=== PATIENT | male | born 1945 | race Caucasian/White ===

== ENCOUNTER 2022-03-22 05:00 | Outpatient (REF) | payer MEDICARE, SELFPAY ==
[2022-03-22 09:47] LABS: ALB/GLOB Ratio 1.1 RATIO (0.9-2.4); AST(SGOT) 7 U/L (15-37); Alanine Aminotransfer ALT/SGPT 13 U/L (16-61); Alkaline Phosphatase 49 U/L (45-117); Anion Gap 8 (5-15); BUN 14 mg/dL (7-18); BUN/Creat Ratio 15.3 RATIO (10-20); Calcium,Total 8.8 mg/dL (8.5-10.1); Chloride 109 mmol/L (98-107); Cholesterol 108 mg/dL (200); Creatinine, Serum 0.92 mg/dL (0.70-1.30); EST Glomerular Filtration Rate 86 mL/min (>60); Est Glom Filt Rate - Afr Amer 103 mL/min (>60); Globulin 2.8 g/dL (2.2-4.2); Glucose 85 mg/dL (74-106); High Density Lipoprotein 51 mg/dL; Magnesium 2.3 mg/dL (1.6-2.6); Potassium 3.5 mmol/L (3.5-5.1); Protein, Total 5.8 g/dL (6.4-8.2); Sodium Level 143 mmol/L (136-145); Thyroid Stim Hormone (TSH) 0.75 uIU/mL (0.358-3.74); Triglycerides 63 mg/dL; Very Low Density Lipoprotein 13 mg/dL (5-40)
[2022-03-22 09:55] LABS: Erythrocyte Sedimentation Rate < 1 mm/hr (0-20)
[2022-03-22 09:59] LABS: Hematocrit 41.3 % (40-54); Hemoglobin 13.4 g/dL (13.0-16.5); Mean Corp Hgb Conc 32.4 g/dL (32-36); Mean Corpuscular Hgb 30.1 pg (27.0-32.0); Mean Corpuscular Volume 92.8 fL (80-94); Mean Platelet Vol. 10.6 fl (6.2-12.0); Platelet Count 160 K/mm3 (150-450); RBC Distribution Width CV 14.9 % (11.6-14.6); RBC Distribution Width SD 51.2 fl (35.1-43.9); Red Blood Count 4.45 M/mm3 (4.6-6.2); White Blood Count 8.5 K/mm3 (4.4-11.0)
[2022-03-22 10:12] LABS: Vitamin D,25 Hydroxy 14.8 ng/mL
[2022-03-22 10:40] LABS: Hemoglobin A1c 5.2 % (3.8-5.6)
== END 2022-03-22 23:59 | disposition home or self-care (01) ==
LOC: OLS.ACW100 05:00
PROVIDERS: Referring Provider Family Medicine; Visit Provider Family Medicine
DX: M54.50 Low back pain, unspecified (principal); E78.5 Hyperlipidemia, unspecified; G56.03 Carpal tunnel syndrome, bilateral upper limbs; K21.9 Gastro-esophageal reflux disease without esophagitis; M13.80 Other specified arthritis, unspecified site
CPT/HCPCS: 36415; 80053; 80061; 82306; 82533; 83036; 83735; 84443; 85027; 85652

== ENCOUNTER → 2023-07-29 | Outpatient (REF) | payer MEDICARE, MEDICAID, SELFPAY ==
[2023-07-29 09:13] LABS: Hematocrit 40.2 % (40-54); Mean Corp Hgb Conc 32.3 g/dL (32-36); Mean Corpuscular Hgb 30.2 pg (27.0-32.0); Mean Corpuscular Volume 93.3 fL (80-94); Mean Platelet Vol. 10.8 fl (6.2-12.0); Platelet Count 190 K/mm3 (150-450); RBC Distribution Width CV 15.4 % (11.6-14.6); RBC Distribution Width SD 53.4 fl (35.1-43.9); Red Blood Count 4.31 M/mm3 (4.6-6.2); White Blood Count 8.9 K/mm3 (4.4-11.0)
[2023-07-29 09:32] LABS: AST(SGOT) 8 U/L (15-37); Alanine Aminotransfer ALT/SGPT 16 U/L (16-61); Albumin, Serum 2.9 g/dL (3.2-5.0); Alkaline Phosphatase 77 U/L (45-117); Anion Gap 3 (5-15); BUN 15 mg/dL (7-18); BUN/Creat Ratio 13.4 RATIO (10-20); Calcium,Total 8.4 mg/dL (8.5-10.1); Chloride 110 mmol/L (98-107); Cholesterol 101 mg/dL (200); Creatinine, Serum 1.12 mg/dL (0.70-1.30); EST Glomerular Filtration Rate 68 mL/min (>60); Est Glom Filt Rate - Afr Amer 82 mL/min (>60); Globulin 2.9 g/dL (2.2-4.2); Glucose 98 mg/dL (74-106); High Density Lipoprotein 55 mg/dL; Potassium 3.9 mmol/L (3.5-5.1); Protein, Total 5.8 g/dL (6.4-8.2); Sodium Level 141 mmol/L (136-145); Triglycerides 51 mg/dL; Very Low Density Lipoprotein 10 mg/dL (5-40)
[2023-07-29 09:45] LABS: Vitamin D,25 Hydroxy 95.1 ng/mL
== END ==
LOC: OLS.ACW300 05:00
PROVIDERS: Visit Provider Family Medicine
DX: M54.50 Low back pain, unspecified (principal); E55.9 Vitamin D deficiency, unspecified; F41.9 Anxiety disorder, unspecified; R53.1 Weakness; F03.90 Unspecified dementia, unspecified severity, without behavioral disturbance, psychotic disturbance, mood disturbance, and anxiety; Z79.899 Other long term (current) drug therapy
CPT/HCPCS: 36415; 80053; 80061; 82306; 85027

== ENCOUNTER → 2023-11-28 | Outpatient (REF) | payer MEDICARE, MEDICAID, SELFPAY ==
[2023-11-28 09:48] LABS: Cholesterol 115 mg/dL (200); High Density Lipoprotein 55 mg/dL; Triglycerides 51 mg/dL; Very Low Density Lipoprotein 10 mg/dL (5-40)
== END ==
LOC: OLS.ACW300 05:00
PROVIDERS: Visit Provider Family Medicine
DX: F03.90 Unspecified dementia, unspecified severity, without behavioral disturbance, psychotic disturbance, mood disturbance, and anxiety (principal); R53.1 Weakness; F41.9 Anxiety disorder, unspecified; Z79.899 Other long term (current) drug therapy
CPT/HCPCS: 36415; 80061

== ENCOUNTER → 2024-03-29 | Outpatient (REF) | payer MEDICARE, MEDICAID, SELFPAY ==
[2024-03-29 09:25] LABS: Cholesterol 109 mg/dL (200); High Density Lipoprotein 56 mg/dL; Triglycerides 61 mg/dL; Very Low Density Lipoprotein 12 mg/dL (5-40)
== END ==
LOC: OLS.ACW300 05:00
PROVIDERS: Visit Provider Family Medicine
DX: M54.50 Low back pain, unspecified (principal); F41.9 Anxiety disorder, unspecified; R53.1 Weakness; F03.90 Unspecified dementia, unspecified severity, without behavioral disturbance, psychotic disturbance, mood disturbance, and anxiety
CPT/HCPCS: 36415; 80061

== ENCOUNTER → 2024-07-30 | Outpatient (REF) | payer MEDICARE, MEDICAID, SELFPAY ==
[2024-07-30 08:17] LABS: Hematocrit 43.1 % (40-54); Hemoglobin 13.6 g/dL (13.0-16.5); Mean Corp Hgb Conc 31.6 g/dL (32-36); Mean Corpuscular Volume 91.9 fL (80-94); Mean Platelet Vol. 10.6 fl (6.2-12.0); Platelet Count 168 K/mm3 (150-450); RBC Distribution Width SD 50.5 fl (35.1-43.9); Red Blood Count 4.69 M/mm3 (4.6-6.2); White Blood Count 7.7 K/mm3 (4.4-11.0)
[2024-07-30 08:44] LABS: AST(SGOT) 10 U/L (15-37); Alanine Aminotransfer ALT/SGPT 17 U/L (16-61); Albumin, Serum 3.2 g/dL (3.2-5.0); Alkaline Phosphatase 78 U/L (45-117); Anion Gap 5 (5-15); BUN 14 mg/dL (7-18); BUN/Creat Ratio 13.5 RATIO (10-20); Chloride 110 mmol/L (98-107); Cholesterol 100 mg/dL (200); Creatinine, Serum 1.04 mg/dL (0.70-1.30); EST Glomerular Filtration Rate 73 mL/min (>60); Est Glom Filt Rate - Afr Amer 89 mL/min (>60); Globulin 3.1 g/dL (2.2-4.2); Glucose 91 mg/dL (74-106); High Density Lipoprotein 54 mg/dL; Potassium 3.8 mmol/L (3.5-5.1); Protein, Total 6.3 g/dL (6.4-8.2); Sodium Level 141 mmol/L (136-145); Triglycerides 64 mg/dL; Very Low Density Lipoprotein 13 mg/dL (5-40)
== END ==
LOC: OLS.ACW200 05:00
PROVIDERS: Visit Provider Family Medicine
DX: M54.50 Low back pain, unspecified (principal); R26.81 Unsteadiness on feet; R41.841 Cognitive communication deficit; R53.81 Other malaise; E55.9 Vitamin D deficiency, unspecified; Z79.899 Other long term (current) drug therapy
CPT/HCPCS: 36415; 80053; 80061; 82306; 85027

== ENCOUNTER → 2024-11-28 | Outpatient (REF) | payer MEDICARE, MEDICAID, SELFPAY ==
[2024-11-28 10:10] LABS: Cholesterol 105 mg/dL (<=200); High Density Lipoprotein 50 mg/dL; Low Density Lipoprotein Calc. 43 mg/dL; Triglycerides 60 mg/dL; Very Low Density Lipoprotein 12 mg/dL (5-40); cholesterol:hdl ratio screen 2.11
== END ==
LOC: OLS.ACW300 05:00
PROVIDERS: Visit Provider Family Medicine
DX: M54.50 Low back pain, unspecified (principal); R53.81 Other malaise; F41.9 Anxiety disorder, unspecified
CPT/HCPCS: 36415; 80061

== ENCOUNTER → 2024-12-03 | Outpatient (REF) | payer MEDICARE, MEDICAID, SELFPAY ==
[2024-12-03 10:14] LABS: AST(SGOT) 17 U/L (<=37); Alanine Aminotransfer ALT/SGPT 14 U/L (<=46); Albumin, Serum 3.7 g/dL (3.4-4.8); Alkaline Phosphatase 86 U/L (40-129); Bilirubin, Direct 0.33 mg/dL (0.00-0.30); Cholesterol 106 mg/dL (<=200); Globulin 2.6 g/dL (2.2-4.2); High Density Lipoprotein 50 mg/dL; Low Density Lipoprotein Calc. 42 mg/dL; Protein, Total 6.3 g/dL (5.9-8.4); Total Bilirubin 0.63 mg/dL (0.00-1.30); Triglycerides 71 mg/dL; Very Low Density Lipoprotein 14 mg/dL (5-40); cholesterol:hdl ratio screen 2.13
== END ==
LOC: OLS.ACW300 05:00
PROVIDERS: Visit Provider Family Medicine
DX: M54.50 Low back pain, unspecified (principal); M24.50 Contracture, unspecified joint; R26.81 Unsteadiness on feet; R53.81 Other malaise; F41.9 Anxiety disorder, unspecified; Z79.899 Other long term (current) drug therapy
CPT/HCPCS: 36415; 80061; 80076

== ENCOUNTER → 2025-01-28 05:00 | Outpatient (REF) | payer MEDICARE, MEDICAID, SELFPAY ==
[2025-01-28 08:41] LABS: Hematocrit 40.7 % (40-54); Hemoglobin 13.1 g/dL (13.0-16.5); Mean Corp Hgb Conc 32.2 g/dL (32-36); Mean Corpuscular Hgb 30.3 pg (27.0-32.0); Mean Corpuscular Volume 94.2 fL (80-94); Mean Platelet Vol. 10.4 fl (6.2-12.0); Platelet Count 207 K/mm3 (150-450); RBC Distribution Width CV 15.1 % (11.6-14.6); RBC Distribution Width SD 52.6 fl (35.1-43.9); Red Blood Count 4.32 M/mm3 (4.6-6.2)
[2025-01-28 09:37] LABS: ALB/GLOB Ratio 1.6 RATIO (0.9-2.4); AST(SGOT) 13 U/L (<=37); Alanine Aminotransfer ALT/SGPT 16 U/L (<=46); Albumin, Serum 3.7 g/dL (3.4-4.8); Alkaline Phosphatase 92 U/L (40-129); Anion Gap 10 (5-15); BUN 15 mg/dL (4-19); BUN/Creat Ratio 14.5 RATIO (10-20); Calcium,Total 9.2 mg/dL (7.6-11.0); Carbon Dioxide 24.8 mmol/L (21.0-32.0); Chloride 106 mmol/L (98-108); Creatinine, Serum 1.05 mg/dL (0.70-1.20); EST Glomerular Filtration Rate 73 (>60); Globulin 2.4 g/dL (2.2-4.2); Glucose 94 mg/dL (70-99); Potassium 4.5 mmol/L (3.3-5.1); Protein, Total 6.1 g/dL (5.9-8.4); Sodium Level 141 mmol/L (133-145); Vitamin D,25 Hydroxy 30.1 ng/mL (30-100)
== END ==
LOC: OLS.ACW300 05:00
PROVIDERS: Visit Provider Family Medicine
DX: M54.50 Low back pain, unspecified (principal); M24.50 Contracture, unspecified joint; R26.81 Unsteadiness on feet; R41.841 Cognitive communication deficit; R53.81 Other malaise; R27.9 Unspecified lack of coordination
CPT/HCPCS: 36415; 80053; 82306; 85027

== ENCOUNTER → 2025-07-03 | Outpatient (REF) | payer MEDICARE, MEDICAID, SELFPAY ==
--- OUTSIDE RECORDS SUMMARY | 2025-07-03 04:28 | XMS RPT_ITS | CCD ---
Author Organization [facility] Care Team Providers Care Repair Specialist Name Role Phone Eric Mcdermott Primary Care Provider Barrett Martinez Attending Provider Unavailtyler e Barrett Martinez Attending Unavailable Barrett Martinez Attending Unavailable Barrett Martinez Attending Unavailable Barrett Martinez Attending Unavailable Barrett Martinez Attending Unavailable Allergies Allergy Classification Reported Allergen(s) Allergy Type Date of Onset Reaction(s) Facility Acetaminophen / oxyCODONE (2 sources) Acetaminophen / oxyCODONE Drug Allergy 1 [facility] Opioid Agonists (3 sources) Propoxyphene Drug Allergy 1 Nausea And Vomiting [facility] (1 source) Acetaminophen / oxyCODONE Drug Allergy 1 [facility] Work Phone: (1 source) HYDROcodone Drug Allergy 1 Nausea And Vomiting [facility] (1 source) Propoxyphene Drug Allergy 1 [facility] Medications Current Medications Medication Drug Class(es) Dates Sig (Normalized) Sig (Original) acetaminophen 500 mg oral tablet (2 sources) End: 02-10-2021 take 1 tablet by mouth once daily before breakfast acetaminophen (TYLENOL) 500 MG tablet Take 500 mg by mouth every morning (before breakfast) 0 02/10/2021 Discontinued (Stop Taking at Discharge) acetaminophen 300 mg / codeine phosphate 30 mg oral tablet (1 source) Opioid Agonist Start: 02-10-2021 End: 02-17-2021 acetaminophen-codei ne (TYLENOL/CODEINE #3) 300-30 MG per tablet Indications: Carpal tunnel syndrome of right wrist Take 1 tablet by mouth every 4 hours as needed for Pain for up to 7 days. Intended supply: 7 days. Take lowest dose possible to manage pain 42 tablet 0 02/10/2021 02/17/2021 Active ALPRAZolam 0.25 mg disintegrating oral tablet (1 source) Benzodiazepine Start: 02-10-2021 ALPRAZolam (NIRAVAM) dissolvable tablet 0.25 mg atorvastatin 20 mg oral tablet (3 sources) HMG-CoA Reductase Inhibitor Start: 12-07-2020 take 1 tablet by mouth once daily at bedtime atorvastatin (LIPITOR) 20 MG tablet TAKE 1 TABLET BY MOUTH EVERYDAY AT BEDTIME 0 12/07/2020 Active calcium chloride 0.0014 meq/ml / potassium chloride 0.004 meq/ml / sodium chloride 0.103 meq/ml / sodium lactate 0.028 meq/ml injectable solution (1 source) Start: 02-10-2021 lactated ringers infusion 1 ml diphenhydrAMINE hydrochloride 50 mg/ml cartridge (1 source) Histamine-1 Receptor Antagonist Start: 02-10-2021 End: 02-10-2021 diphenhydrAMINE (BENADRYL) injection 12.5 mg fluticasone propionate 0.05 mg/actuat metered dose nasal spray (3 sources) Corticosteroid Start: 12-07-2020 take 1-2 spray(s) nasal route once daily fluticasone (FLONASE) 50 MCG/ACT nasal spray INSTILL 1 TO 2 SPRAYS IN EACH NOSTRIL ONCE A DAY 0 12/07/2020 Active 1 ml hydrALAZINE hydrochloride 20 mg/ml injection (1 source) Arteriolar Vasodilator Start: 02-10-2021 hydrALAZINE (APRESOLINE) injection 5 mg labetalol hydrochloride 5 mg/ml injectable solution (1 source) beta-Adrenergic Gallo Start: 02-10-2021 labetalol (NORMODYNE;TRANDATE ) injection 5 mg 2 ml midazolam 1 mg/ml injection (1 source) Benzodiazepine Start: 02-10-2021 midazolam (VERSED) injection 2 mg omeprazole 20 mg delayed release oral capsule (3 sources) Proton Pump Inhibitor Start: 11-13-2020 take 1 capsule by mouth every other day as needed omeprazole (PRILOSEC) 20 MG delayed release capsule TAKE 1 CAPSULE BY MOUTH EVERY OTHER DAY NEEDED FOR 90 DAYS 0 11/13/2020 Active ondansetron 4 mg oral tablet (2 sources) Serotonin-3 Receptor Antagonist Start: 02-10-2021 take 1 tablet by mouth three times daily as needed for nausea ondansetron (ZOFRAN) 4 MG tablet Take 1 tablet by mouth 3 times daily as needed for Nausea or Vomiting 15 tablet 0 02/10/2021 Active Start: 02-10-2021 End: 02-10-2021 ondansetron (ZOFRAN) injecti on 4 mg 1 ml promethazine hydrochloride 25 mg/ml injection (1 source) Phenothiazine Start: 02-10-2021 End: 02-10-2021 promethazine (PHENERGAN) injection 6.25 mg 3 ml sodium chloride 9 mg/ml injection (4 sources) Start: 02-10-2021 End: 02-10-2021 0.9 % sodium chloride bolus Start: 02-10-2021 0.9 % sodium c hloride infusion Start: 02-10-2021 sodium chlorid e flush 0.9 % injection 5-40 mL sodium chloride flush 0.9 % injection 3 mL (1 source) Start: 03-17-2022 sodium chlorid e flush 0.9 % injection 3 mL Completed/Discontinued Medications Medication Drug Class(es) Dates Sig (Normalized) Sig (Original) aprepitant 40 mg oral capsule (1 source) Substance P/Neurokinin-1 Receptor Antagonist Start: 02-10-2021 End: 02-10-2021 aprepitant (EMEND) capsule 40 mg Start: 02-10-2021 End: 02-10-2021 aprepitant (EMEND) capsule 4 0 mg dexameth sod cudr-ozszo-yyke (TAP) syringe SOSY 30 mL (1 source) Start: 02-10-2021 End: 02-10-2021 dexameth sod jbfx-cvwjc-thht (TAP) syringe SOSY 30 mL famotidine 20 mg oral tablet (1 source) Histamine-2 Receptor Antagonist Start: 02-10-2021 End: 02-10-2021 famotidine (PEPCID) tablet 20 mg 10 ml lidocaine hydrochloride 10 mg/ml injection (3 sources) Antiarrhythmic, Amide Local Anesthetic Start: 02-10-2021 End: 02-10-2021 lidocaine PF 1 % injection 2 mL Start: 02-10-2021 End: 02-10-2021 lidocaine PF 1 % injection Start: 02-10-2021 End: 02-10-2021 lidocaine PF 1 % injection 1 mL Problems Problem Classification Problem Date Documented Date Episodic/Chronic Anxiety disorders (2 sources) Anxiety disorder, unspecified; Translations: [Anxiety disorder, unspecified] Onset: 12-25-2024 Chronic Delirium, dementia, and amnestic and other cognitive disorders (1 source) Unspecified dementia without behavioral disturbance; Translations: [Unspecified dementia, unspecified severity, without behavioral disturbance, psychotic disturbance, mood disturbance, and anxiety] Onset: 06-01-2024 Chronic Malaise and fatigue (3 sources) Other malaise; Translations: [Weakness] Onset: 06-01-2024 Episodic Other acquired deformities (2 sources) Contracture, unspecified joint; Translations: [Contracture, unspecified joint] Onset: 12-25-2024 Chronic Other connective tissue disease (1 source) Weakness of right leg; Translations: [Other symptoms and signs involving the musculoskeletal system] Episodic Other connective tissue disease (1 source) Recurrent falls ; Translations: [Repeated falls] Episodic Other nervous system disorders (1 source) Carpal tunnel syndrome of right wrist; Translations: [Carpal tunnel syndrome, right upper limb] Chronic Other nervous system disorders (2 sources) Cognitive communication deficit; Translations: [Cognitive communication deficit] Onset: 12-25-2024 Chronic Other nervous system disorders (2 sources) Unsteadiness on feet; Translations: [Unsteadiness on feet] Onset: 12-19-2024 Episodic Other nervous system disorders (2 sources) Unspecified lack of coordination; Translations: [Unspecified lack of coordination] Onset: 12-25-2024 Episodic Spondylosis; intervertebral disc disorders; other back problems (1 source) Degeneration of lumbar intervertebral disc; Translations: [Other intervertebral disc degeneration, lumbar region] Chronic Unclassified (2 sources) Low back pain, unspecified; Translations: [Low back pain, unspecified] Onset: 12-25-2024 Results Test Name Value Interpretation Reference Range Facility Bilirubin directOrdered By: Barrett Razo on 12-03-2024 Bilirubin.direct [Mass/Vol] 0.33 mg/dL High 0.00-0.30 [facility] Bilirubin, totalOrdered By: Barrett Razo on 12-03-2024 Bilirubin [Mass/Vol] 0.63 mg/dL 0.00-1.30 [facility] Calculated very low density lipoprotein (VLDL) cholesterol measurementOrdered By: Barrett Razo on 12-03-2024 VLDL Cholesterol 14 mg/dL 5-40 [facility] LDL calc ser/plasOrdered By: Barrett Razo on 12-03-2024 LDL Cholesterol, Calculated 42 mg/dL [facility] Comment on above: Zcdgqzfqij=686-329 m g/dL & Higher Ayoh=435 mg/dL or greater Laboratory - Chemistry and C hemistry - challengeOrdered By: Barrett Razo on 12-03-2024 AST [Catalytic activity/Vol] 17 U/L <38 [facility] Screening total cholesterol/ high density lipoprotein (HDL) cholesterol ratioOrdered By: Barrett Razo on 12-03-2024 Cholesterol.total/Monique sterol in HDL [Mass ratio] 2.13 {ratio} [facility] Serum globulin measurementOr dered By: Barrett Razo on 12-03-2024 Globulin (S) [Mass/Vol] 2.6 g/dL 2.2-4.2 [facility] Serum or plasma alanine aguirre otransferase (ALT) measurementOrdered By: Barrett Razo on 12-03-2024 ALT [Catalytic activity/Vol] 14 U/L <47 [facility] Serum or plasma albumin juma urement (mass/volume)Ordered By: Barrett Razo on 12-03-2024 Albumin [Mass/Vol] 3.7 g/dL 3.4-4.8 [facility] Serum or plasma alkaline paula sphatase measurementOrdered By: Barrett Razo on 12-03-2024 ALP [Catalytic activity/Vol] 86 U/L 40-129 [facility] Serum or plasma cholesterol in HDL measurement (mass/volume)Ordered By: Barrett Razo on 12-03-2024 Cholesterol in HDL [Mass/Vol] 50 mg/dL >40 [facility] Comment on above: National Cholesterol Education Program (NCEP) guidelines:<40 mg/dL: Low HDL-cholesterol (major risk factor for CHD)>= 60 mg/dL: High HDL-cholesterol (negative risk factor for CHD)HDL-cholesterol is affected by a number of factors, e.g. smoking, exercise, hormones, sex and age. Serum or plasma cholesterol measurement (mass/volume)Ordered By: Barrett Razo on 12-03-2024 Cholesterol [Mass/Vol] 106 mg/dL <201 [facility] Comment on above: Cholesterol level, D esirable <200 mg/dLBorderline high cholesterol 200-239 mg/dLHigh cholesterol >=240 mg/dLRecommendations of the NCEP Adult Treatment Panel for the following risk-cutoff thresholds for the [place] population. Total proteinOrdered By: Gregorio Razo on 12-03-2024 Protein [Mass/Vol] 6.3 g/dL 5.9-8.4 [facility] Triglycerides measurementOrd ered By: Barrett Razo on 12-03-2024 Triglyceride [Mass/Vol] 71 mg/dL <199 [facility] Comment on above: The drugs N-Acetylcy steine and Metamizole may falsely depress this assay. Normal range: <150 mg/dLBorderline High: 150-199 mg/dLHigh: 200-499 mg/dLVery High: >500 mg/dL Calculated very low density lipoprotein (VLDL) cholesterol measurementOrdered By: Barrett Razo on 11-28-2024 VLDL Cholesterol 12 mg/dL 5-40 [facility] LDL calc ser/plasOrdered By: Barrett Razo on 11-28-2024 LDL Cholesterol, Calculated 43 mg/dL [facility] Comment on above: Flyowciwda=199-142 m g/dL & Higher Uavq=190 mg/dL or greater Screening total cholesterol/ high density lipoprotein (HDL) cholesterol ratioOrdered By: Barrett Razo on 11-28-2024 Cholesterol.total/Monique sterol in HDL [Mass ratio] 2.11 {ratio} [facility] Serum or plasma cholesterol in HDL measurement (mass/volume)Ordered By: Barrett Razo on 11-28-2024 Cholesterol in HDL [Mass/Vol] 50 mg/dL >40 [facility] Comment on above: National Cholesterol Education Program (NCEP) guidelines:<40 mg/dL: Low HDL-cholesterol (major risk factor for CHD)>= 60 mg/dL: High HDL-cholesterol (negative risk factor for CHD)HDL-cholesterol is affected by a number of factors, e.g. smoking, exercise, hormones, sex and age. Serum or plasma cholesterol measurement (mass/volume)Ordered By: Barrett Razo on 11-28-2024 Cholesterol [Mass/Vol] 105 mg/dL <201 [facility] Comment on above: Cholesterol level, D esirable <200 mg/dLBorderline high cholesterol 200-239 mg/dLHigh cholesterol >=240 mg/dLRecommendations of the NCEP Adult Treatment Panel for the following risk-cutoff thresholds for the [place] population. Triglycerides measurementOrd ered By: Barrett Razo on 11-28-2024 Triglyceride [Mass/Vol] 60 mg/dL <199 [facility] Comment on above: The drugs N-Acetylcy steine and Metamizole may falsely depress this assay. Normal range: <150 mg/dLBorderline High: 150-199 mg/dLHigh: 200-499 mg/dLVery High: >500 mg/dL Basophil percentageOrdered B y: Barrett Razo on 11-28-2023 Cholesterol [Mass/Vol] 115 mg/dL <200 [facility] Comment on above: <200 mg/dL Desirable 200-240 mg/dL Borderline >240 mg/dL High Risk Triglyceride [Mass/Vol] 51 mg/dL <199 [facility] Comment on above: The drugs N-Acetylcy steine and Metamizole may falsely depress this assay.Serum Triglycerides Reference Interval Normal <150 mg/dL Borderline high 150 - 199 mg/dL High 200 - 499 mg/dL Very High > or = 500 mg/dL Laboratory - Chemistry and C hemistry - challengeOrdered By: Barrett Razo on 11-28-2023 Cholesterol in HDL [Mass/Vol] 55 mg/dL >40 [facility] Comment on above: The drugs N-Acetylcy steine and Metamizole may falsely depress this assay. Reference Range HDL <40 mg/dL Low HDL Cholesterol HDL >or= 60 mg/dL High HDL Cholesterol Cholesterol in LDL [Mass/Vol] 50 mg/dL 0-130 [facility] No Panel InformationOrdered By: Barrett Razo on 11-28-2023 VLDL Cholesterol 10 mg/dL 5-40 [facility] Basophil percentageOrdered B y: Barrett Razo on 07-29-2023 Bilirubin [Mass/Vol] 0.50 mg/dL 0.20-1.[address] [facility] Comment on above: For patients on eltr ombopag therapy, use of Dimension [place] TBIL is not recommended. Chloride [Moles/Vol] 110 mmol/L 98-107 [facility] Cholesterol [Mass/Vol] 101 mg/dL <200 [facility] Comment on above: <200 mg/dL Desirable 200-240 mg/dL Borderline >240 mg/dL High Risk Glucose [Mass/Vol] 98 mg/dL 74-106 [facility] Potassium [Moles/Vol] 3.9 mmol/L 3.5-5.1 [facility] Protein [Mass/Vol] 5.8 g/dL 6.4-8.2 [facility] Sodium [Moles/Vol] 141 mmol/L 136-145 [facility] Triglyceride [Mass/Vol] 51 mg/dL <199 [facility] Comment on above: The drugs N-Acetylcy steine and Metamizole may falsely depress this assay.Serum Triglycerides Reference Interval Normal <150 mg/dL Borderline high 150 - 199 mg/dL High 200 - 499 mg/dL Very High > or = 500 mg/dL WBC (Bld) [#/Vol] 8.9 10*3/uL 4.4-11.0 [facility] Blood erythrocytes count (nu mber/volume)Ordered By: Barrett Razo on 07-29-2023 RBC (Bld) [#/Vol] 4.31 10*6/uL 4.6-6.2 [facility] Blood hemoglobin measurement (mass/volume)Ordered By: Barrett Razo on 07-29-2023 Hemoglobin (Bld) [Mass/Vol] 13.0 g/dL 13.0-16.5 [facility] Blood platelet mean volumeOr dered By: Barrett Razo on 07-29-2023 Platelet mean volume (Bld) [Entitic vol] 10.8 fL 6.2-12.0 [facility] Determination of erythrocyte mean corpuscular volume (MCV)Ordered By: Barrett Razo on 07-29-2023 MCV (RBC) [Entitic vol] 93.3 fL 80-94 [facility] Hematocrit Auto (Bld) [Volum e fraction]Ordered By: Barrett Razo on 07-29-2023 Hematocrit (Bld) [Volume fraction] 40.2 % 40-54 [facility] Laboratory - Chemistry and C hemistry - challengeOrdered By: Barrett Razo on 07-29-2023 ALP [Catalytic activity/Vol] 77 U/L 45-117 [facility] ALT [Catalytic activity/Vol] 16 U/L 16-61 [facility] CO2 [Moles/Vol] 28.0 mmol/L 21.0-32.0 [facility] Globulin (S) [Mass/Vol] 2.9 g/dL 2.2-4.2 [facility] Urea nitrogen/Creatinine [Mass ratio] 13.4 mg/mg 10-20 [facility] Laboratory - Hematology and Cell countsOrdered By: Barrett Razo on 07-29-2023 Erythrocyte distribution width (RBC) [Entitic vol] 53.4 fL 35.1-43.9 [facility] Erythrocyte distribution width (RBC) [Ratio] 15.4 % 11.6-14.6 [facility] MCH (RBC) [Entitic mass] 30.2 pg 27.0-32.0 [facility] MCHC Auto (RBC) [Mass/Vol]Or dered By: Barrett Razo on 07-29-2023 MCHC (RBC) [Mass/Vol] 32.3 g/dL 32-36 [facility] No Panel InformationOrdered By: Barrett Razo on 07-29-2023 Estimated GFR (MDRD) Amer 82 mL/min >60 [facility] Comment on above: GFR Calc Estimated GFR (MDRD) Non-Af Amer 68 mL/min >60 [facility] Comment on above: Non- GFR Calc Vitamin D 25-Hydroxy 95.1 ng/mL [facility] Comment on above: Vitamin D 25(OH) Sta tus Range Deficiency <20 ng/mL (50nmol/L) Insufficiency 20 - 30 ng/mL (50 - 75 nmol/L) Sufficiency 30 - 100 ng/mL (75 - 250 nmol/L) Toxicity >100 ng/mL (>250 nmol/L) Platelets bldOrdered By: Gregorio Razo on 07-29-2023 Platelets (Bld) [#/Vol] 190 10*3/uL 150-450 [facility] Serum or plasma albumin juma urement (mass/volume)Ordered By: Barrett Razo on 07-29-2023 Albumin [Mass/Vol] 2.9 g/dL 3.2-5.0 [facility] Serum or plasma albumin/glob ulin mass ratioOrdered By: Barrett Razo on 07-29-2023 Albumin/Globulin [Mass ratio] 1.0 {ratio} 0.9-2.4 [facility] Serum or plasma calcium juma urement (mass/volume)Ordered By: Barrett Razo on 07-29-2023 Calcium [Mass/Vol] 8.4 mg/dL 8.5-10.1 [facility] Serum or plasma cholesterol in HDL measurement (mass/volume)Ordered By: Barrett Razo on 07-29-2023 Cholesterol in HDL [Mass/Vol] 55 mg/dL >40 [facility] Comment on above: The drugs N-Acetylcy steine and Metamizole may falsely depress this assay. Reference Range HDL <40 mg/dL Low HDL Cholesterol HDL >or= 60 mg/dL High HDL Cholesterol Serum or plasma cholesterol in VLDL measurement (mass/volume)Ordered By: Barrett Razo on 07-29-2023 Cholesterol in VLDL [Mass/Vol] 10 mg/dL 5-40 [facility] Serum or plasma creatinine m easurement (mass/volume)Ordered By: Barrett Razo on 07-29-2023 Creatinine [Mass/Vol] 1.12 mg/dL 0.70-1.30 [facility] Comment on above: The validity of the calculated GFR & GFRAA in patients over 70 years has not been determined. Clinical correlation is essential. Serum or plasma low density lipoprotein (LDL) cholesterol measurement (mass/volume)Ordered By: Barrett Razo on 07-29-2023 Cholesterol in LDL [Mass/Vol] 36 mg/dL 0-130 [facility] Serum or plasma urea nitroge n measurement (mass/volume)Ordered By: Barrett Razo on 07-29-2023 Urea nitrogen [Mass/Vol] 15 mg/dL 7-18 [facility] Thin prep Papanicolaou smear with manual screeningOrdered By: Barrett Razo on 07-29-2023 Thin prep Papanicolaou smear with manual screening 8 U/L 15-37 [facility] Thin prep Papanicolaou smear with manual screening 3 5-15 [facility] Basophil percentageon 2021 Bilirubin [Mass/Vol] 0.60 mg/dL 0.20-1.00 [facility] Work Phone: Comment on above: For patients on eltr ombopag therapy, use of Dimension [place] TBIL is not recommended. Chloride [Moles/Vol] 109 mmol/L 98-107 [facility] Work Phone: Cholesterol [Mass/Vol] 108 mg/dL <200 [facility] Work Phone: Comment on above: <200 mg/dL Desirable 200-240 mg/dL Borderline >240 mg/dL High Risk Glucose [Mass/Vol] 85 mg/dL 74-106 [facility] Work Phone: Potassium [Moles/Vol] 3.5 mmol/L 3.5-5.1 [facility] Work Phone: Protein [Mass/Vol] 5.8 g/dL 6.4-8.2 [facility] Work Phone: Sodium [Moles/Vol] 143 mmol/L 136-145 [facility] Work Phone: Triglyceride [Mass/Vol] 63 mg/dL <199 [facility] Work Phone: Comment on above: The drugs N-Acetylcy steine and Metamizole may falsely depress this assay.Serum Triglycerides Reference Interval Normal <150 mg/dL Borderline high 150 - 199 mg/dL High 200 - 499 mg/dL Very High > or = 500 mg/dL WBC (Bld) [#/Vol] 8.5 10*3/uL 4.4-11.0 [facility] Work Phone: Blood erythrocytes count (nu mber/volume)on 03-22-2022 RBC (Bld) [#/Vol] 4.45 10*6/uL 4.6-6.2 [facility] Work Phone: Blood hemoglobin measurement (mass/volume)on 03-22-2022 Hemoglobin (Bld) [Mass/Vol] 13.4 g/dL 13.0-16.5 [facility] Work Phone: Blood platelet mean volumeon 03-22-2022 Platelet mean volume (Bld) [Entitic vol] 10.6 fL 6.2-12.0 [facility] Work Phone: Determination of erythrocyte mean corpuscular volume (MCV)on 03-22-2022 MCV (RBC) [Entitic vol] 92.8 fL 80-94 [facility] Work Phone: Erythrocyte sedimentation ra antony 03-22-2022 ESR (Bld) [Velocity] mm/h 0-20 [facility] Work Phone: Hematocrit Auto (Bld) [Volum e fraction]on 03-22-2022 Hematocrit (Bld) [Volume fraction] 41.3 % 40-54 [facility] Work Phone: Laboratory - Chemistry and C hemistry - challengeon 03-22-2022 ALP [Catalytic activity/Vol] 49 U/L 45-117 [facility] Work Phone: ALT [Catalytic activity/Vol] 13 U/L 16-61 [facility] Work Phone: CO2 [Moles/Vol] 26.0 mmol/L 21.0-32.0 [facility] Work Phone: Globulin (S) [Mass/Vol] 2.8 g/dL 2.2-4.2 [facility] Work Phone: Magnesium [Mass/Vol] 2.3 mg/dL 1.6-2.6 [facility] Work Phone: Urea nitrogen/Creatinine [Mass ratio] 15.3 mg/mg 10-20 [facility] Work Phone: Laboratory - Hematology and Cell countson 03-22-2022 Erythrocyte distribution width (RBC) [Entitic vol] 51.2 fL 35.1-43.9 [facility] Work Phone: Erythrocyte distribution width (RBC) [Ratio] 14.9 % 11.6-14.6 [facility] Work Phone: MCH (RBC) [Entitic mass] 30.1 pg 27.0-32.0 [facility] Work Phone: MCHC Auto (RBC) [Mass/Vol]on 03-22-2022 MCHC (RBC) [Mass/Vol] 32.4 g/dL 32-36 [facility] Work Phone: No Panel Informationon 03-22 Estimated GFR (MDRD) Amer 103 mL/min >60 [facility] Work Phone: Comment on above: GFR Calc Estimated GFR (MDRD) Non-Af Amer 86 mL/min >60 [facility] Work Phone: Comment on above: Non- GFR Calc Thyroid Stimulating Hormone (TSH) 0.75 uIU/mL 0.358-3.74 [facility] Work Phone: Vitamin D 25-Hydroxy 14.8 ng/mL [facility] Work Phone: Comment on above: Vitamin D 25(OH) Sta tus Range Deficiency <20 ng/mL (50nmol/L) Insufficiency 20 - 30 ng/mL (50 - 75 nmol/L) Sufficiency 30 - 100 ng/mL (75 - 250 nmol/L) Toxicity >100 ng/mL (>250 nmol/L) Platelets bldon 03-22-2022 Platelets (Bld) [#/Vol] 160 10*3/uL 150-450 [facility] Work Phone: Serum or plasma albumin juma urement (mass/volume)on 03-22-2022 Albumin [Mass/Vol] 3.0 g/dL 3.2-5.0 [facility] Work Phone: Serum or plasma albumin/glob ulin mass ratioon 03-22-2022 Albumin/Globulin [Mass ratio] 1.1 {ratio} 0.9-2.4 [facility] Work Phone: Serum or plasma calcium juma urement (mass/volume)on 03-22-2022 Calcium [Mass/Vol] 8.8 mg/dL 8.5-10.1 [facility] Work Phone: Serum or plasma cholesterol in HDL measurement (mass/volume)on 03-22-2022 Cholesterol in HDL [Mass/Vol] 51 mg/dL >40 [facility] Work Phone: Comment on above: The drugs N-Acetylcy steine and Metamizole may falsely depress this assay. Reference Range HDL <40 mg/dL Low HDL Cholesterol HDL >or= 60 mg/dL High HDL Cholesterol Serum or plasma cholesterol in VLDL measurement (mass/volume)on 03-22-2022 Cholesterol in VLDL [Mass/Vol] 13 mg/dL 5-40 [facility] Work Phone: Serum or plasma cortisol deysi surement (mass/volume)on 03-22-2022 Cortisol [Mass/Vol] 10.20 ug/dL 3.44-22.45 [facility] Work Phone: Comment on above: Adult (AM) 5.27 - 22 .45 ug/dL Adult (PM) 3.44 - 16.76 ug/dLPlease note revised CORTISOL reference range effective 2019. Serum or plasma creatinine m easurement (mass/volume)on 03-22-2022 Creatinine [Mass/Vol] 0.92 mg/dL 0.70-1.30 [facility] Work Phone: Comment on above: The validity of the calculated GFR & GFRAA in patients over 70 years has not been determined. Clinical correlation is essential. Serum or plasma low density lipoprotein (LDL) cholesterol measurement (mass/volume)on 03-22-2022 Cholesterol in LDL [Mass/Vol] 44 mg/dL 0-130 [facility] Work Phone: Serum or plasma urea nitroge n measurement (mass/volume)on 03-22-2022 Urea nitrogen [Mass/Vol] 14 mg/dL 7-18 [facility] Work Phone: Thin prep Papanicolaou smear with manual screeningon 03-22-2022 Thin prep Papanicolaou smear with manual screening 7 U/L 15-37 [facility] Work Phone: Thin prep Papanicolaou smear with manual screening 8 5-15 [facility] Work Phone: Whole blood hemoglobin A1c/t otal hemoglobin ratio (mass fraction)on 03-22-2022 HbA1c (Bld) [Mass fraction] 5.2 % 3.8-5.6 [facility] Work Phone: Comment on above: Normal < 5.7 % Predi abetic 5.7 - 6.4 % Diabetic >or= 6.5 % Please note range changes. CBC with Auto Differentialon 03-17-2022 Absolute Baso # 0.1 10*3/uL 0 - 0.2 10*3/uL [facility] Absolute Neut # 6.0 10*3/uL 1.8 - 7 10*3/uL [facility] M[facility]C (RBC) [Mass/Vol] 34.0 % 32 - 36 % [facility] Platelet distribution width (Bld) [Ratio] 15.8 % High 11.5 - 14.5 % [facility] COVID-19, Flu A/B, and RSV C omboon 03-17-2022 Influenza A by PCR Not detected [facility] A Influenza B by PCR Not detected [facility] A RSV PCR Not Detected. Expected Result: Not Detected _ Method: Real-time, RT-PCR This assay was developed by [employer] and distributed under an Emergency Use Authorization (EUA) granted by the FDA for the qualitative detection of nucleic acids from SARS-CoV-2, Influenza A, Influenza B, and Respiratory Syncytial Virus. Provider and patient fact sheets can be found at https://www.fda.gov/ media/897217/downloa d and https://www.fda.gov/ media/343187/downloa d. [facility] SARS-CoV-2 (COVID-19) RNA VERENICE+probe Ql (Unsp spec) Not detected [facility] Test Performed by [facility] its learning [facility], [address] [place], [place] [id number] [place] [address] LAB [facility] CT Head WO Contraston 2021 Patient Name: JAC JIMENEZ Computed Tomography ACCESSION EXAM DATE/TIME PROCEDURE ORDERING PROVIDER [id number] 03/17/2022 13:[address] Head or Brain w/o JUSTYN MOORE DANIEL M Contrast CPT code 61072 Reason For Exam (CT Head or Brain w/o Contrast) weakness, falls Report Examination: CT head Technique: Axial CT images of the head were obtained without IV contrast at 5 mm intervals Indication: weakness, falls Findings: Vndh-jb-oaicsggy diffuse parenchymal volume loss is noted, evidence by prominence of the ventricles and sulci. There is at least moderate decreased attenuation is noted within the periventricular white matter, likely secondary to chronic small vessel ischemia. There is small amount of encephalomalacia along the left parietal lobe. The aleman-white differentiation is otherwise intact. There are no extra-axial fluid collections or acute intracranial hemorrhage appreciated. There is no midline shift identified. The bones and paranasal sinuses are grossly clear. The mastoid air cells are grossly unremarkable. Atherosclerotic calcification of the carotid siphons is noted. Impression: Likely chronic small vessel ischemic changes in the periventricular white matter. No acute intracranial abnormality. Report Dictated on --- Final --- Dictating Physician: MD ZAMUDIO KRIKOR Signed Date and Time: 03/17/2022 1:35 pm Signed by: MD ZAMUDIO KRIKOR Transcribed Date and Time: 03/17/2022 1:36 [facility] RAD Dann Zamudio MD - 03/17/2022 Patient Name: [facility] [id number] Computed Tomography ACCESSION EXAM DATE/TIME PROCEDURE ORDERING PROVIDER [id number] 03/17/2022 13:[address] Head or Brain w/o JUSTYN MOORE DANIEL M Contrast CPT code 85022 Reason For Exam (CT Head or Brain w/o Contrast) weakness, falls Report Examination: CT head Technique: Axial CT images of the head were obtained without IV contrast at 5 mm intervals Indication: weakness, falls Findings: Ohbr-hd-tpowiehk diffuse parenchymal volume loss is noted, evidence by prominence of the ventricles and sulci. There is at least moderate decreased attenuation is noted within the periventricular white matter, likely secondary to chronic small vessel ischemia. There is small amount of encephalomalacia along the left parietal lobe. The aleman-white differentiation is otherwise intact. There are no extra-axial fluid collections or acute intracranial hemorrhage appreciated. There is no midline shift identified. The bones and paranasal sinuses are grossly clear. The mastoid air cells are grossly unremarkable. Atherosclerotic calcification of the carotid siphons is noted. Impression: Likely chronic small vessel ischemic changes in the periventricular white matter. No acute intracranial abnormality. Report Dictated on --- Final --- Dictating Physician: MD ZAMUDIO KRIKOR Signed Date and Time: 03/17/2022 1:35 pm Signed by: MD ZAMUDIO KRIKOR Transcribed Date and Time: 03/17/2022 1:36 [facility] Work Phone: CT Head WO ContrastOrdered B y: Dann Zamudio on 03-17-2022 [facility] Work Phone: CT Head or Brain w/o Contras ton 03-17-2022 CT Head or Brain w/o Contrast Patient Name: JAC JIMENEZ Computed Tomography ACCESSION EXAM DATE/TIME PROCEDURE ORDERING PROVIDER [id number] 03/17/2022 13:[address] Head or Brain w/o JUSTYN MOORE DANIEL M Contrast CPT code 45346 Reason For Exam (CT Head or Brain w/o Contrast) weakness, falls Report Examination: CT head Technique: Axial CT images of the head were obtained without IV contrast at 5 mm intervals Indication: weakness, falls Findings: Pxzs-dv-pvkldhlc diffuse parenchymal volume loss is noted, evidence by prominence of the ventricles and sulci. There is at least moderate decreased attenuation is noted within the periventricular white matter, likely secondary to chronic small vessel ischemia. There is small amount of encephalomalacia along the left parietal lobe. The aleman-white differentiation is otherwise intact. There are no extra-axial fluid collections or acute intracranial hemorrhage appreciated. There is no midline shift identified. The bones and paranasal sinuses are grossly clear. The mastoid air cells are grossly unremarkable. Atherosclerotic calcification of the carotid siphons is noted. Impression: Likely chronic small vessel ischemic changes in the periventricular white matter. No acute intracranial abnormality. Report Dictated on Final Dictating Physician: MD ZAMUDIO KRIKOR Signed Date and Time: 03/17/2022 1:35 pm Signed by: MD ZAMUDIO KRIKOR Transcribed Date and Time: 03/17/2022 1:36 Normal [facility] CT LUMBAR SPINE WO CONTRASTo n 03-17-2022 Patient Name: JAC JIMENEZ Computed Tomography ACCESSION EXAM DATE/TIME PROCEDURE ORDERING PROVIDER [id number] 03/17/2022 13:[address] Spine Lumbar w/o JUSTYN MOORE DANIEL M Contrast CPT code 57923 Reason For Exam (CT Spine Lumbar w/o Contrast) Low back pain, right leg weakness Report Examination: CT lumbar spine Indication: Low back pain, right leg weakness Technique: Axial CT images of the lumbar spine were obtained at 1 mm intervals Sagittal and coronal reconstructions were reviewed as well. Findings: Grade 1 anterior listhesis is present at L5/S1 with bilateral pars interarticularis defects. There is marked disc space loss at this level with endplate sclerosis, osteophytes and vacuum phenomena. Vacuum phenomena is present throughout the lumbar spine. There is grade 1 retrolisthesis at L1/L2 and L2/L3. There is also grade 1 retrolisthesis at T12/L1. No acute fracture is noted. There is significant foraminal stenosis at L5/S1. Suspect at least moderate foraminal narrowing at L4/L5 and L3/L4. Diffuse posterior disc bulging present at L1/L2 and L2/L3 with at least bfft-cb-nikienyf foraminal narrowing at L2/L3. Extensive aortoiliac calcification is present. Impression: Advanced degenerative changes with multilevel spondylolisthesis. Bilateral pars interarticularis defects are present at L5/S1. Report Dictated on --- Final --- Dictating Physician: MD ZAMUDIO KRIKOR Signed Date and Time: 03/17/2022 1:33 pm Signed by: MD ZAMUDIO KRIKOR Transcribed Date and Time: 03/17/2022 1:34 [facility] Dann Zamudio MD - 03/17/2022 Patient Name: JAC JIMENEZ Computed Tomography ACCESSION EXAM DATE/TIME PROCEDURE ORDERING PROVIDER [id number] 03/17/2022 13:[address] Spine Lumbar w/o JUSTYN MOORE DANIEL M Contrast CPT code 82517 Reason For Exam (CT Spine Lumbar w/o Contrast) Low back pain, right leg weakness Report Examination: CT lumbar spine Indication: Low back pain, right leg weakness Technique: Axial CT images of the lumbar spine were obtained at 1 mm intervals Sagittal and coronal reconstructions were reviewed as well. Findings: Grade 1 anterior listhesis is present at L5/S1 with bilateral pars interarticularis defects. There is marked disc space loss at this level with endplate sclerosis, osteophytes and vacuum phenomena. Vacuum phenomena is present throughout the lumbar spine. There is grade 1 retrolisthesis at L1/L2 and L2/L3. There is also grade 1 retrolisthesis at T12/L1. No acute fracture is noted. There is significant foraminal stenosis at L5/S1. Suspect at least moderate foraminal narrowing at L4/L5 and L3/L4. Diffuse posterior disc bulging present at L1/L2 and L2/L3 with at least ucxa-kr-kygmyssv foraminal narrowing at L2/L3. Extensive aortoiliac calcification is present. Impression: Advanced degenerative changes with multilevel spondylolisthesis. Bilateral pars interarticularis defects are present at L5/S1. Report Dictated on --- Final --- Dictating Physician: MD ZAMUDIO KRIKOR Signed Date and Time: 03/17/2022 1:33 pm Signed by: MD ZAMUDIO KRIKOR Transcribed Date and Time: 03/17/2022 1:34 [facility] Work Phone: [facility] Work Phone: CT Spine Lumbar w/o Contrast on 03-17-2022 CT Spine Lumbar w/o Contrast Patient Name: JAC JIMENEZ Computed Tomography ACCESSION EXAM DATE/TIME PROCEDURE ORDERING PROVIDER [id number] 03/17/2022 13:[address] Spine Lumbar w/o OSCARJUSTYN LEONARDNILS Contrast CPT code 92591 Reason For Exam (CT Spine Lumbar w/o Contrast) Low back pain, right leg weakness Report Examination: CT lumbar spine Indication: Low back pain, right leg weakness Technique: Axial CT images of the lumbar spine were obtained at 1 mm intervals Sagittal and coronal reconstructions were reviewed as well. Findings: Grade 1 anterior listhesis is present at L5/S1 with bilateral pars interarticularis defects. There is marked disc space loss at this level with endplate sclerosis, osteophytes and vacuum phenomena. Vacuum phenomena is present throughout the lumbar spine. There is grade 1 retrolisthesis at L1/L2 and L2/L3. There is also grade 1 retrolisthesis at T12/L1. No acute fracture is noted. There is significant foraminal stenosis at L5/S1. Suspect at least moderate foraminal narrowing at L4/L5 and L3/L4. Diffuse posterior disc bulging present at L1/L2 and L2/L3 with at least lbuh-xs-lukpobxu foraminal narrowing at L2/L3. Extensive aortoiliac calcification is present. Impression: Advanced degenerative changes with multilevel spondylolisthesis. Bilateral pars interarticularis defects are present at L5/S1. Report Dictated on Final Dictating Physician: MD ZAMUDIO KRIKOR Signed Date and Time: 03/17/2022 1:33 pm Signed by: MD ZAMUDIO KRIKOR Transcribed Date and Time: 03/17/2022 1:34 Normal [facility] Comp Metabolic Panelon 03-17 ALP [Catalytic activity/Vol] 55 U/L Normal 38-126 [facility] Comment on above: Performed By: #### H BETHANY NATHAN CMP3 #### [facility] [address] [place] [address] ALT [Catalytic activity/Vol] 10 U/L Normal 0-49 [facility] Comment on above: Result Comment: The ALT test is performed by an updated assay method. Please note that the reference intervals have been changed and are now sex specific. Performed By: #### H EMDF, TROPN, CMP3 #### [facility] [address] [place] [address] Anion gap [Moles/Vol] 5 mmol/L Normal 3-13 [facility] Comment on above: Performed By: #### H EMDF, TROPN, CMP3 #### [facility] [address] [place] [address] AST [Catalytic activity/Vol] 16 U/L Normal 15-46 [facility] Comment on above: Performed By: #### H EMDF, TROPN, CMP3 #### [facility] [address] [place] [address] Bilirubin [Mass/Vol] 1.4 mg/dL High 0.2-1.3 [facility] Comment on above: Performed By: #### H EMDF, TROPN, CMP3 #### [facility] [address] [place] [address] Calcium [Mass/Vol] 8.7 mg/dL Normal 8.4-10.4 [facility] Comment on above: Performed By: #### H EMDF, TROPN, CMP3 #### [facility] [address] [place] [address] CO2 [Moles/Vol] 25 mmol/L Normal 22-30 [facility] Comment on above: Performed By: #### H EMDF, TROPN, CMP3 #### [facility] [address] [place] [address] Glucose [Mass/Vol] 95 mg/dL Normal 70-100 [facility] Comment on above: Performed By: #### H EMDF, TROPN, CMP3 #### [facility] [address] [place] [address] Protein [Mass/Vol] 6.3 g/dL Normal 6.3-8.2 [facility] Comment on above: Performed By: #### H EMDF, TROPN, CMP3 #### [facility] [address] [place] [address] Urea nitrogen [Mass/Vol] 12 mg/dL Normal 7-17 [facility] Comment on above: Performed By: #### H EMDF, TROPN, CMP3 #### [facility] [address] [place] [address] Creatinine [Mass/Vol] 1.10 mg/dL Normal 0.52-1.25 [facility] Comment on above: Performed By: #### H BETHANY NATHAN CMP3 #### [facility] [address] [place] [address] GFR/1.73 sq M.predicted among blacks MDRD (S/P/Bld) [Vol rate/Area] 75.3 mL/min/{1.73_m2} Normal >60 [facility] Comment on above: Performed By: #### H BETHANY NATHAN CMP3 #### [facility] [address] [place] [address] GFR/1.73 sq M.predicted among non-blacks MDRD (S/P/Bld) [Vol rate/Area] 65.0 mL/min/{1.73_m2} Normal >60 [facility] Comment on above: Result Comment: KDIG O guidelines provide the following GFR categories: Stage GFR(ml/min/1.73 m2) Terms G1 >=90 Normal or high G2 60-89 Mildly decreased* G3a 45-59 Mildly to moderately decreased G3b 30-44 Moderately to severely decreased G4 15-29 Severely decreased G5 <15 Kidney failure *Relative to young adult level. In the absence of evidence of kidney damage, neither GFR category G1 nor G2 fulfill the criteria for CKD. The CKD-EPI equation is validated in individuals 18 years of age and older. Currently the best equation for estimating glomerular filtration rate (GFR) from serum creatinine in children is the Bedside Bolanos equation. It is less accurate in patients with extremes of muscle mass, restriction of dietary protein, ingestion of creatine, extra-renal metabolism of creatinine, or treatment with medications that affect renal tubular creatinine secretion. Performed By: #### H BETHANY NATHAN CMP3 #### [facility] [address] [place] [address] Potassium [Moles/Vol] 4.2 mmol/L Normal 3.5-5.1 [facility] Comment on above: Performed By: #### H BETHANY NATHAN CMP3 #### [facility] [address] [place] [address] Sodium [Moles/Vol] 140 mmol/L Normal 135-145 [facility] Comment on above: Performed By: #### H BETHANY NATHAN CMP3 #### [facility] [address] [place] [address] Albumin [Mass/Vol] 3.8 g/dL Normal 3.5-5.0 [facility] Comment on above: Performed By: #### H BETHANY NATHAN CMP3 #### [facility] [address] [place] [address] Chloride [Moles/Vol] 111 mmol/L High 98-107 [facility] Comment on above: Performed By: #### H BETHANY NATHAN CMP3 #### [facility] [address] [place] [address] Comprehensive Metabolic Pane samy 03-17-2022 Albumin [Mass/Vol] 3.8 g/dL 3.5 - 5 g/dL [facility] ALP (Bld) [Catalytic activity/Vol] 55 U/L 38 - 126 U/L [facility] ALT [Catalytic activity/Vol] 10 U/L 0 - 49 U/L [facility] Comment on above: The ALT test is perf ormed by an updated assay method. Please note that the reference intervals have been changed and are now sex specific. Anion gap [Moles/Vol] 5 mmol/L 3 - 13 mmol/L [facility] AST [Catalytic activity/Vol] 16 U/L 15 - 46 U/L [facility] Bilirubin [Mass/Vol] 1.4 mg/dL High 0.2 - 1 .3 mg/dL [facility] Calcium [Mass/Vol] 8.7 mg/dL 8.4 - 10. 4 mg/dL [facility] Chloride [Moles/Vol] 111 mmol/L High 98 - 10 7 mmol/L [facility] CO2 [Moles/Vol] 25 mmol/L 22 - 30 mmol/L [facility] Creatinine [Mass/Vol] 1.1 mg/dL 0.52 - 1.25 mg/dL [facility] EGFR IF NonAfrican Polish 65.0 mL/min 60 - PINF mL/min [facility] Comment on above: KDIGO guidelines pro vide the following GFR categories: Stage GFR(ml/min/1.73 m2) Terms G1 >=90 Normal or high G2 60-89 Mildly decreased* G3a 45-59 Mildly to moderately decreased G3b 30-44 Moderately to severely decreased G4 15-29 Severely decreased G5 <15 Kidney failure *Relative to young adult level. In the absence of evidence of kidney damage, neither GFR category G1 nor G2 fulfill the criteria for CKD. The CKD-EPI equation is validated in individuals 18 years of age and older. Currently the best equation for estimating glomerular filtration rate (GFR) from serum creatinine in children is the Bedside Bolanos equation. It is less accurate in patients with extremes of muscle mass, restriction of dietary protein, ingestion of creatine, extra-renal metabolism of creatinine, or treatment with medications that affect renal tubular creatinine secretion. Free PSA/Total PSA [Mass fraction] 6.3 g/dL 6.3 - 8.2 g/dL [facility] GFR/1.73 sq M.predicted among blacks MDRD (S/P/Bld) [Vol rate/Area] 75.3 mL/min/{1.73_m2} 60 - PINF mL/min [facility] Glucose [Mass/Vol] 95 mg/dL 70 - 100 mg/dL [facility] Potassium [Moles/Vol] 4.2 mmol/L 3.5 - 5.1 mmol/L [facility] Sodium [Moles/Vol] 140 mmol/L 135 - 145 mmol/L [facility] Urea nitrogen (BldV) [Mass/Vol] 12 mg/dL 7 - 17 mg/dL [facility] ED Provider Noteon 2 ED Provider Note I, Ant Islas MD, am the primary physician of record. I independently evaluated and examined the patient. Patient seen in conjunction with nurse practitioner or physician assistant auto center manager or resident physician. Appropriate PPE including n 95, gown, gloves, goggles where worn when appropriate with this patient. I personally saw the patient and performed a substantive portion of the visit including all aspects of medical decision making. Patient presents with weakness of right leg. Over a month. Given prednisone and Cymbalta. Not helping. He supposed to go to [facility] where his is residing he is having problems caring for himself. There is no physical findings of weakness. Neurologically is intact no focal deficit. Heart S1-S2 appreciated. Lungs clear. We will check blood work. We will get PT OT involvement. We will attempt placement given that he is not doing well at home as above. Further details please see midlevel note. Comment: Please note this report has been produced using speech recognition software and may contain errors related to that system including errors in grammar, punctuation, and spelling, as well as words and phrases that may be inappropriate. If there is any questions or concerns please feel free to contact the dictating provider for clarification. Ant Islas MD 03/17/22 1507 [facility] ED Provider Note [facility] ED eMERGENCY dEPARTMENT eNCOUnter Pt Name: Jac Jimenez Birthdate 1945 Date of evaluation: 03/17/2022 Provider: Nils Moore APRN - JUSTYN This patient was seen in conjunction with Dr. Islas CHIEF COMPLAINT No chief complaint on file. HISTORY OF PRESENT ILLNESS (Location/Symptom, Timing/Onset,Context /Setting, Quality, Duration, Modifying Factors, Severity) Note limiting factors. HPI Jac Jimenez is a 76 y.o. male who presents to the emergency department with right leg weakness. The patient states he is having right leg weakness this been going on for over a month. States he saw his PCP was given prednisone and Cymbalta. In 3 days he supposed to go to [facility] where his is currently residing because he is having trouble caring for himself and falling frequently. Complains of some low back pain. Denies bowel or bladder incontinence or saddle anesthesia. Denies fevers or chills. Nursing Notes were reviewed. REVIEW OF SYSTEMS (2+ for4; 10+ for level 5) Review of Systems Constitutional: Positive for fatigue. Negative for activity change, appetite change, chills and fever. HENT: Negative for congestion, ear discharge, ear pain, hearing loss, postnasal drip, rhinorrhea and sore throat. Eyes: Negative for discharge and redness. Respiratory: Negative for chest tightness, shortness of breath and wheezing. Cardiovascular: Negative for chest pain and palpitations. Gastrointestinal: Negative for abdominal pain, diarrhea, nausea and vomiting. Genitourinary: Negative for dysuria, frequency and genital sores. Musculoskeletal: Positive for arthralgias, back pain and myalgias. Skin: Negative for color change. Neurological: Positive for weakness. Negative for dizziness, tremors, seizures, syncope, speech difficulty, light-headedness and headaches. Psychiatric/Behavior al: Negative for confusion. All other systems reviewed and are negative. PAST MEDICAL HISTORY Past Medical History: Diagnosis Date Arthritis Carpal tunnel syndrome SCHEDULED FOR THE SURGERY ON 02/10/21 AT [facility] Cubital tunnel syndrome, bilateral SCHEDULED FOR THE RIGHT SIDE SURGERY [facility] Current every day smoker GERD (gastroesophageal reflux disease) High cholesterol SURGICALHISTORY Past Surgical History: Procedure Laterality Date BACK SURGERY 10 years ago MICRODISECTOMY AT [facility] CARPAL TUNNEL RELEASE Right 02/10/2021 Right Carpal tunnel decompression with flexor tenosynovectomy, Guyon's tunnel decompression, and Cubital tunnel decompression with subcutaneous transposition COLONOSCOPY ENDOSCOPY, COLON, DIAGNOSTIC WISDOM TOOTH EXTRACTION CURRENT MEDICATIONS Previous Medications ATORVASTATIN (LIPITOR) 20 MG TABLET TAKE 1 TABLET BY MOUTH EVERYDAY AT BEDTIME FLUTICASONE (FLONASE) 50 MCG/ACT NASAL SPRAY INSTILL 1 TO 2 SPRAYS IN EACH NOSTRIL ONCE A DAY OMEPRAZOLE (PRILOSEC) 20 MG DELAYED RELEASE CAPSULE TAKE 1 CAPSULE BY MOUTH EVERY OTHER DAY NEEDED FOR 90 DAYS Hydrocodone, Darvon [propoxyphene], and Percocet [oxycodone-acetamino phen] FAMILY HISTORY History reviewed. No pertinent family history. SOCIAL HISTORY Social History Socioeconomic History Marital status: Spouse name: None Number of children: None Years of education: None Highest education level: None Tobacco Use Smoking status: Every Day Packs/day: 0.50 Types: Cigarettes Smokeless tobacco: Never Tobacco comments: last smoked [id number] Vaping Use Vaping Use: Never used Substance and Sexual Activity Alcohol use: Never Drug use: Never Sexual activity: Not Currently SCREENINGS PHYSICAL EXAM (5+ for level 4, 8+ for level 5) ED Triage Vitals [03/17/22 1207] BP Temp Temp Source Heart Rate Resp SpO2 Height Weight 123/81 97.7 ?F (36.5 ?C) Oral 83 20 98 % -- 190 lb (86.2 kg) Physical Exam Vitals and nursing note reviewed. Constitutional: General: He is not in acute distress. Appearance: Normal appearance. He is normal weight. He is not ill-appearing or toxic-appearing. HENT: Head: Normocephalic and atraumatic. Right Ear: External ear normal. Left Ear: External ear normal. Mouth/Throat: Mouth: Mucous membranes are moist. Pharynx: Oropharynx is clear. Eyes: Extraocular Movements: Extraocular movements intact. Conjunctiva/sclera: Conjunctivae normal. Pupils: Pupils are equal, round, and reactive to light. Cardiovascular: Rate and Rhythm: Normal rate and regular rhythm. Pulses: Normal pulses. Heart sounds: Normal heart sounds. No murmur heard. Pulmonary: Effort: Pulmonary effort is normal. No respiratory distress. Breath sounds: Normal breath sounds. No stridor. No wheezing or rhonchi. Musculoskeletal: Cervical back: Normal range of motion and neck supple. No rigidity or tenderness. Comments: There is mild pain on palpation to the lumbar spine. Straight leg (more content not included)... 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 : 1945 Requested By: NILS MOORE Order Number: [id number] Reading : Ant Islas Measurements Intervals [place] Rate: 66 P: 18 PA: 152 QRS: -27 QRSD: 104 T: -22 QT: 420 QTc: 441 Interpretive Statements SINUS RHYTHM LEFT VENTRICULAR HYPERTROPHY ABNORMAL T, CONSIDER ISCHEMIA, INFERIOR LEADS BASELINE WANDER IN LEAD(S) V5 Compared to ECG 02/03/2021 09:32:14 Left ventricular hypertrophy now present T-wave abnormality still present Electronically Signed On 03-17-2022 12:50:03 EDT by Ant Islas [facility] Ant Islas MD - 03/17/2022 [facility] Test Date: 2022-03-17 Pat Name: JAC POWERLAR Department: 2AED Room: 31 Gender: M Telephony Engineer: RE : 1945 Requested By: NILS MOORE Order Number: [id number] Reading EMPERATRIZ Islas Measurements Intervals [place] Rate: 66 P: 18 PA: 152 QRS: -27 QRSD: 104 T: -22 QT: 420 QTc: 441 Interpretive Statements SINUS RHYTHM LEFT VENTRICULAR HYPERTROPHY ABNORMAL T, CONSIDER ISCHEMIA, INFERIOR LEADS BASELINE WANDER IN LEAD(S) V5 Compared to ECG 02/03/2021 09:32:14 Left ventricular hypertrophy now present T-wave abnormality still present Electronically Signed On 03-17-2022 12:50:03 EDT by Ant Islas [employer] Work Phone: EKG 12 Lead - Chest PainOrde red By: Ant Islas on 03-17-2022 [employer] Work Phone: Hemogram w/ [employer] 03-17 Abs Baso Cnt 0.1 10*3/uL Normal 0.0-0.2 [facility] Comment on above: Performed By: #### H EMDF TROPN, CMP3 #### [employer] 1,2,[address] [facility] [address] [place] [address] Abs Neutrophile Cnt 6.0 10*3/uL Normal 1.8-7.0 [facility] 1,2,3 [employer] Comment on above: Performed By: #### H EMDF TROPN, CMP3 #### [facility] [address] [place] [address] Basophils/100 WBC (Bld) 1.0 % Normal 0.0-2.0 [facility] Comment on above: Performed By: #### H EMDF TROPN, CMP3 #### [facility] [address] [place] [address] Eosinophils (Bld) [#/Vol] 0.1 10*3/uL Normal 0.0-0.5 [facility] Comment on above: Performed By: #### H EMDF, TROPN, CMP3 #### [facility] [address] [place] [address] Eosinophils/100 WBC (Bld) 1.0 % Normal 1.0-6.0 [facility] Comment on above: Performed By: #### H EMDF, TROPN, CMP3 #### [facility] [address] [place] [address] Erythrocyte distribution width (RBC) [Ratio] 15.8 % High 11.5-14.5 [facility] Comment on above: Performed By: #### H EMDF, TROPN, CMP3 #### [facility] [address] [place] [address] Granulocytes/100 WBC (Bld) 77.0 % Normal 40.0-80.0 [facility] Comment on above: Performed By: #### H EMDBETHANY Chung, CMP3 #### [facility] [address] [place] [address] Hematocrit (Bld) [Volume fraction] 41.6 % Normal 40.0-52.0 [facility] Comment on above: Performed By: #### H EMDGE ChungN, CMP3 #### [facility] [address] [place] [address] Hemoglobin (Bld) [Mass/Vol] 14.1 g/dL Normal 13.0-18.0 [facility] Comment on above: Performed By: #### H EMDGE ChungN, CMP3 #### [place] [address] [place] [address] Lymphocytes (Bld) [#/Vol] 1.1 10*3/uL Normal 1.0-4.3 [facility] Comment on above: Performed By: #### H EMDGE ChungN, CMP3 #### [facility] [address] [place] [address] Lymphocytes/100 WBC (Bld) 14.6 % Low 20.0-40.0 [facility] Comment on above: Performed By: #### H EMDFGEN, CMP3 #### [facility] [address] [place] [address] MCH (RBC) [Entitic mass] 30.7 pg Normal 26.0-34.0 [facility] Comment on above: Performed By: #### H EMDF, TROPN, CMP3 #### [facility] [address] [place] [address] MCHC 34.0 % Normal 32.0-36.0 [facility] Comment on above: Performed By: #### H EMDF, TROPN, CMP3 #### [facility] [address] [place] [address] MCV (RBC) [Entitic vol] 90.2 fL Normal 80.0-98.0 [facility] Comment on above: Performed By: #### H EMDFGEN, CMP3 #### [facility] [address] [place] [address] Monocytes (Bld) [#/Vol] 0.5 10*3/uL Normal 0.0-0.8 [facility] Comment on above: Performed By: #### BETHANY HYMAN CMP3 #### [facility] [address] [place] [address] Monocytes/100 WBC (Bld) 6.4 % Normal 2.0-10.0 [facility] Comment on above: Performed By: #### BETHANY HYMAN CMP3 #### [facility] [address] [place] [address] Platelet mean volume (Bld) [Entitic vol] 8.0 fL Normal 7.4-12.4 [facility] Comment on above: MPV is a calculated measurement using platelet volume ratio. Result Comment: MPV is a calculated measurement using platelet volume ratio. Performed By: #### BETHANY HYMAN CMP3 #### [place] [address] [place] [address] Platelets (Bld) [#/Vol] 162 10*3/uL Normal 140-440 [facility] Comment on above: Performed By: #### BETHANY HYMAN CMP3 #### [facility] [address] [place] [address] RBC (Bld) [#/Vol] 4.61 10*6/uL Normal 4.40-5.90 [facility] Comment on above: Performed By: #### BETHANY HYMAN CMP3 #### [facility] [address] [place] [address] WBC (Bld) [#/Vol] 7.8 10*3/uL Normal 3.6-10.7 [facility] Comment on above: Performed By: #### BETHANY HYMAN CMP3 #### [facility] [address] [place] [address] No Panel Informationon 03-17 Interpretation and review of laboratory results Abnormal [facility] Test Performed by [facility], [facility] [address] [place] [address] [facility] LAB [facility] Radiology Study observation (narrative) [facility] Work Phone: SARS-CoV-2, Flu A/B and RSVo n 03-17-2022 SARS-CoV-2 (COVID-19) RNA VERENICE+probe Ql (Unsp spec) SARS-CoV-2 --> Status: F Not Detected. Flu A PCR --> Status: F Not Detected. Flu B PCR --> Status: F Not Detected. RSV PCR --> Status: F Not Detected. Expected Result: Not Detected _ Method: Real-time, RT-PCR This assay was developed by [employer] and distributed under an Emergency Use Authorization (EUA) granted by the FDA for the qualitative detection of nucleic acids from SARS-CoV-2, Influenza A, Influenza B, and Respiratory Syncytial Virus. Provider and patient fact sheets can be found at https://www.fda.gov/ media/424154/downloa d and https://www.fda.gov/ media/655239/downloa d. Expected Result: Not Detected _ Method: Real-time, RT-PCR This assay was developed by [employer] and distributed under an Emergency Use Authorization (EUA) granted by the FDA for the qualitative detection of nucleic acids from SARS-CoV-2, Influenza A, Influenza B, and Respiratory Syncytial Virus. Provider and patient fact sheets can be found at https://www.fda.gov/ media/080985/downloa d and https://www.fda.gov/ media/324554/downloa d. Normal [facility] Comment on above: Performed By: #### C VFLR #### [facility] [address] [place] [address] , [address] Troponin Ion 03-17-2022 Troponin I.cardiac [Mass/Vol] ng/mL Normal 0.000-0.034 [facility] Comment on above: Result Comment: . Performed By: #### H EMDF, TROPN, CMP3 #### [facility] [address] [place] [address] Troponin x1on 03-17-2022 Troponin I.cardiac [Mass/Vol] ng/mL 0 - 0.034 ng/mL [facility] Comment on above: . Test Performed by [facility], [address], [place], [place] [id number] [place] [address] LAB [facility] CBCOrdered By: Alonzo cervantes 02-03-2021 Hematocrit (Bld) [Volume fraction] 41.8 % 40.0 - 52.0 % [facility] Work Phone: Hemoglobin.gastrointest inal spec 1 Ql (Stl) 13.9 g/dL 13.0 - 18.0 g/dL [facility] Work Phone: Interpretation and review of laboratory results Abnormal [facility] Work Phone: MCH (RBC) [Entitic mass] 30.4 pg 26.0 - 34.0 pg [facility] Work Phone: MCHC (RBC) [Mass/Vol] 33.3 % 32.0 - 36.0 % [facility] Work Phone: MCV (RBC) [Entitic vol] 91.4 fL 80.0 - 98.0 fL [facility] Work Phone: Platelet distribution width (Bld) [Ratio] 15.8 % High 11.5 - 14.5 % [facility] Work Phone: Platelet mean volume (Bld) [Entitic vol] 7.5 fL 7.4 - 10.4 fL [facility] Work Phone: Platelets (Bld) [#/Vol] 188 10*3/uL 140 - 440 10*3/uL [facility] Work Phone: RBC (Bld) [#/Vol] 4.57 10*6/uL 4.40 - 5.9 0 10*6/uL [facility] Work Phone: WBC (Bld) [#/Vol] 6.3 10*3/uL 3.6 - 10.7 10*3/uL [facility] Work Phone: [facility], [address] [place], [place] [address] [facility] Work Phone: [facility] Work Phone: Comprehensive Metabolic Pane lOrdered By: Alonzo Zheng on 02-03-2021 Albumin [Mass/Vol] 4.0 g/dL 3.5 - 5.0 g/dL [facility] Work Phone: ALP (Bld) [Catalytic activity/Vol] 66 U/L 38 - 126 U/L [facility] Work Phone: ALT [Catalytic activity/Vol] 12 U/L 0 - 49 U/L [facility] Work Phone: Comment on above: The ALT test is perf ormed by an updated assay method. Please note that the reference intervals have been changed and are now sex specific. Anion gap [Moles/Vol] 4 mmol/L 3 - 13 mmol/L [facility] Work Phone: AST [Catalytic activity/Vol] 18 U/L 15 - 46 U/L [facility] Work Phone: Bilirubin [Mass/Vol] 0.7 mg/dL 0.2 - 1 .3 mg/dL [facility] Work Phone: Calcium [Mass/Vol] 9.3 mg/dL 8.4 - 10. 4 mg/dL [facility] Work Phone: Chloride [Moles/Vol] 109 mmol/L High 98 - 10 7 mmol/L [facility] Work Phone: CO2 [Moles/Vol] 25 mmol/L 22 - 30 mmol/L [facility] Work Phone: Creatinine [Mass/Vol] 0.97 mg/dL 0.52 - 1.25 mg/dL [facility] Work Phone: EGFR IF NonAfrican Polish 76.2 mL/min >60 [facility] Work Phone: Comment on above: KDIGO guidelines pro vide the following GFR categories: Stage GFR(ml/min/1.73 m2) Terms G1 >=90 Normal or high G2 60-89 Mildly decreased* G3a 45-59 Mildly to moderately decreased G3b 30-44 Moderately to severely decreased G4 15-29 Severely decreased G5 <15 Kidney failure *Relative to young adult level. In the absence of evidence of kidney damage, neither GFR category G1 nor G2 fulfill the criteria for CKD. The CKD-EPI equation is validated in individuals 18 years of age and older. Currently the best equation for estimating glomerular filtration rate (GFR) from serum creatinine in children is the Bedside Bolanos equation. It is less accurate in patients with extremes of muscle mass, restriction of dietary protein, ingestion of creatine, extra-renal metabolism of creatinine, or treatment with medications that affect renal tubular creatinine secretion. Free PSA/Total PSA [Mass fraction] 6.6 g/dL 6.3 - 8.2 g/dL [facility] Work Phone: GFR/1.73 sq M.predicted among blacks MDRD (S/P/Bld) [Vol rate/Area] 88.3 mL/min/{1.73_m2} >60 [facility] Work Phone: Glucose [Mass/Vol] 98 mg/dL 70 - 100 mg/dL [facility] Work Phone: Interpretation and review of laboratory results Abnormal [facility] Work Phone: Potassium [Moles/Vol] 4.5 mmol/L 3.5 - 5.1 mmol/L [facility] Work Phone: Sodium [Moles/Vol] 138 mmol/L 135 - 145 mmol/L [facility] Work Phone: Urea nitrogen (BldV) [Mass/Vol] 11 mg/dL 7 - 20 mg/dL [facility] Work Phone: Test Performed by [employer] [facility], [address] [place] [id number] [place], [place] [address]A Work Phone: [facility] Work Phone: EMG REPORTon 11-28-2020 Josh Sanz MD - 11/28/2020 3:19 PM EDT PATIENT: JAC JIMENEZ DATE OF SERVICE: 11/28/2020 ORDER NUMBER: DATE OF : 1945 AGE: 75 ADMITTING PHYSICIAN: Eric Mcdermott DO ATTENDING PHYSICIAN: Eric Mcdermott DO DICTATING PHYSICIAN: Josh Sanz MD EMG REFERRING PHYSICIAN: Eric Mcdermott D.O. TEST #: [id number] and [id number] NERVE CONDUCTION STUDIES AND ELECTROMYOGRAPHY OF BOTH UPPER EXTREMITIES LOCATION: Testing was conducted at [facility] as an outpatient. FINDINGS: Sensory nerve conduction studies disclosed a prolonged latency in the left median nerve; the response amplitude was normal. Response latencies and amplitudes were normal in the ulnar and radial nerves bilaterally, as well as the right median nerve. However, the response latencies in the ulnar nerves were somewhat greater than in the right median nerve, particularly on the left. With palmar stimulation, the left median and bilateral ulnar latencies were prolonged; the right median palmar latency was within normal limits. Motor nerve conduction studies disclosed a prolonged distal latency and slightly slow conduction velocity in the left ulnar nerve; the response amplitude was normal. Distal latencies, response amplitudes and conduction velocities were normal in the median nerves bilaterally and in the right ulnar nerve. F-waves were normal in the median and ulnar nerves bilaterally, although the left ulnar F-wave was slightly prolonged in latency compared to the other 3 nerves. Needle EMG examination disclosed normal spontaneous activity in the biceps, deltoid, triceps, pronator teres, flexor carpi radialis and ulnaris, extensor indicis proprius, first dorsal interosseous and abductor pollicis brevis bilaterally, as well as the right abductor digiti minimi. There was reduced activation of voluntary motor unit potentials in the right first dorsal interosseous and abductor digiti minimi; in the latter muscle, there was also slightly reduced recruitment, while in the FDI there was no acceleration of firing rate of motor unit potentials. Recruitment was slightly decreased in the left biceps. Recruitment was normal in all other muscles examined. There were enlarged motor unit potentials in the right abductor digiti minimi and the left biceps, and otherwise morphology of motor unit potentials was normal. INTERPRETATION: Nerve conduction studies and electromyography of the upper limbs disclosed evidence of multiple abnormalities. 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 The nerve conduction studies indicated greater deficits in the left ulnar nerve, but needle EMG examination showed mild chronic denervation only on the right; this corresponded to the clinical observation of atrophy of right, but not left intrinsic hand muscles. Electrically, the ulnar neuropathies at or distal to the wrist would be classified as moderately severe on the right and mild on the left. There was also evidence of a left median neuropathy at or distal to the wrist (carpal tunnel syndrome), mild in degree electrically. There was also evidence of mild chronic denervation in the left biceps, corresponding to the patient's history of a "torn muscle" in that region. Clinical correlation is advised. Gabi Job ID: [id number] DOD:11/28/2020 01:42 P MERARI/dg DOT:11/28/2020 03:19 P Job Number: [id number] Document Number: [id number] ###### cc: Eric Mcdermott, DO [address] Work Phone: VL ARTERIAL PVR LOWER WO EXE RCISEon 05-03-2020 [facility] Multilevel Lower Extremity Arterial Evaluation Report Ordering Physician: Desi Cortez Supportive Employment Case Manager: Lazaro Hatfield Interpreting Physician: Miguel Simmons MD Location: [facility] Indications: PVD. Conclusions 1. Right resting JOANNA is 0.98. This is within the normal range. 2. Left resting JOANNA is 0.91. This is within the normal range. 3. There appears to be a abnormal toe index involving the right great toe. 4. There appears to be a normal toe index involving the left great toe. 5. PVR waveforms of the right leg appear normal at rest. 6. PVR waveforms of the left leg appear normal at rest. History: Risk factors: Current tobacco use. Hyperlipidemia. Age over 65 years. Study data: Lower extremity multilevel physiologic evaluation. Pressure measurement and pulse volume recording. Location: Vascular laboratory. Objective: Diagnostic evaluation. Procedure: A vascular evaluation was performed with the patient in the supine position. Images were obtained using a [employer] vascular ultrasound machine. Arterial pressure indices: + +------- ---------+ --+ +Location +Pressure (REST)*+Index (REST)+ + +------- ---------+ --+ +R brachial +140 + + + +------- ---------+ --+ +R DP +137 +0.98 + + +------- ---------+ --+ +R PT +127 +0.91 + + +------- ---------+ --+ +R great toe+102 +0.73 + + +------- ---------+ --+ +L brachial +134 + + + +------- ---------+ --+ +L DP +102 +0.73 + + +------- ---------+ --+ +L PT +128 +0.91 + + +------- ---------+ --+ +L great toe+119 +0.85 + + +------- ---------+ --+ Prepared and electronically signed by Miguel Simmons MD 05/03/2020 10:02 [facility] [place], [place] Carlos Manuel [facility] Incoming Cardiology Results From Shanice/Alfredo - 05/03/2020 10:02 AM EDT [facility] Multilevel Lower Extremity Arterial Evaluation Report Ordering Physician: Desi Cortez Supportive Employment Case Manager: Lazaro Hatfield Interpreting Physician: Miguel Simmons MD Location: [facility] Indications: PVD. Conclusions 1. Right resting JOANNA is 0.98. This is within the normal range. 2. Left resting JOANNA is 0.91. This is within the normal range. 3. There appears to be a abnormal toe index involving the right great toe. 4. There appears to be a normal toe index involving the left great toe. 5. PVR waveforms of the right leg appear normal at rest. 6. PVR waveforms of the left leg appear normal at rest. History: Risk factors: Current tobacco use. Hyperlipidemia. Age over 65 years. Study data: Lower extremity multilevel physiologic evaluation. Pressure measurement and pulse volume recording. Location: Vascular laboratory. Objective: Diagnostic evaluation. Procedure: A vascular evaluation was performed with the patient in the supine position. Images were obtained using a [employer] vascular ultrasound machine. Arterial pressure indices: + +------- ---------+ --+ +Location +Pressure (REST)*+Index (REST)+ + +------- ---------+ --+ +R brachial +140 + + + +------- ---------+ --+ +R DP +137 +0.98 + + +------- ---------+ --+ +R PT +127 +0.91 + + +------- ---------+ --+ +R great toe+102 +0.73 + + +------- ---------+ --+ +L brachial +134 + + + +------- ---------+ --+ +L DP +102 +0.73 + + +------- ---------+ --+ +L PT +128 +0.91 + + +------- ---------+ --+ +L great toe+119 +0.85 + + +------- ---------+ --+ Prepared and electronically signed by Miguel Simmons MD 05/03/2020 10:02 [place], [place] [facility] Letter Jagruti Cruz MD[address] [place], [place] [address]Sgmve: [phone]: [phone]: 01/09/2018Provider: HELEN Aguirreatient Name: Jac PeñaJonnieOB: 1945Mitul Muhammad, OUTSIDE SALES REPRESENTATIVE INSURANCE,Thank you for referring Jac for a Screening Colonoscopy. We have checkedthe patient's records and they are not due for a Screening Colonoscopy atthis time. They will be due around 06/08/2021, unless they have a familyhistory of colon cancer.If this patient has symptoms before that time, one of our physicians can seethem in our office. Please send a referral stating they have symptoms at thattime.Thank you for your time concerning this matter.Sincerely,Hector Cruz MD Normal [facility] Vital Signs Date Time Vital Sign Value Performing Clinician Faci lity 03-17-2022 20:32-0400 Diastolic blood pressure 73 mm[Hg] Ant Islas MD Work Phone: [facility] 03-17-2022 20:32-0400 Heart rate 80 /min Ant Islas MD Work Phone: [facility] 03-17-2022 20:32-0400 SaO2% (BldA) [Mass fraction] 100 % Ant Islas MD Work Phone: [facility] 03-17-2022 20:32-0400 Systolic blood pressure 122 mm[Hg] Ant Islas MD Work Phone: [facility] 03-17-2022 12:07-0400 Body mass index (BMI) [Ratio] 26.5 kg/m2 Ant Islas MD Work Phone: [facility] 03-17-2022 12:07-0400 Body temperature 97.7 [degF] Ant Islas MD Work Phone: [facility] 03-17-2022 12:07-0400 Body weight 86.18 kg Ant Islas MD Work Phone: [facility] 03-17-2022 12:07-0400 Respiratory rate 20 /min Ant Islas MD Work Phone: [facility] 02-10-2021 11:45-0400 Diastolic blood pressure 70 mm[Hg] Alonzo Zheng MD Work Phone: [facility] Work Phone: 02-10-2021 11:45-0400 Heart rate 72 /min Alonzo Zheng MD Work Phone: [facility] Work Phone: 02-10-2021 11:45-0400 Respiratory rate 21 /min Alonzo Zheng MD Work Phone: [facility] Work Phone: 02-10-2021 11:45-0400 SaO2% (BldA) [Mass fraction] 97 % Alonzo Zheng MD Work Phone: [facility] Work Phone: 02-10-2021 11:45-0400 Systolic blood pressure 111 mm[Hg] Alonzo Zheng MD Work Phone: [facility] Work Phone: 02-10-2021 11:21-0400 Body temperature 97.39 [degF] Alonzo Zheng MD Work Phone: [facility] Work Phone: 02-10-2021 08:16-0400 Body height 175.3 cm Alonzo Zheng MD Work Phone: [facility] Work Phone: 02-10-2021 08:16-0400 Body mass index (BMI) [Ratio] 29.14 kg/m2 Alonzo Zheng MD Work Phone: [employer] Work Phone: 02-10-2021 08:16-0400 Body weight 89.5 kg Alonzo Zheng MD Work Phone: [facility] Work Phone: 02-03-2021 09:27-0400 Body height 175.3 cm Alonzo Zheng MD Work Phone: [facility] Work Phone: 02-03-2021 09:27-0400 Body mass index (BMI) [Ratio] 30.29 kg/m2 Alonzo Zheng MD Work Phone: [facility] Work Phone: 02-03-2021 09:27-0400 Body weight 93.04 kg Alonzo Zheng MD Work Phone: [facility] Work Phone: 02-03-2021 09:25-0400 Body temperature 98.1 [degF] Alonzo Zheng MD Work Phone: [facility] Work Phone: 02-03-2021 09:25-0400 Diastolic blood pressure 83 mm[Hg] Alonzo Zheng MD Work Phone: [facility] Work Phone: 02-03-2021 09:25-0400 Heart rate 66 /min Alonzo Zheng MD Work Phone: [facility] Work Phone: 02-03-2021 09:25-0400 Respiratory rate 16 /min Alonzo Zheng MD Work Phone: [facility] Work Phone: 02-03-2021 09:25-0400 SaO2% (BldA) [Mass fraction] 99 % Alonzo Zheng MD Work Phone: [facility] Work Phone: 02-03-2021 09:25-0400 Systolic blood pressure 154 mm[Hg] Alonzo Zheng MD Work Phone: [employer] Work Phone: Encounters Encounter Date Encounter Type Care Provider Facility Start: 01-28-2025 ambulatory Barrett MADRIGAL Facil ity:[facility] Start: 12-03-2024 End: 12-03-2024 ambulatory Barrett MADRIGAL [facility] Work Phone: Start: 12-03-2024 End: 12-03-2024 Departed Referred Barrett Razo -[facility] [address] Start: 12-03-2024 End: 12-03-2024 ambulatory Barrett MADRIGAL Facility:[facility] Start: 11-28-2024 End: 11-28-2024 Departed Referred Barrett Razo -[facility] [place] [address] Start: 11-28-2024 End: 11-28-2024 ambulatory Barrett MADRIGAL Facility:[facility] Start: 07-30-2024 End: 07-30-2024 ambulatory Barrett MADRIGAL Facility:[facility] Start: 03-29-2024 End: 03-29-2024 ambulatory Barrett MADRIGAL Facility:[facility] Start: 11-28-2023 End: 11-28-2023 ambulatory [facility] Work Phone: Start: 11-28-2023 End: 11-28-2023 Departed Referred [facility] [address] Start: 07-29-2023 End: 07-29-2023 ambulatory [facility] Work Phone: Start: 07-29-2023 End: 07-29-2023 Departed Referred [facility] [address] Start: 03-22-2022 End: 03-22-2022 Departed Referred [facility] - [address] Start: 03-17-2022 End: 03-17-2022 Emergency department patient visit Ant Islas MD Work Phone: [facility] Comment on above: Right leg weakness ( Primary Dx); Frequent falls; Degenerative disc disease, lumbar Start: 02-10-2021 End: 02-10-2021 Subsequent hospital visit by physician Alonzo Zheng MD Work Phone: [facility] Comment on above: Carpal tunnel syndro me of right wrist (Primary Dx) Start: 02-03-2021 End: 02-03-2021 Subsequent hospital visit by physician Alonzo Zheng MD Work Phone: [facility] [facility] Pre-Admit Testing Comment on above: Arrived Start: 11-28-2020 End: 11-28-2020 Subsequent hospital visit by physician Eric Mcdermott Work Phone: [facility] Neuro Comment on above: Arrived Start: 05-03-2020 End: 05-03-2020 Subsequent hospital visit by physician Desi Cortez Work Phone: [facility] Vascular Lab Comment on above: Arrived Start: 04-24-2019 End: 04-24-2019 Subsequent hospital visit by physician Eric Mcdermott Work Phone: [facility] Radiology Procedures Date Procedure Procedure Detail Performing Clinician Start: 03-17-2022 COVID-19, FLU A/B, A ND RSV COMBO Nils Moore EDUCATION INSTRUCTOR - GEOLOGICAL TECHNICIAN Work Phone: Start: 03-17-2022 Ct head/brain w/o co ntrast material Nils Moore EDUCATION INSTRUCTOR - GEOLOGICAL TECHNICIAN Work Phone: Start: 03-17-2022 Ct lumbar spine w/o contrast material Nils Moore EDUCATION INSTRUCTOR - GEOLOGICAL TECHNICIAN Work Phone: Start: 03-17-2022 Comprehensive metabo lic panel Nils Moore NISHI - GEOLOGICAL TECHNICIAN Work Phone: Start: 03-17-2022 Ecg routine ecg w/le ast 12 lds w/i&r Nils Moore EDUCATION INSTRUCTOR - GEOLOGICAL TECHNICIAN Work Phone: Start: 02-03-2021 Comprehensive metabo lic panel Jersonbilly Storm MD Work Phone: Start: 02-03-2021 Ecg routine ecg w/le ast 12 lds w/i&r Jersonbilly Storm MD Work Phone: Start: 11-28-2020 EMG REPORT Josh doyley Work Phone: Start: 05-03-2020 Non-invasive physiol ogic study extremity 3 kavita Cortez Work Phone: Plan of Treatment Date Care Activity Detail Author Start: 04-29-2022 Influenza vaccination Flu vaccine (# 1) [facility] Start: 03-11-2021 COVID-19 Vaccine (2 - Booster for Daniel series) COVID-19 Vaccine (2 - Booster for Daniel series) [facility] Start: 02-26-2021 End: 02-26-2021 Patient encounter procedure 02/26/2021 Office Visit Orthopedic Surgery Alonzo Zheng MD [address] [facility] [address] [place], [place] [id number] [facility] [place] Start: 02-10-2021 End: 02-10-2021 Patient encounter procedure 02/10/2021 Appointment General Surgery Alonzo Zheng MD [address] [facility] [address] [place], [place] [id number] [facility] Start: 04-29-2020 Influenza vaccination Flu vaccine (# 1) [place], [place] Start: 05-31-2019 Annual Wellness Visi t (AWV) Annual Wellness Visit (AWV) [place] Start: 04-29-2019 Influenza vaccination Flu vaccine (# 1) [place] Start: 12-07-2017 Pneumococcal 65+ yea rs Vaccine (2 - PCV) Pneumococcal 65+ years Vaccine (2 - PCV) [facility] Start: 2011 Abdominal aortic aneurysm screening AAA screen [facility] Start: 2011 Pneumococcal 65+ yea rs Vaccine (1 of 1 - PPSV23) Pneumococcal 65+ years Vaccine (1 of 1 - PPSV23) [place] Start: 2011 Pneumococcal 65+ yea rs Vaccine (1 of 2 - PCV13) Pneumococcal 65+ years Vaccine (1 of 2 - PCV13) [place] Start: 1996 Screening for malign ant neoplasm of colon Colon cancer screen colonoscopy [place], [place] Start: 1996 Shingles Vaccine (1 of 2) Shingles Vaccine (1 of 2) [facility] Start: 1991 Screening for malign ant neoplasm of colon [facility] Start: 1986 Lipid panel Lipid screen [place], [place] Start: 1965 DTaP/Tdap/Td vaccine (1 - Tdap) DTaP/Tdap/Td vaccine (1 - Tdap) [facility] Start: 1964 Hepatitis C screening Hepatitis C sc luis alberto [facility] Start: 1962 COVID-19 Vaccine (1) COVID-19 Vaccin e (1) [facility] Work Phone: Start: 1958 Depression Screen Depression Screen [facility] Start: 1956 Lipid panel [facility] Start: 1946 Abdominal aortic aneurysm screening AAA screen [facility] Work Phone: Start: 1946 Annual Wellness Visi t (AWV) Annual Wellness Visit (AWV) [facility] Start: 1946 Hepatitis C screening Hepatitis C sc andreian [place], [place] Blood glucose - POCT [facility] Work Phone: Comment on above: As Needed until disc ontinued starting 02/10/2021 EKG 12 Lead EKG 12 Lead ECG Routine 02/03/2021 9:32 AM EDT [facility] Work Phone: End: 02-10-2021 Intermittent pulse oximetry Pulse Oximetry Spot Check Respiratory Care Routine One Time for 1 Occurrences starting 02/10/2021 until 02/10/2021 [employer] Work Phone: Comment on above: One Time for 1 Occur rences starting 02/10/2021 until 02/10/2021 Oxygen therapy [[facility] Data Set] Initiate Oxygen Therapy Protocol Respiratory Care Routine Daily until discontinued starting 02/10/2021 [employer] Work Phone: Comment on above: Daily until disconti nued starting 02/10/2021 Spirometry panel Incentive enrrique metry Respiratory Care Routine Q1H PRN until discontinued starting 02/10/2021 [employer] Work Phone: Comment on above: Q1H PRN until discon tinued starting 02/10/2021 End: 04-24-2019 XR Cervical Spine W Obliques Flexion and Extension XR Cervical Spine W Obliques Flexion and Extension Imaging Routine Once for 1 Occurrences starting 04/24/2019 until 04/24/2019 [place] Comment on above: Once for 1 Occurrenc es starting 04/24/2019 until 04/24/2019 XR Cervical Spine W Obliques Flexion and Extension XR Cervical Spine W Obliques Flexion and Extension Imaging Routine 04/24/2019 9:25 AM EDT [place] Payers Date Payer Category Payer Self-pay 2024 Unknown [id number] 2024 Unknown [id number] 2019 Medicare [id number] Medicare MEDICARE PART A B [id number] Unknown [id number] Unknown [id number] Unknown [id number] Unknown [id number] Unknown [id number] Social History Date Type Detail Facility [facility] [place] [place] Start: 1945 [facility] [place] [place] Start: 02-03-2021 End: 02-10-2021 Tobacco smoking status NHIS Current every day smoker [employer] Work Phone: History of tobacco use Cigarette Smoker S TAMIKO Start: 02-03-2021 End: 02-10-2021 Cigarettes smoked current (pack per day) - Reported [employer] Work Phone: Start: 02-03-2021 End: 02-10-2021 Tobacco use and exposure Never used [employer] Start: 02-03-2021 End: 03-17-2022 Alcohol intake Lifetime non-drinker (finding) [facility] Work Phone: Start: 02-03-2021 History SDOH Alcohol Frequency 1 [employer] Work Phone: Start: 03-07-2022 End: 03-17-2022 Exposure to SARS-CoV-2 (event) Not sure [employer] Start: 02-10-2021 Tobacco Comment last smoked 2200 [employer] Work Phone: Start: 1945 Sex Assigned At Male [facility] if ever smoked [facility] Work Phone: Start: 12-25-2024 Sex Male (finding) [facility] Hospital Discharge instructions 03-17-2022 Discharge Instr - SONDRA Note Date & Type Note Facility 03-17-2022 Hospital Discharg e instructions RUSLAN Costa - 03/17/2022 3:34 PM EDT Continuity of Care Form Patient Name: Jac Jimenez : 1945 Admit date: 03/17/2022 Discharge date: Code Status Order: Prior Advance Directives: Admitting Physician: No admitting provider for patient encounter. PCP: ERIC MCDERMOTT DO Discharging Nurse: Discharging Hospital Unit/Room#: Discharging Unit Phone Number: Emergency Contact: Extended Emergency Contact Information Primary Emergency Contact: Andria Jimenez Relation: Spouse Past Surgical History: Past Surgical History: Procedure Laterality Date BACK SURGERY 10 years ago MICRODISECTOMY AT [facility] CARPAL TUNNEL RELEASE Right 02/10/2021 Right Carpal tunnel decompression with flexor tenosynovectomy, Guyon's tunnel decompression, and Cubital tunnel decompression with subcutaneous transposition COLONOSCOPY ENDOSCOPY, COLON, DIAGNOSTIC WISDOM TOOTH EXTRACTION Immunization History: There is no immunization history on file for this patient. Active Problems: There is no problem list on file for this patient. Isolation/Infection: Isolation No Isolation Patient Infection Status None to display Nurse Assessment: Last Vital Signs: BP 121/71 Pulse 61 Temp 97.7 F (36.5 C) (Oral) Resp 20 Wt 86.2 kg (190 lb) SpO2 96% BMI 26.50 kg/m Last documented pain score (0-10 scale): Pain Level: 0 Last Weight: Wt Readings from Last 1 Encounters: 03/17/22 86.2 kg (190 lb) Mental Status: {IP PT MENTAL STATUS:} IV Access: { SONDRA IV ACCESS:[id number]} Nursing Mobility/ADLs: Walking Assisted Transfer Assisted Bathing Assisted Dressing Assisted Toileting Assisted Feeding Assisted [employer] Senior Officer Assisted Med Delivery whole Wound Care Documentation and Therapy: Incision 02/10/21 Elbow Anterior;Right (Active) Number of days: 400 Incision 02/10/21 Wrist Anterior;Right (Active) Number of days: 400 Elimination: Continence: Bowel: Yes Bladder: Yes Urinary Catheter: None Colostomy/Ileostomy/Ileal Conduit: No Date of Last BM: No intake or output data in the 24 hours ending 03/17/22 1534 No intake/output data recorded. Safety Concerns: History of Falls (last 30 days) Impairments/Disabilities: None Nutrition Therapy: Current Nutrition Therapy: - Oral Diet: General Routes of Feeding: Oral Liquids: No Restrictions Daily Fluid Restriction: {CHP DME Yes amt example:[id number]} Last Modified Barium Swallow with Video (Video Swallowing Test): {Done Not Done Date:} Treatments at the Time of Hospital Discharge: Respiratory Treatments: Oxygen Therapy: {Therapy; copd oxygen:16420} Ventilator: { CC Vent List:[id number]} Rehab Therapies: Physical Therapy and Occupational Therapy Weight Bearing Status/Restrictions: No weight bearing restrictions Other Medical Equipment (for information only, NOT a DME order): walker Other Treatments: Patient's personal belongings (please select all that are sent with patient): {CHP DME Belongings:700401391} RN SIGNATURE: {Esignature:[id number]} CASE MANAGEMENT/SOCIAL WORK SECTION Inpatient Status Date: Readmission Risk Assessment Score: Readmission Risk Risk of Unplanned Readmission: 0 Discharging to Facility/ Agency Name: [facility] Address: [address] [place] [address] Dialysis Facility (if applicable) Name: Address: Dialysis Schedule: Phone: Fax: Sheet Metal Helper/Hem Inspector signature: PHYSICIAN SECTION Prognosis: Good Condition at Discharge: Stable Rehab Potential (if transferring to Rehab): Good Recommended Labs or Other Treatments After Discharge: PT/OT for gait instability, degenerative lumbar disc disease, frequent falls Physician Certification: I certify the above information and transfer of Jac Jimenez is necessary for the continuing treatment of the diagnosis listed and that he requires Intermediate Nursing Care for less 30 days. Update Admission H&P: No change in H&P PHYSICIAN SIGNATURE: documented in this encounter [facility] Work Phone: History of Present illness Narrative 03-17-2022 Kamlesh Lord, PT - 03/17/2022 3:32 PM EDTSang Luke, OT - 03/17/2022 3:31 PM EDT Note Date & Type Note Facility 03-17-2022 History of Present illness Narrative Physical Therapy Facility/Department: [facility] Physical Therapy Initial Assessment Name: Jac Jimenez : 1945 Date of Service: 03/17/2022 Discharge Recommendations: Subacute/Half-Way Facility PT Equipment Recommendations Other: tbd at d/c location Patient Diagnosis(es): The primary encounter diagnosis was Right leg weakness. Diagnoses of Frequent falls and Degenerative disc disease, lumbar were also pertinent to this visit. Past Medical History: has a past medical history of Arthritis, Carpal tunnel syndrome, Cubital tunnel syndrome, bilateral, Current every day smoker, GERD (gastroesophageal reflux disease), and High cholesterol. Past Surgical History: has a past surgical history that includes back surgery (10 years ago); Colonoscopy; Endoscopy, colon, diagnostic; [place] tooth extraction; and Carpal tunnel release (Right, 02/10/2021). Assessment Body Structures, Functions, Activity Limitations Requiring Skilled Therapeutic Intervention: Decreased functional mobility ;Decreased strength;Decreased safe awareness;Decreased endurance;Decreased balance Assessment: Pt presents with above deficits after present to ER 03/17 with leg weakness. At baseline pt IND with SPC PRN, recently to facility and has had trouble getting around at home. He demo bed mobility SBA, functional transfer mod A to FWW, ambulation min A with FWW. PT at increased falls risk and unsafe to return home this date, will rec SNF Therapy Prognosis: Good Decision Making: Medium Complexity Exam: [facility] Clinical Presentation: Pt admitted 03/17 with leg weakness. He has medical history as indicated which contribute to his clinical presentation. He demo bed mobility SBA, functional transfer mod A and ambulation min A with FWW, will benefit from SNF Barriers to Learning: cognition Requires PT Follow-Up: Yes Activity Tolerance Activity Tolerance: Patient limited by fatigue;Patient limited by endurance Plan Plan Plan: (6 visits) Current Treatment Recommendations: Strengthening, Functional mobility training, Balance training, Transfer training, Gait training, Endurance training, Pain management, Equipment evaluation, education, & procurement, Therapeutic activities, Home exercise program, Positioning, Safety education & training, Patient/Caregiver education & training Plan Comment: goals and treatment plan established in collaboration with pt Safety Devices Type of Devices: Gait belt, All fall risk precautions in place, Nurse notified, Patient at risk for falls, Call light within reach, Left in bed Restrictions Restrictions/Precautions Restrictions/Precautions: General Precautions, Fall Risk (up with assist) Required Braces or Orthoses?: No Position Activity Restriction Other position/activity restrictions: tele Subjective Pain: denies General Chart Reviewed: Yes Patient assessed for rehabilitation services?: Yes Family / Caregiver Present: No Follows Commands: Within Functional Limits General Comment Comments: Per RN pt okay for therapy Subjective Subjective: Pt pleasant and agreeable to PT Social/Functional History Social/Functional History Lives With: Alone Type of Home: House Home Layout: One level Home Access: Level entry Bathroom Shower/Tub: Walk-in shower Bathroom Toilet: Standard Bathroom Equipment: Grab bars in shower Bathroom Accessibility: Walker accessible Home Equipment: Cane Has the patient had two or more falls in the past year or any fall with injury in the past year?: Yes ADL Assistance: Independent Homemaking Assistance: Independent Homemaking Responsibilities: Yes Ambulation Assistance: Independent Transfer Assistance: Independent Active Purchasing Manager/Sales: Yes Mode of Transportation: Car (tilll a week ago when he sold his car) Additional Comments: reports increased difficulty with ADLs, IADLS since to facility Vision/Hearing Vision Vision: Impaired Vision Exceptions: Wears glasses at all times Hearing Hearing: Within functional limits Cognition Orientation Overall Orientation Status: Within Functional Limits Cognition Overall Cognitive Status: Exceptions Arousal/Alertness: Appropriate responses to stimuli Following Commands: Follows one step commands with increased time;Follows one step commands with repetition Attention Span: Attends with cues to redirect Memory: Decreased short term memory Safety Judgement: Decreased awareness of need for assistance Problem Solving: Assistance required to identify errors made Insights: Decreased awareness of deficits Initiation: Requires cues for some Sequencing: Requires cues for some Objective Observation/Palpation Posture: Fair Observation: ED tele Gross Assessment AROM: Generally decreased, functional Strength: Generally decreased, functional Tone: Normal Sensation: Intact Bed mobility Supine to Sit: Stand by assistance Sit to Supine: Stand by assistance Bed Mobility Comments: HOB slightly elevated, denies dizziness upon sitting up. Transfers Sit to Stand: Contact guard assistance;Moderate Assistance Stand to sit: Moderate Assistance Comment: Pt initially transfer from elevated bed to FWW with CGA, later transfer x2 trials with FWW from [facility]. Therapist cues pt for hand and foot placement, upright trunk posture. He demo decreased eccentric control to sit Ambulation Surface: level tile Device: Rolling Walker Assistance: Minimal assistance Quality of Gait: Pt ambulates with Grzegorz and FWW. He demo short shuffling gait with decreased laurence, step length. He demo no overt LOB but very unsteady throughout, demo increased lateral sway, poor walker management Gait Deviations: Slow Laurence;Decreased step length;Decreased step height;Shuffles Distance: ~5 ft; ~20 ft Comments: Therapist cues pt for walker management and reciprocal step pattern, cues for upright trunk posture and safety throughout Stairs/Curb Stairs?: No Balance Posture: Fair Sitting - Static: Good;- Sitting - Dynamic: Fair;+ Standing - Static: Fair Standing - Dynamic: Fair;- AM-PAC Score AM-PAC Inpatient Mobility Raw Score : 15 (03/17/22 152) AM-PAC Inpatient T-Scale Score : 39.45 (03/17/22 152) Mobility Inpatient CMS 0-100% Score: 57.7 (03/17/22 152) Mobility Inpatient CMS G-Code Modifier : CK (03/17/221526) Tinneti Score Goals Short Term Goals Time Frame for Short term goals: 6 visits Short term goal 1: Pt will complete bed mobility Mod I to promote mobility Short term goal 2: Pt will complete functional transfer to FWW with SBA to promote safety Short term goal 3: Pt will ambulate 75 ft with FWW and SBA to promote mobility Short term goal 4: Pt will complete 1-2 sets 5-10 reps LE exercise to promote strength Patient Goals Patient goals : Pt did not state goals Education Patient Education Education Given To: Patient Education Provided: Role of Therapy;Transfer Training;Equipment;Plan of Care;Energy Conservation;Fall Prevention Strategies Education Method: Demonstration;Verbal Barriers to Learning: Cognition Education Outcome: Verbalized understanding;Continued education needed Therapy Time Individual Concurrent Group Co-treatment Time In 1508 (co-eval with OT-priority eval) Time Out 1518 Minutes 10 Kamlesh Lord PT Occupational Therapy Facility/Department: [facility] Occupational Therapy Initial Assessment Name: Jac Jimenez : 1945 Date of Service: 03/17/2022 Discharge Recommendations: Subacute/Half-Way Facility Patient Diagnosis(es): The primary encounter diagnosis was Right leg weakness. Diagnoses of Frequent falls and Degenerative disc disease, lumbar were also pertinent to this visit. Past Medical History: has a past medical history of Arthritis, Carpal tunnel syndrome, Cubital tunnel syndrome, bilateral, Current every day smoker, GERD (gastroesophageal reflux disease), and High cholesterol. Past Surgical History: has a past surgical history that includes back surgery (10 years ago); Colonoscopy; Endoscopy, colon, diagnostic; [place] tooth extraction; and Carpal tunnel release (Right, 02/10/2021). Assessment Performance deficits / Impairments: Decreased functional mobility ;Decreased ADL status;Decreased strength;Decreased endurance;Decreased cognition;Decreased high-level IADLs;Decreased balance;Decreased coordination;Decreased posture Assessment: Pt presented with R LE pain and weakness. Pt previously required some assist with ADLs, IADLs, and ambulated with a cane PRN. Pt currenlty requires mod assist to stand, min assist for fx mobility, total assist for ADLs, and SBA for bed mobility. OT rec SNF. Prognosis: Fair Decision Making: Medium Complexity REQUIRES OT FOLLOW-UP: Yes Activity Tolerance Activity Tolerance: Patient limited by fatigue Activity Tolerance Comments: weakness Plan Plan Times per Week: 4 visits Current Treatment Recommendations: Strengthening, Balance training, Functional mobility training, Endurance training, Safety education & training, Patient/Caregiver education & training, Equipment evaluation, education, & procurement, Self-Care / ADL, Home management training, Cognitive/Perceptual training Restrictions Restrictions/Precautions Restrictions/Precautions: General Precautions, Fall Risk (up with assist) Required Braces or Orthoses?: No Position Activity Restriction Other position/activity restrictions: tele Subjective General Chart Reviewed: Yes Patient assessed for rehabilitation services?: Yes Family / Caregiver Present: No Subjective Subjective: Pt supine in bed reporting he has to use the bathroom General Comment Comments: Per RN pt ok to see denies Social/Functional History Social/Functional History Lives With: Alone Type of Home: House Home Layout: One level Home Access: Level entry Bathroom Shower/Tub: Walk-in shower Bathroom Toilet: Standard Bathroom Equipment: Grab bars in shower Bathroom Accessibility: Walker accessible Home Equipment: Cane Has the patient had two or more falls in the past year or any fall with injury in the past year?: Yes ADL Assistance: Independent Homemaking Assistance: Independent Homemaking Responsibilities: Yes Ambulation Assistance: Independent Transfer Assistance: Independent Active Purchasing Manager/Sales: Yes Mode of Transportation: Car (tilll a week ago when he sold his car) Additional Comments: reports increased difficulty with ADLs, IADLS since to facility Objective Heart Rate: 61 BP: 121/71 MAP (Calculated): 87.67 Resp: 20 SpO2: 96 % Observation/Palpation Posture: Fair Observation: ED tele Safety Devices Type of Devices: Gait belt;All fall risk precautions in place;Nurse notified;Patient at risk for falls;Call light within reach;Left in bed Gait Overall Level of Assistance: (Pt completed fx mobility out to the hallway with min assist and FWW) Toilet Transfers Toilet - Technique: Stand step Equipment Used: Standard bedside commode Toilet Transfer: Moderate assistance Toilet Transfers Comments: cues required for sequencing and hand placement AROM: Within functional limits Strength: Generally decreased, functional Coordination: Generally decreased, functional Tone: Normal Sensation: Intact ((+) 3/3 light touch) ADL Feeding: Modified independent Grooming: Modified independent UE Bathing: Modified independent LE Bathing: Moderate assistance UE Dressing: Modified independent LE Dressing: Dependent/Total LE Dressing Skilled Clinical Factors: total assist for B socks this date Toileting: Moderate assistance Toileting Skilled Clinical Factors: Pt required assist with pants managment and required no hygiene this date Bed mobility Supine to Sit: Stand by assistance Sit to Supine: Stand by assistance Bed Mobility Comments: HOB slightly elevated, denies dizziness upon sitting up. Transfers Sit to stand: Contact guard assistance;Moderate assistance Stand to sit: Contact guard assistance;Moderate assistance Transfer Comments: Pt stood from bed with CGA but required mod assist to stand from BS (bed very high versus C stadard height) Vision - Basic Assessment Prior Vision: Wears glasses all the time Visual History: No significant visual history Patient Visual Report: No visual complaint reported. Vision Vision: Impaired Vision Exceptions: Wears glasses at all times Hearing Hearing: Within functional limits Cognition Overall Cognitive Status: Exceptions Arousal/Alertness: Appropriate responses to stimuli Following Commands: Follows one step commands with increased time;Follows one step commands with repetition Attention Span: Attends with cues to redirect Memory: Decreased short term memory Safety Judgement: Decreased awareness of need for assistance Problem Solving: Assistance required to identify errors made Insights: Decreased awareness of deficits Initiation: Requires cues for some Sequencing: Requires cues for some Orientation Overall Orientation Status: Within Functional Limits Education Given To: Patient Education Provided: Role of Therapy;Plan of Care Education Method: Verbal Barriers to Learning: Cognition Education Outcome: Verbalized understanding AM-PAC Score AM-PAC Daily Activity Inpatient How much help for putting on and taking off regular lower body clothing?: Total How much help for Bathing?: A Lot How much help for Toileting?: A Little How much help for putting on and taking off regular upper body clothing?: None How much help for taking care of personal grooming?: None How much help for eating meals?: None AM-PAC Inpatient Daily Activity Raw Score: 18 AM-PAC Inpatient ADL T-Scale Score : 38.66 ADL Inpatient CMS 0-100% Score: 46.65 ADL Inpatient CMS G-Code Modifier : CK Goals Short Term Goals Time Frame for Short term goals: 4 visits Short Term Goal 1: Pt will complete LBD with mod I Short Term Goal 2: Pt will complete toileting with mod I Short Term Goal 3: Pt will complete funtional transfers with mod I Patient Goals Patient goals : to get stronger Therapy Time Individual Concurrent Group Co-treatment Time In 1508 Time Out 1518 Minutes 10 Occupational Therapy This provider wore a surgical mask and gloves for duration of session with patient. documented in this encounter [facility] Work Phone: History of Present illness Narrative 02-10-2021 Margot Mena RN - 02/10/2021 11:45 AM Margot Zapien RN - 02/10/2021 11:40 AM Margot Zapien RN - 02/10/2021 11:21 AM Esthela Valle RN - 02/10/2021 9:04 AM EDT Note Date & Type Note Facility 02-10-2021 History of Present illness Narrative Phase II indicated, pt awake and talking, VS stable, pt dressed and ambulated to wheelchair without difficulty, home going instructions reviewed with patient, verbal understanding demonstrated and opportunity given for questions Pt awake and talking, tolerating RA well PATIENT RECEIVED FROM OR VIA CART. SPONT RESP. WITH IPHONE DEVELOPER IN ATTENDANCE. PLACED ON MONITOR. MONITOR ALARMS ON IN PACU. Ice pack to RT elbow/FA Timeout performed prior to regional block procedure. Dr Meehan in attendance. Patient lives alone due to his being in a penitentiary. I spoke with his ride today, his brother in law, who stated that he would be helping the patient into his home and checking on him, as well as the patients brother would be checking on him also. documented in this encounter [facility] Work Phone: Hospital Discharge instructions 02-03-2021 InstructionsAttachments Note Date & Type Note Facility 02-03-2021 Hospital Discharg e instructions Afia Rebollar RN - 02/03/2021 IF YOU USE A CPAP MACHINE OR RESCUE INHALER AT HOME PLEASE BRING THESE ITEMS WITH YOU THE DAY OF SURGERY. MEDICATION INSTRUCTIONS PRIOR TO SURGERY PLEASE BRING PROVIDED LIST BACK WITH YOU THE DAY OF SURGERY WITH DATE/TIME LAST DOSE OF MEDICATIONS TAKEN. HOLD ALL ALEVE PRODUCTS 3 DAYS PRIOR TO SURGERY HOLD IBUPROFEN/ ADVIL FOR 24 HOURS PRIOR TO SURGERY MAY TAKE TYLENOL UP UNTIL AM OF SURGERY IF NEEDED FOR PAIN During pre-admission testing appointment, patient instructed on the following To arrive 2 hours prior to scheduled surgery Upon arrival, stop in registration just past the main entrance and provide them with a photo id and a medical card if they have one After registration, come to the same day surgery department, stopping at the main desk They need to have made arrangements for a ride home following surgery and a phone number will need to be provided before going back to the operating room. If public transportation will be used after surgery, they are made aware that a responsible adult needs to accompany them. They need to make arrangements to have someone with them when they get home from surgery. Leave all jewelry, contacts and valuables at home Wear loose comfortable clothing to go home in Bring in the medication list provided for them and write in the date/time last dose was taken No food (including candy, gum and mints) the day of surgery They may have clear liquids ( water, black coffee/no liquid or powder creamer, clear tea, clear fruit juices/no pulp and carbonated beverages) up until 2 hours prior to surgery Do not drink alcohol, use recreational drugs or smoke/use nicotine products 24 hours prior to surgery. Encouraged to write down any questions they may have for the surgeon, anesthesiologist or any member of the surgical team, and to bring list of questions in with them To not shave the surgical site and to follow instructions provided on showering with the CHG solution During the pre-admission testing appointment, this nurse reviewed and provided patient with The taking care of yourself after surgery paper Billing information for anesthesia patients Preparing for your surgical procedure pamphlet After visit Summary with medication list and medication instructions The CHG solution and shower card with instruction. Pt encouraged to follow instructions on card Prior to end of PAT appointment, pt acknowledged understanding of information and instructions provided in preparation of upcoming surgery. The following attachments cannot be sent through Care Everywhere.Carpal Tunnel Release: Post-op ([place])Carpal Tunnel Release: Pre-op ([place])documented in this encounter [facility] Work Phone: Evaluation note Note Date & Type Note Facility Evaluation note Diagnosis Carpal tunnel syndrome of right wrist- Primary Carpal tunnel syndrome documented in this encounter [facility] Phone: Evaluation note Note Date & Type Note Facility Evaluation note Diagnosis Right leg weakness- Primary Other musculoskeletal symptoms referable to limbs Frequent falls Personal history of fall Degenerative disc disease, lumbar Degeneration of lumbar or lumbosacral intervertebral disc documented in this encounter [facility] Work Phone: Evaluation note Note Date & Type Note Facility Evaluation note No assessment information availa ble [facility] Work Phone: Hospital Discharge instructions Instructions Note Date & Type Note Facility Hospital Discharge instructions Alonzo Zheng MD - 02/10/2021 Keep bandages on, clean, and dry until first post operative appointment OK to remove sling and move elbow, thumb, and fingers. No movement of her wrist Aggressive ice and elevation to wrist and elbow to reduce pain and swelling Call office with any questions or concerns documented in this encounter [facility] Work Phone: Reason for referral (narrative) Note Date & Type Note Facility Reason for referral (narrative) No reason for referral information available [facility] Work Phone: Summary Purpose Family History No Family History Records FoundNo Family History Records FoundNo Family History Records Found Advance Directives No Advanced Directives Records FoundDocuments on File Type Date Recorded Patient Piler Expl anation ACP-Advance Directive ACP-Power of Executive Staff Assistant Latest Code Status on File Code Status Date Activated Date Inactivated Comments Full Code 02/10/2021 7:57 AM Latest Code Status on File Code Status Date Activated Date Inactivated Comments Full Code 02/10/2021 7:57 AM 02/10/2021 2:48 PM Chief Complaint and Reason for Visit Chief Complaint LABWORK Chief Complaint Admit Date [facility] November 28, 2024 5: 00am [facility] December 03, 2024 5: 00am Additional Source Comments (unrecognized sect ion and content) No Status Records FoundNo Status Records FoundNo Status Records Found INFORMATION SOURCE (unrecogn ized section and content) DATE CREATED AUTHOR 02/15/2018 [facility] DATE CREATED AUTHOR AUTHOR'S ORGANIZ ATION 03/20/2022 [facility] DATE CREATED AUTHOR AUTHOR'S ORGANIZ ATION 02/11/2025 [facility] Ordered Prescriptions (unrec ognized section and content) Prescription Sig Dispensed Refills Start Date End Da te ondansetron (ZOFRAN) 4 MG tablet Take 1 tablet by mouth 3 times daily as needed for Nausea or Vomiting 15 tablet 0 02/10/2021 acetaminophen-codeine (TYLENOL/CODEINE #3) 300-30 MG per tabletIndications:Carpal tunnel syndrome of right wrist Take 1 tablet by mouth every 4 hours as needed for Pain for up to 7 days. Intended supply: 7 days. Take lowest dose possible to manage pain 42 tablet 0 02/10/2021 02/17/2021 Scheduled Active and Recently Administ ered Medications (unrecognized section and content) Medication Order 02/08/2021 02/09/2021 02/10/2021 acetaminophen (TYLENOL) tablet 1,000 mg 1,000 mg, Oral, ONCE, On Tue02/10/21 at 0815, For 1 dose, Maximum dose of acetaminophen is 4000 mg from all sources in 24 hours. Do not administer if patient has taken tylenol <4 hours earlier. Do not give if contraindicated ie. patient has active liver disease or cirrhosis., Pre-op (day of surgery) 814 (Due) aprepitant (EMEND) capsule 40 mg (COMPLETED) 40 mg, Oral, ONCE, On Tue02/10/21 at 0900, For 1 dose, Pre-op (day of surgery) 08 (Given - Provid er: Flavia Aleman RN) ceFAZolin (ANCEF) 2000 mg in dextrose 5 % 100 mL IVPB 2,000 mg, Intravenous, CANAL STRUCTURE OPERATOR TO O.R., 1 dose, On Tue02/10/21 at 0815, Administer within 1 hour prior to incision. Recommend to repeat in 3-4 hours after initial dose if still intra-op., Pre-op (day of surgery) 814 (Due) dexameth sod whkr-rdiok-jpau (TAP) syringe SOSY 30 mL (COMPLETED) 30 mL, Transabdominal Plane, ONCE, On Tue02/10/21 at 0915, For 1 dose, Not a TAP block, brachial plexus block, PACU only 905 (Given by Other - Provider: Esthela Mclaughlin RN) famotidine (PEPCID) tablet 20 mg (COMPLETED) 20 mg, Oral, ONCE, On Tue02/10/21 at 0815, For 1 dose, Pre-op (day of surgery) 0852 (Given - Provid er: Flavia Aleman RN) lidocaine PF 1 % injection 2 mL (COMPLETED) 2 mL, Intradermal, ONCE, On Tue02/10/21 at 0915, For 1 dose, Draw up for preparation of administration during block procedure., PACU only 0905 (Given by Other - Provider: Esthela Mclaughlin, DARIN) sodium chloride flush 0.9 % injection 5-40 mL 5-40 mL, Intravenous, EVERY 12 HOURS SCHEDULED (2 times per day), First dose on Tue02/10/21 at 0900, For Line Patency: Peripheral IV = 5 mL; Midline or Central Line = 10 mL/lumen. If following IV push medication, administer flush at same rate as the IV push. Flush volume is determined by type of infusion therapy being given. For non-viscous solutions use: Peripheral IV = 5 mL Midline or Central Line = 10 mL/lumen For viscous solutions (i.e. blood components, parenteral nutrition, contrast media, or after obtaining blood sample) use: Peripheral IV = 10 mL Midline or Central Line = 20 mL/lumen, Pre-op (day of surgery) 0900 (Due)2100 (Due) Continuous Medication Order 02/08/2021 02/09/2021 02/10/2021 lactated ringers infusion Intravenous, at 50 mL/hr, CONTINUOUS, Starting on Tue02/10/21 at 0815, Upon admission to sameday - please start iv if patient does not have iv access. Use 500ml NS for patients on dialysis., Pre-op (day of surgery) 0852 (New Bag - Prov ider: Flavia Aleman RN) PRN Medication Order 02/08/2021 02/09/2021 02/10/2021 0.9 % sodium chloride bolus 500 mL (5.59 mL/kg), Intravenous, at 250 mL/hr, Administer over 2 Hours, ONCE PRN, Nausea, Starting on Tue02/10/21 at 0849, For 1 dose, PACU only 0.9 % sodium chloride infusion 25 mL, Intravenous, at 100 mL/hr, PRN, If patient receiving piggyback infusions without ordered maintenance IV fluids or with frequent/long duration piggyback infusions, Starting on Tue02/10/21 at 0757, Administer at the same rate as the piggyback being infused., Pre-op (day of surgery) ALPRAZolam (NIRAVAM) dissolvable tablet 0.25 mg 0.25 mg, Oral, PRN, Anxiety, Starting on Tue02/10/21 at 0757, Pre-op (day of surgery) diphenhydrAMINE (BENADRYL) injection 12.5 mg 12.5 mg, Intravenous, ONCE PRN, Itching, Starting on Tue02/10/21 at 0849, For 1 dose, PACU only hydrALAZINE (APRESOLINE) injection 5 mg 5 mg, Intravenous, EVERY 10 MIN PRN, High Blood Pressure, Starting on Tue02/10/21 at 0849, PRN for SBP > 160 for 2 consecutive measurements, and if one of the following conditions is met: 1) If IV labetolol is ineffective. 2) If HR is under 60. 3) If patient has heart block, COPD or asthma. If both labetalol and hydralazine ineffective, notify anesthesiologist., PACU only labetalol (NORMODYNE;TRANDATE) injection 5 mg 5 mg, Intravenous, EVERY 10 MIN PRN, High Blood Pressure, Starting on Tue02/10/21 at 0849, PRN for SBP >160 for 2 consecutive measurements, if HR is 60 or greater. If beta gallo is contraindicated (HR less than 60, heart block, COPD or asthma) use hydralazine IV order., PACU only lidocaine PF 1 % injection 1 mL 1 mL, Intradermal, ONCE PRN, IV start, Starting on Tue02/10/21 at 0757, For 1 dose, Pre-op (day of surgery) midazolam (VERSED) injection 2 mg 2 mg, Intravenous, PRN, Anxiety, administration per anesthesiologist direction. Up to two mg., Starting on Tue02/10/21 at 0849, Pull 2 mg vial of midazolam draw up in PACU for anesthesia block placement with administration per anesthesiologist direction. Up to two mg., PACU only 904 (Given - Provid er: Esthela Mclaughlin RN) ondansetron (ZOFRAN) injection 4 mg 4 mg, Intravenous, ONCE PRN, Nausea, Starting on Tue02/10/21 at 0849, For 1 dose, Initial antiemetic therapy., PACU only promethazine (PHENERGAN) injection 6.25 mg 6.25 mg, Intravenous, ONCE PRN, Nausea, Starting on Tue02/10/21 at 0849, For 1 dose, Caution if used IV:Check IV site for infiltrate prior to and during administration. Secondary antiemetic therapy. For IV administration, dilute to 10ml with normal saline. Must be administered over at least 10 minutes., PACU only sodium chloride flush 0.9 % injection 5-40 mL 5-40 mL, Intravenous, PRN, Line Care, Starting on Tue02/10/21 at 0757, For Line Patency: Peripheral IV = 5 mL; Midline or Central Line = 10 mL/lumen. If following IV push medication, administer flush at same rate as the IV push. Flush volume is determined by type of infusion therapy being given. For non-viscous solutions use: Peripheral IV = 5 mL Midline or Central Line = 10 mL/lumen For viscous solutions (i.e. blood components, parenteral nutrition, contrast media, or after obtaining blood sample) use: Peripheral IV = 10 mL Midline or Central Line = 20 mL/lumen, Pre-op (day of surgery) Scheduled Medication Order 03/15/2022 03/16/2022 03/17/2022 sodium chloride flush 0.9 % injection 3 mL(Linked Group 1) 3 mL, IntraVENous, EVERY 8 HOURS, First dose on Tue03/17/22 at 1221, Until Discontinued, Flush line with 3-5 mL 1305 (Given by Other - Provider: Ashlyn Olivia RN)2031 (Not Given - Provider: Ashlyn Olivia, RN - Reason: Loss of IV access) Linked Groups Order Group 1: Saline lock IV (COMPLETED) Routine, CONTINUOUS, Starting on Tue03/17/22 at 1230, Until Specified And sodium chloride flush 0.9 % injection 3 mLJump to med 3 mL, IntraVENous, EVERY 8 HOURS, First dose on Tue03/17/22 at 1221, Until Discontinued
Flush line with 3-5 mL
Care Teams (unrecognized sec tion and content) Repair Specialist Relationship Specialty Start Date End Date Eric Mcdermott DO [address] [place] [address] PCP - General 04/24/19 Team Status: Inactive Member Role Status Dates Barrett MADRIGAL Attending Provider Active Team Status: Inactive Member Role Status Dates Barrett Razo KAITLIN Attending Provider Active Star t: November 28, 2024 End: November 28, 2024 Team Status: Inactive Member Role Status Dates Barrett Razo KAITLIN Attending Provider Active Star t: December 03, 2024 End: December 03, 2024 Goals (unrecognized section and content) Goals may be documented in a n alternate sectionGoals may be documented in an alternate sectionGoals may be documented in an alternate sectionGoals may be documented in an alternate section FOR RECORDS PERTAINING TO PATIENTS WHO ARE OR HAVE BEEN ENROLLED IN A CHEMICAL DEPENDENCY/SUBSTANCEABUSE PROGRAM, SOME INFORMATION MAY BE OMITTED. This clinical summary was aggregated from multiple sources. Caution should be exercised in using it in the provision of clinical care. This summary normalizes information from multiple sources, and as a consequence, information in this document may materially change the coding, format and clinical context of patient data. In addition, data may be omitted in some cases. CLINICAL DECISIONS SHOULD BE BASED ON THE PRIMARY CLINICAL RECORDS. [facility] [employer] provides no warranty or guarantee of the accuracy or completeness of information in this document.
[2025-07-03 08:51] LABS: Anion Gap 11 (5-15); BUN 19 mg/dL (4-19); BUN/Creat Ratio 16.3 RATIO (10-20); Calcium,Total 8.9 mg/dL (7.6-11.0); Carbon Dioxide 26.0 mmol/L (21.0-32.0); Chloride 106 mmol/L (98-108); Glucose 92 mg/dL (70-99); Potassium 4.4 mmol/L (3.3-5.1)
== END ==
LOC: OLS.ACW300 05:00
PROVIDERS: Visit Provider Family Medicine
DX: M54.50 Low back pain, unspecified (principal); M53.81 Other specified dorsopathies, occipito-atlanto-axial region
CPT/HCPCS: 36415; 80048

== ENCOUNTER → 2025-07-30 04:00 | Outpatient (REF) | payer MEDICARE, MEDICAID, SELFPAY ==
--- OUTSIDE RECORDS SUMMARY | 2025-07-30 04:25 | XMS RPT_ITS | CCD ---
Author Organization [facility] Care Team Providers Care Corn Popper Name Role Phone Eric Mcdermott Primary Care [...] 5 mg/ml injectable solution (1 source) beta-Adrenergic Jose Start: 02-10-2021 labetalol (NORMODYNE;TRANDATE ) injection 5 [...] (EMEND) capsule 4 0 mg dexameth sod dxcl-mdqcb-jfhr (TAP) syringe SOSY 30 mL (1 source) Start: 02-10-2021 End: 02-10-2021 dexameth sod hstu-licek-hmnt (TAP) syringe SOSY 30 mL famotidine 20 [...] PF 1 % injection 1 mL Problems Active Problems Problem Classification Problem Date Documented Date Episodic/Chronic Anxiety disorders (2 sources) Anxiety disorder, unspecified; Translations: [Anxiety disorder, unspecified] Onset: 12-25-2024 Chronic Other acquired deformities (2 sources) Contracture, unspecified [...] Translations: [Low back pain, unspecified] Onset: 12-25-2024 Past or Other Problems Problem Classification Problem Date Documented Da te Episodic/Chronic Malaise and fatigue (2 sources) Other malaise; Translations: [Other malaise] Onset: 12-19-2024 Episodic Results Test Name Value Interpretation Reference Range Facility Bilirubin directOrdered By: Barrett Razo on 12-03-2024 Bilirubin.direct [Mass/Vol] 0.33 mg/dL High 0.00-0.30 [facility] Bilirubin, totalOrdered By: Barrett Razo on 12-03-2024 Bilirubin [Mass/Vol] 0.63 mg/dL 0.00-1.30 [facility] Calculated very low density lipoprotein (VLDL) cholesterol measurementOrdered By: Barrett Razo on 04-07-2025 VLDL Cholesterol 14 mg/dL 5-40 [facility] LDL calc ser/plasOrdered By: Barrett Razo on 12-03-2024 LDL Cholesterol, Calculated 42 mg/dL [facility] Comment on above: Vzfxuoceou=357-022 m g/dL & Higher Uqdu=844 mg/dL or greater Laboratory - Chemistry and C hemistry - challengeOrdered By: Barrett Razo on 12-03-2024 AST [Catalytic activity/Vol] 17 U/L <38 [facility] Screening total cholesterol/ high density lipoprotein (HDL) cholesterol ratioOrdered By: Barrett Razo on 12-03-2024 Cholesterol.total/Monique sterol in HDL [Mass ratio] 2.13 {ratio} [facility] Serum globulin measurementOr dered By: aBrrett Razo on 12-03-2024 Globulin (S) [Mass/Vol] 2.6 g/dL 2.2-4.2 [facility] Serum or plasma alanine aguirre otransferase (ALT) measurementOrdered By: Barrett Razo on 12-03-2024 ALT [Catalytic activity/Vol] 14 U/L <47 [facility] Serum or plasma albumin juma urement (mass/volume)Ordered By: Barrett Razo on 12-03-2024 Albumin [Mass/Vol] 3.7 g/dL 3.4-4.8 [facility] Serum or plasma alkaline paula sphatase measurementOrdered By: Barrett Razo on 12-03-2024 ALP [Catalytic activity/Vol] 86 U/L 40-129 [facility] Serum or plasma cholesterol in HDL measurement (mass/volume)Ordered By: Barrett Razo on 12-03-2024 Cholesterol in HDL [Mass/Vol] 50 mg/dL >40 [facility] Comment on above: National Cholesterol Education Program (NCEP) guidelines:<40 mg/dL: Low HDL-cholesterol (major risk factor for CHD)>= 60 mg/dL: High HDL-cholesterol (negative risk factor for CHD)HDL-cholesterol is affected by a number of factors, e.g. smoking, exercise, hormones, sex and age. Serum or plasma cholesterol measurement (mass/volume)Ordered By: Barrett Razo on 12-03-2024 Cholesterol [Mass/Vol] 106 mg/dL <201 [facility] Comment on above: Cholesterol level, D esirable <200 mg/dLBorderline high cholesterol 200-239 mg/dLHigh cholesterol >=240 mg/dLRecommendations of the NCEP Adult Treatment Panel for the following risk-cutoff thresholds for the [place] population. Total proteinOrdered By: Gregorio Razo on 12-03-2024 Protein [Mass/Vol] 6.3 g/dL 5.9-8.4 [facility] Triglycerides measurementOrd ered By: Barrett Razo on 12-03-2024 Triglyceride [Mass/Vol] 71 mg/dL <199 [facility] Comment on above: The drugs N-Acetylcy steine and Metamizole may falsely depress this assay. Normal range: <150 mg/dLBorderline High: 150-199 mg/dLHigh: 200-499 mg/dLVery High: >500 mg/dL Calculated very low density lipoprotein (VLDL) cholesterol measurementOrdered By: Barrett Razo on 11-28-2024 VLDL Cholesterol 12 mg/dL 5-40 [facility] LDL calc ser/plasOrdered By: Barrett Razo on 11-28-2024 LDL Cholesterol, Calculated 43 mg/dL [facility] Comment on above: Xhjaozatzh=877-600 m g/dL & Higher Vqym=362 mg/dL or greater Screening total cholesterol/ high density lipoprotein (HDL) cholesterol ratioOrdered By: Barrett Razo on 11-28-2024 Cholesterol.total/Monique sterol in HDL [Mass ratio] 2.11 {ratio} [facility] Serum or plasma cholesterol in HDL measurement (mass/volume)Ordered By: Barrett Razo on 11-28-2024 Cholesterol in HDL [Mass/Vol] 50 mg/dL >40 [facility] Comment on above: National Cholesterol Education Program (NCEP) guidelines:<40 mg/dL: Low HDL-cholesterol (major risk factor for CHD)>= 60 mg/dL: High HDL-cholesterol (negative risk factor for CHD)HDL-cholesterol is affected by a number of factors, e.g. smoking, exercise, hormones, sex and age. Serum or plasma cholesterol measurement (mass/volume)Ordered By: Barrett Razo on 11-28-2024 Cholesterol [Mass/Vol] 105 mg/dL <201 [facility] Comment on above: Cholesterol level, D esirable <200 mg/dLBorderline high cholesterol 200-239 mg/dLHigh cholesterol >=240 mg/dLRecommendations of the NCEP Adult Treatment Panel for the following risk-cutoff thresholds for the [place] population. Triglycerides measurementOrd ered By: Barrett Razo on 11-28-2024 Triglyceride [Mass/Vol] 60 mg/dL <199 [facility] Comment on above: The drugs N-Acetylcy steine and Metamizole may falsely depress this assay. Normal range: <150 mg/dLBorderline High: 150-199 mg/dLHigh: 200-499 mg/dLVery High: >500 mg/dL Basophil percentageOrdered B y: Barrett Razo on 11-28-2023 Cholesterol [Mass/Vol] 115 mg/dL <200 [facility] Comment on above: <200 mg/dL Desirable 200-240 mg/dL Borderline >240 mg/dL High Risk Triglyceride [Mass/Vol] 51 mg/dL <199 [facility] Comment on above: The drugs N-Acetylcy steine and Metamizole may falsely depress this assay.Serum Triglycerides Reference Interval Normal <150 mg/dL Borderline high 150 - 199 mg/dL High 200 - 499 mg/dL Very High > or = 500 mg/dL Laboratory - Chemistry and C hemistry - challengeOrdered By: Barrett Razo on 11-28-2023 Cholesterol in HDL [Mass/Vol] 55 mg/dL >40 [facility] Comment on above: The drugs N-Acetylcy steine and Metamizole may falsely depress this assay. Reference Range HDL <40 mg/dL Low HDL Cholesterol HDL >or= 60 mg/dL High HDL Cholesterol Cholesterol in LDL [Mass/Vol] 50 mg/dL 0-130 [facility] No Panel InformationOrdered By: Barrett Razo on 11-28-2023 VLDL Cholesterol 10 mg/dL 5-40 [facility] Basophil percentageOrdered B y: Barrett Razo on 07-29-2023 Bilirubin [Mass/Vol] 0.50 mg/dL 0.20-1.00 [facility] Comment on above: For patients on eltr ombopag therapy, use of Dimension [place] TBIL is not recommended. Chloride [Moles/Vol] 110 mmol/L 98-107 [facility] Cholesterol [Mass/Vol] 101 mg/dL <200 [facility] Comment on above: <200 mg/dL Desirable 200-240 mg/dL Borderline >240 mg/dL High Risk Glucose [Mass/Vol] 98 mg/dL 74-106 [facility] Potassium [Moles/Vol] 3.9 mmol/L 3.5-5.1 [facility] Protein [Mass/Vol] 5.8 g/dL 6.4-8.2 [facility] Sodium [Moles/Vol] 141 mmol/L 136-145 [facility] Triglyceride [Mass/Vol] 51 mg/dL <199 [facility] Comment on above: The drugs N-Acetylcy steine and Metamizole may falsely depress this assay.Serum Triglycerides Reference Interval Normal <150 mg/dL Borderline high 150 - 199 mg/dL High 200 - 499 mg/dL Very High > or = 500 mg/dL WBC (Bld) [#/Vol] 8.9 10*3/uL 4.4-11.0 [facility] Blood erythrocytes count (nu mber/volume)Ordered By: Barrett Razo on 07-29-2023 RBC (Bld) [#/Vol] 4.31 10*6/uL 4.6-6.2 [facility] Blood hemoglobin measurement (mass/volume)Ordered By: Barrett Razo on 07-29-2023 Hemoglobin (Bld) [Mass/Vol] 13.0 g/dL 13.0-16.5 [facility] Blood platelet mean volumeOr dered By: Barrett Razo on 07-29-2023 Platelet mean volume (Bld) [Entitic vol] 10.8 fL 6.2-12.0 [facility] Determination of erythrocyte mean corpuscular volume (MCV)Ordered By: Barrett Razo on 07-29-2023 MCV (RBC) [Entitic vol] 93.3 fL 80-94 [facility] Hematocrit Auto (Bld) [Volum e fraction]Ordered By: Barrett Razo on 07-29-2023 Hematocrit (Bld) [Volume fraction] 40.2 % 40-54 [facility] Laboratory - Chemistry and C hemistry - challengeOrdered By: Barrett Razo on 07-29-2023 ALP [Catalytic activity/Vol] 77 U/L 45-117 [facility] ALT [Catalytic activity/Vol] 16 U/L 16-61 [facility] CO2 [Moles/Vol] 28.0 mmol/L 21.0-32.0 [facility] Globulin (S) [Mass/Vol] 2.9 g/dL 2.2-4.2 [facility] Urea nitrogen/Creatinine [Mass ratio] 13.4 mg/mg 10-20 [facility] Laboratory - Hematology and Cell countsOrdered By: Barrett Razo on 07-29-2023 Erythrocyte distribution width (RBC) [Entitic vol] 53.4 fL 35.1-43.9 [facility] Erythrocyte distribution width (RBC) [Ratio] 15.4 % 11.6-14.6 [facility] MCH (RBC) [Entitic mass] 30.2 pg 27.0-32.0 [facility] MCHC Auto (RBC) [Mass/Vol]Or dered By: Barrett Razo on 07-29-2023 MCHC (RBC) [Mass/Vol] 32.3 g/dL 32-36 [facility] No Panel InformationOrdered By: Barrett Razo on 07-29-2023 Estimated GFR (MDRD) Amer 82 mL/min >60 [facility] Comment on above: GFR Calc Estimated GFR (MDRD) Non-Af Amer 68 mL/min >60 [facility] Comment on above: Non- GFR Calc Vitamin D 25-Hydroxy 95.1 ng/mL [facility] Comment on above: Vitamin D 25(OH) Sta tus Range Deficiency <20 ng/mL (50nmol/L) Insufficiency 20 - 30 ng/mL (50 - 75 nmol/L) Sufficiency 30 - 100 ng/mL (75 - 250 nmol/L) Toxicity >100 ng/mL (>250 nmol/L) Platelets bldOrdered By: Gregorio Razo on 07-29-2023 Platelets (Bld) [#/Vol] 190 10*3/uL 150-450 [facility] Serum or plasma albumin juma urement (mass/volume)Ordered By: Barrett Razo on 07-29-2023 Albumin [Mass/Vol] 2.9 g/dL 3.2-5.0 [facility] Serum or plasma albumin/glob ulin mass ratioOrdered By: Barrett Razo on 07-29-2023 Albumin/Globulin [Mass ratio] 1.0 {ratio} 0.9-2.4 [facility] Serum or plasma calcium juma urement (mass/volume)Ordered By: Barrett Razo on 07-29-2023 Calcium [Mass/Vol] 8.4 mg/dL 8.5-10.1 [facility] Serum or plasma cholesterol in HDL measurement (mass/volume)Ordered By: Barrett Razo on 07-29-2023 Cholesterol in HDL [Mass/Vol] 55 mg/dL >40 [facility] Comment on above: The drugs N-Acetylcy steine and Metamizole may falsely depress this assay. Reference Range HDL <40 mg/dL Low HDL Cholesterol HDL >or= 60 mg/dL High HDL Cholesterol Serum or plasma cholesterol in VLDL measurement (mass/volume)Ordered By: Barrett Razo on 07-29-2023 Cholesterol in VLDL [Mass/Vol] 10 mg/dL 5-40 [facility] Serum or plasma creatinine m easurement (mass/volume)Ordered By: Barrett Razo on 07-29-2023 Creatinine [Mass/Vol] 1.12 mg/dL 0.70-1.30 [facility] Comment on above: The validity of the calculated GFR & GFRAA in patients over 70 years has not been determined. Clinical correlation is essential. Serum or plasma low density lipoprotein (LDL) cholesterol measurement (mass/volume)Ordered By: Barrett Razo on 07-29-2023 Cholesterol in LDL [Mass/Vol] 36 mg/dL 0-130 [facility] Serum or plasma urea nitroge n measurement (mass/volume)Ordered By: Barrett Razo on 07-29-2023 Urea nitrogen [Mass/Vol] 15 mg/dL 7-18 [facility] Thin prep Papanicolaou smear with manual screeningOrdered By: Barrett Razo on 07-29-2023 Thin prep Papanicolaou smear with manual screening 8 U/L 15-37 [facility] Thin prep Papanicolaou smear with manual screening 3 5-15 [facility] Basophil percentageon 2021 Bilirubin [Mass/Vol] 0.60 mg/dL 0.20-1.00 [facility] Work Phone: Comment on above: For patients on eltr ombopag therapy, use of Dimension [place] TBIL is not recommended. Chloride [Moles/Vol] 109 mmol/L 98-107 [facility] Work Phone: Cholesterol [Mass/Vol] 108 mg/dL <200 [facility] Work Phone: Comment on above: <200 mg/dL Desirable 200-240 mg/dL Borderline >240 mg/dL High Risk Glucose [Mass/Vol] 85 mg/dL 74-106 [facility] Work Phone: Potassium [Moles/Vol] 3.5 mmol/L 3.5-5.1 [facility] Work Phone: Protein [Mass/Vol] 5.8 g/dL 6.4-8.2 [facility] Work Phone: Sodium [Moles/Vol] 143 mmol/L 136-145 [facility] Work Phone: Triglyceride [Mass/Vol] 63 mg/dL <199 [facility] Work Phone: Comment on above: The drugs N-Acetylcy steine and Metamizole may falsely depress this assay.Serum Triglycerides Reference Interval Normal <150 mg/dL Borderline high 150 - 199 mg/dL High 200 - 499 mg/dL Very High > or = 500 mg/dL WBC (Bld) [#/Vol] 8.5 10*3/uL 4.4-11.0 [facility] Work Phone: Blood erythrocytes count (nu mber/volume)on 03-22-2022 RBC (Bld) [#/Vol] 4.45 10*6/uL 4.6-6.2 [facility] Work Phone: Blood hemoglobin measurement (mass/volume)on 03-22-2022 Hemoglobin (Bld) [Mass/Vol] 13.4 g/dL 13.0-16.5 [facility] Work Phone: Blood platelet mean volumeon 03-22-2022 Platelet mean volume (Bld) [Entitic vol] 10.6 fL 6.2-12.0 [facility] Work Phone: Determination of erythrocyte mean corpuscular volume (MCV)on 03-22-2022 MCV (RBC) [Entitic vol] 92.8 fL 80-94 [facility] Work Phone: Erythrocyte sedimentation ra antony 03-22-2022 ESR (Bld) [Velocity] mm/h 0-20 [facility] Work Phone: Hematocrit Auto (Bld) [Volum e fraction]on 03-22-2022 Hematocrit (Bld) [Volume fraction] 41.3 % 40-54 [facility] Work Phone: Laboratory - Chemistry and C hemistry - challengeon 03-22-2022 ALP [Catalytic activity/Vol] 49 U/L 45-117 [facility] Work Phone: ALT [Catalytic activity/Vol] 13 U/L 16-61 [facility] Work Phone: CO2 [Moles/Vol] 26.0 mmol/L 21.0-32.0 [facility] Work Phone: Globulin (S) [Mass/Vol] 2.8 g/dL 2.2-4.2 [facility] Work Phone: Magnesium [Mass/Vol] 2.3 mg/dL 1.6-2.6 [facility] Work Phone: Urea nitrogen/Creatinine [Mass ratio] 15.3 mg/mg 10-20 [facility] Work Phone: Laboratory - Hematology and Cell countson 03-22-2022 Erythrocyte distribution width (RBC) [Entitic vol] 51.2 fL 35.1-43.9 [facility] Work Phone: Erythrocyte distribution width (RBC) [Ratio] 14.9 % 11.6-14.6 [facility] Work Phone: MCH (RBC) [Entitic mass] 30.1 pg 27.0-32.0 [facility] Work Phone: MCHC Auto (RBC) [Mass/Vol]on 03-22-2022 MCHC (RBC) [Mass/Vol] 32.4 g/dL 32-36 [facility] Work Phone: No Panel Informationon 03-22 Estimated GFR (MDRD) Amer 103 mL/min >60 [facility] Work Phone: Comment on above: GFR Calc Estimated GFR (MDRD) Non-Af Amer 86 mL/min >60 [facility] Work Phone: Comment on above: Non- GFR Calc Thyroid Stimulating Hormone (TSH) 0.75 uIU/mL 0.358-3.74 [facility] Work Phone: Vitamin D 25-Hydroxy 14.8 ng/mL [facility] Work Phone: Comment on above: Vitamin D 25(OH) Sta tus Range Deficiency <20 ng/mL (50nmol/L) Insufficiency 20 - 30 ng/mL (50 - 75 nmol/L) Sufficiency 30 - 100 ng/mL (75 - 250 nmol/L) Toxicity >100 ng/mL (>250 nmol/L) Platelets bldon 03-22-2022 Platelets (Bld) [#/Vol] 160 10*3/uL 150-450 [facility] Work Phone: Serum or plasma albumin juma urement (mass/volume)on 03-22-2022 Albumin [Mass/Vol] 3.0 g/dL 3.2-5.0 [facility] Work Phone: Serum or plasma albumin/glob ulin mass ratioon 03-22-2022 Albumin/Globulin [Mass ratio] 1.1 {ratio} 0.9-2.4 [facility] Work Phone: Serum or plasma calcium juma urement (mass/volume)on 03-22-2022 Calcium [Mass/Vol] 8.8 mg/dL 8.5-10.1 [facility] Work Phone: Serum or plasma cholesterol in HDL measurement (mass/volume)on 03-22-2022 Cholesterol in HDL [Mass/Vol] 51 mg/dL >40 [facility] Work Phone: Comment on above: The drugs N-Acetylcy steine and Metamizole may falsely depress this assay. Reference Range HDL <40 mg/dL Low HDL Cholesterol HDL >or= 60 mg/dL High HDL Cholesterol Serum or plasma cholesterol in VLDL measurement (mass/volume)on 03-22-2022 Cholesterol in VLDL [Mass/Vol] 13 mg/dL 5-40 [facility] Work Phone: Serum or plasma cortisol deysi surement (mass/volume)on 03-22-2022 Cortisol [Mass/Vol] 10.20 ug/dL 3.44-22.45 [facility] Work Phone: Comment on above: Adult (AM) 5.27 - 22 .45 ug/dL Adult (PM) 3.44 - 16.76 ug/dLPlease note revised CORTISOL reference range effective 2019. Serum or plasma creatinine m easurement (mass/volume)on 03-22-2022 Creatinine [Mass/Vol] 0.92 mg/dL 0.70-1.30 [facility] Work Phone: Comment on above: The validity of the calculated GFR & GFRAA in patients over 70 years has not been determined. Clinical correlation is essential. Serum or plasma low density lipoprotein (LDL) cholesterol measurement (mass/volume)on 03-22-2022 Cholesterol in LDL [Mass/Vol] 44 mg/dL 0-130 [facility] Work Phone: Serum or plasma urea nitroge n measurement (mass/volume)on 03-22-2022 Urea nitrogen [Mass/Vol] 14 mg/dL 7-18 [facility] Work Phone: Thin prep Papanicolaou smear with manual screeningon 03-22-2022 Thin prep Papanicolaou smear with manual screening 7 U/L 15-37 [facility] Work Phone: Thin prep Papanicolaou smear with manual screening 8 5-15 [facility] Work Phone: Whole blood hemoglobin A1c/t otal hemoglobin ratio (mass fraction)on 03-22-2022 HbA1c (Bld) [Mass fraction] 5.2 % 3.8-5.6 [facility] Work Phone: Comment on above: Normal < 5.7 % Predi abetic 5.7 - 6.4 % Diabetic >or= 6.5 % Please note range changes. CBC with Auto Differentialon 03-17-2022 Absolute Baso # 0.1 10*3/uL 0 - 0.2 10*3/uL [facility] Absolute Neut # 6.0 10*3/uL 1.8 - 7 10*3/uL [facility] MCHC (RBC) [Mass/Vol] 34.0 % 32 - [...] Real-time, RT-PCR This assay was developed by [employer] and distributed under an Emergency Use Authorization (EUA) granted by the FDA for the qualitative detection of nucleic acids from SARS-CoV-2, Influenza A, Influenza B, and Respiratory Syncytial Virus. Provider and patient fact sheets can be found at https://www.fda.gov/ media/429767/downloa d and https://www.fda.gov/ media/589221/downloa d. [facility] SARS-CoV-2 (COVID-19) RNA VERENICE+probe Ql (Unsp spec) Not detected [facility] Test Performed by [facility], [address] [place], [place] [id number] [place] [address] LAB [facility] CT Head WO Contraston 2021 Patient Name: ANSON JIMENEZ Computed Tomography ACCESSION EXAM DATE/TIME PROCEDURE ORDERING PROVIDER [id number] 03/17/2022 13:[address] Head or Brain w/o JUSTYN MOORE DANIEL M Contrast CPT code 65050 Reason For Exam (CT Head or Brain w/o Contrast) weakness, falls Report Examination: CT head Technique: Axial CT images of the head were obtained without IV contrast at 5 mm intervals Indication: weakness, falls Findings: Lxab-wx-gmajjccn diffuse parenchymal volume loss is noted, evidence [...] KRIKOR Transcribed Date and Time: 03/17/2022 1:36 [facility] Dann Zamudio MD - 03/17/2022 Patient Name: ANSON JIMENEZ Computed Tomography ACCESSION EXAM DATE/TIME PROCEDURE ORDERING PROVIDER [id number] 03/17/2022 13:[address] Head or Brain w/o JUSTYN MOORE DANIEL M Contrast CPT code 39980 Reason For Exam (CT Head or Brain w/o Contrast) weakness, falls Report Examination: CT head Technique: Axial CT images of the head were obtained without IV contrast at 5 mm intervals Indication: weakness, falls Findings: Oblr-qh-hcjustxp diffuse parenchymal volume loss is noted, evidence [...] Head or Brain w/o Contrast [id number] Comput[facility] Tomography ACCESSION EXAM DATE/TIME PROCEDURE ORDERING PROVIDER [id number] 03/17/2022 13:[address] Head or Brain w/o JUSTYN MOORE DANIEL M Contrast CPT code 89534 Reason For Exam (CT Head or Brain w/o Contrast) weakness, falls Report Examination: CT head Technique: Axial CT images of the head were obtained without IV contrast at 5 mm intervals Indication: weakness, falls Findings: Netn-dy-oceeaxtv diffuse parenchymal volume loss is noted, evidence [...] KRIKOR Transcribed Date and Time: 03/17/2022 1:[address] [facility] [address] LUMBAR SPINE WO CONTRASTo n 03-17-2022 Patient Name: ANSON JIMENEZ Computed Tomography ACCESSION EXAM DATE/TIME PROCEDURE ORDERING PROVIDER [id number] 03/17/2022 13:[address] Spine Lumbar w/o JUSTYN MOORE DANIEL M Contrast CPT code 59279 Reason For Exam (CT Spine Lumbar w/o [...] at L1/L2 and L2/L3 with at least ezup-oo-ddsujkan foraminal narrowing at L2/L3. Extensive aortoiliac calcification is present. Impression: Advanced degenerative changes with multilevel spondylolisthesis. Bilateral pars interarticularis defects are present at L5/S1. Report Dictated on --- Final --- Dictating Physician: MD ZAMUDIO KRIKOR Signed Date and Time: 03/17/2022 1:33 pm Signed by: MD ZAMUDIO KRIKOR Transcribed Date and Time: 03/17/2022 1:34 [facility] Dann Zamudio MD - 03/17/2022 Patient Name: ANSON JIMENEZ Computed Tomography ACCESSION EXAM DATE/TIME PROCEDURE ORDERING PROVIDER [id number] 03/17/2022 13:[address] Spine Lumbar w/o OSCARJUSTYNNILS Contrast CPT code 21149 Reason For Exam (CT Spine Lumbar w/o [...] at L1/L2 and L2/L3 with at least modh-hr-wkibqgks foraminal narrowing at L2/L3. Extensive aortoiliac calcification is present. Impression: Advanced degenerative changes with multilevel spondylolisthesis. Bilateral pars interarticularis defects are present at L5/S1. Report Dictated on --- Final --- Dictating Physician: MD ZAMUDIO KRIKOR Signed Date and Time: 03/17/2022 1:33 pm Signed by: MD ZAMUDIO KRIKOR Transcribed Date and Time: 03/17/2022 1:34 [facility] Work Phone: [facility] Work Phone: CT Spine Lumbar w/o Contrast on 03-17-2022 CT Spine Lumbar w/o Contrast Patient Name: ANSON JIMENEZ Computed Tomography ACCESSION EXAM DATE/TIME PROCEDURE ORDERING PROVIDER [id number] 03/17/2022 13:[address] Spine Lumbar w/o JUSTYN MOORENILS Contrast CPT code 40607 Reason For Exam (CT Spine Lumbar w/o [...] at L1/L2 and L2/L3 with at least lpja-sa-npcgytlt foraminal narrowing at L2/L3. Extensive aortoiliac calcification is present. Impression: Advanced degenerative changes with multilevel spondylolisthesis. Bilateral pars interarticularis defects are present at L5/S1. Report Dictated on Final Dictating Physician: MD ZAMUDIO KRIKOR Signed Date and Time: 03/17/2022 1:33 pm Signed by: MD ZAMUDIO KRIKOR Transcribed Date and Time: 03/17/2022 1:34 Normal [facility] Comp Metabolic Panelon 03-17 ALP [Catalytic activity/Vol] 55 U/L Normal 38-126 [facility] Comment on above: Performed By: #### H EMDF, TROPN, CMP3 #### [facility] [address] [place] [address] ALT [Catalytic activity/Vol] 10 U/L Normal 0-49 [facility] Comment on above: Result Comment: The ALT test is performed by an updated assay method. Please note that the reference intervals have been changed and are now sex specific. Performed By: #### H EMDF, TROPN, CMP3 #### [facility] [address] [place] [address] Anion gap [Moles/Vol] 5 mmol/L Normal 3-13 [facility] [facility] Comment on above: Performed By: #### H EMDF TROPN, CMP3 #### [facility] [address] [place] [address] AST [Catalytic activity/Vol] 16 U/L Normal 15-46 [facility] Comment on above: Performed By: #### H EMDF, TROPN, CMP3 #### [facility] [address] [place] [address] Bilirubin [Mass/Vol] 1.4 mg/dL High 0.2-1.3 [facility] Comment on above: Performed By: #### H EMDF, TROPN, CMP3 #### [facility] [address] [place] [address] Calcium [Mass/Vol] 8.7 mg/dL Normal 8.4-10.4 [facility] Comment on above: Performed By: #### H EMDF, TROPN, CMP3 #### [facility] [address] [place] [address] CO2 [Moles/Vol] 25 mmol/L Normal 22-30 [facility] Comment on above: Performed By: #### H EMDF, TROPN, CMP3 #### [facility] [address] [place] [address] Glucose [Mass/Vol] 95 mg/dL Normal 70-100 [facility] Comment on above: Performed By: #### H EMDF, TROPN, CMP3 #### [facility] [address] [place] [address] Protein [Mass/Vol] 6.3 g/dL Normal 6.3-8.2 [facility] Comment on above: Performed By: #### H EMDF, TROPN, CMP3 #### [facility] [address] [place] [address] Urea nitrogen [Mass/Vol] 12 mg/dL Normal 7-17 [facility] Comment on above: Performed By: #### H EMDF, TROPN, CMP3 #### [facility] [address] [place] [address] Creatinine [Mass/Vol] 1.10 mg/dL Normal 0.52-1.25 [facility] Comment on above: Performed By: #### H BETHANY NATHAN CMP3 #### [facility] [address] [place] [address] GFR/1.73 sq M.predicted among blacks MDRD (S/P/Bld) [Vol rate/Area] 75.3 mL/min/{1.73_m2} Normal >60 [facility] Comment on above: Performed By: #### H BETHANY NATHAN, CMP3 #### [facility] [address] [place] [address] GFR/1.73 sq M.predicted among non-blacks MDRD (S/P/Bld) [Vol rate/Area] 65.0 mL/min/{1.73_m2} Normal >60 [facility] Comment on above: Result Comment: KDIG [...] creatinine secretion. Performed By: #### H BETHANY NATHAN, CMP3 #### [facility] [employer] [facility] [address] [place] [address] Potassium [Moles/Vol] 4.2 mmol/L Normal 3.5-5.1 [facility] Comment on above: Performed By: #### H BETHANY NATHAN, CMP3 #### [facility] [address] [place] [address] Sodium [Moles/Vol] 140 mmol/L Normal 135-145 [facility] Comment on above: Performed By: #### H BETHANY NATHAN, CMP3 #### [facility] [address] [place] [address] Albumin [Mass/Vol] 3.8 g/dL Normal 3.5-5.0 [facility] Comment on above: Performed By: #### H BETHANY NATHAN, CMP3 #### [facility] [address] [place] [address] Chloride [Moles/Vol] 111 mmol/L High 98-107 [facility] Comment on above: Performed By: #### H EMDBETHANY Chung, CMP3 #### [facility] [address] [place] [address] Comprehensive Metabolic Pane samy 03-17-2022 Albumin [Mass/Vol] 3.8 g/dL 3.5 - 5 g/dL [facility] ALP (Bld) [Catalytic activity/Vol] 55 U/L 38 - 126 U/L [facility] ALT [Catalytic activity/Vol] 10 U/L 0 - 49 U/L [facility] Comment on above: The ALT test is [...] - 1.25 mg/dL [facility] EGFR IF NonAfrican Belizean 65.0 mL/min 60 - PINF mL/min [facility] Comment on above: KDIGO guidelines pro vide [...] conjunction with nurse practitioner or physician assistant professor or resident physician. Appropriate PPE including n 95, gown, gloves, goggles where worn when appropriate with this patient. I personally saw the patient and performed a substantive portion of the visit including all aspects of medical decision making. Patient presents with weakness of right leg. Over a month. Given prednisone and Cymbalta. Not helping. He supposed to go to [facility] [place] where his is residing he is having [...] for clarification. Ant Islas MD 03/17/22 1507 [facility] ED Provider Note [facility] eMERGENCY dEPARTMENT eNCOUnter Pt Name: Anson Jimenez Birthdate 1945 Date of evaluation: 03/17/2022 Provider: Nils Moore, LIFE MANAGEMENT TEACHER - COOK APPRENTICE PASTRY This patient was seen in conjunction with Dr. Islas CHIEF COMPLAINT No chief complaint on file. HISTORY OF PRESENT ILLNESS (Location/Symptom, Timing/Onset,Context /Setting, Quality, Duration, Modifying Factors, Severity) Note limiting factors. HPI Anson Jimenez is a 76 y.o. male who presents to the emergency department with right leg weakness. The patient states he is having right leg weakness this been going on for over a month. States he saw his PCP was given prednisone and Cymbalta. In 3 days he supposed to go to [facility] where his is currently residing because he [...] FOR THE SURGERY ON 02/10/21 AT [facility] [place] Cubital tunnel syndrome, bilateral SCHEDULED FOR THE RIGHT SIDE SURGERY [facility]10[facility] Current every day smoker GERD (gastroesophageal reflux disease) High cholesterol SURGICALHISTORY Past Surgical History: Procedure Laterality Date BACK SURGERY 10 years ago MICRODISECTOMY AT [facility] CARPAL TUNNEL RELEASE Right 02/10/2021 Right [...] Straight leg (more content not included)... 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1945 Requested By: NILS MOORE Order Number: [id number] Reading : Ant Islas Measurements Intervals [place] Rate: 66 P: 18 IA: 152 QRS: -27 QRSD: 104 T: -22 QT: 420 QTc: 441 Interpretive Statements SINUS RHYTHM LEFT VENTRICULAR HYPERTROPHY ABNORMAL T, CONSIDER ISCHEMIA, INFERIOR LEADS BASELINE WANDER IN LEAD(S) V5 Compared to ECG 02/03/2021 09:32:14 Left ventricular hypertrophy now present T-wave abnormality still present Electronically Signed On 03-17-2022 12:50:03 EDT by Ant Islas [facility] Ant Islas MD - 03/17/2022 [facility] Test Date: 2022-03-17 Pat Name: ANSON POWERLAR Department: 2AED Room: 31 Gender: M 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1945 Requested By: NILS MOORE Order Number: [id number] Reading : Ant Islas Measurements Intervals [place] Rate: 66 P: 18 IA: 152 QRS: -27 QRSD: 104 T: -22 QT: 420 QTc: 441 Interpretive Statements SINUS RHYTHM LEFT VENTRICULAR HYPERTROPHY ABNORMAL T, CONSIDER ISCHEMIA, INFERIOR LEADS BASELINE WANDER IN LEAD(S) V5 Compared to ECG 02/03/2021 09:32:14 Left ventricular hypertrophy now present T-wave abnormality still present Electronically Signed On 03-17-2022 12:50:03 EDT by Ant Islas [facility] Work Phone: EKG 12 Lead - Chest PainOrde red By: Ant Islas on 03-17-2022 [employer] Work Phone: Hemogram w/ [employer] 03-17 Abs Baso Cnt 0.1 10*3/uL Normal 0.0-0.2 [facility] Comment on above: Performed By: #### H EMDF, TROPN, CMP3 #### [email or web address] [address] [place] [address] Abs Neutrophile Cnt 6.0 10*3/uL Normal 1.8-7.0 [facility] Comment on above: Performed By: #### H EMDF, TROPN, CMP3 #### [email or web address] [facility] [address] [place] [address] Basophils/100 WBC (Bld) 1.0 % Normal 0.0-2.0 [facility] Comment on above: Performed By: #### H EMDF, TROPN, CMP3 #### [facility] [employer] [address] [place] [address] Eosinophils (Bld) [#/Vol] 0.1 10*3/uL Normal 0.0-0.5 [facility] Comment on above: Performed By: #### H EMDF, TROPN, CMP3 #### [employer] [address] [place] [address] Eosinophils/100 WBC (Bld) 1.0 % Normal 1.0-6.0 [facility] Comment on above: Performed By: #### H EMDF, TROPN, CMP3 #### [email or web address] [address] [place] [address] Erythrocyte distribution width (RBC) [Ratio] 15.8 % High 11.5-14.5 [facility] Comment on above: Performed By: #### H EMDF, TROPN, CMP3 #### [employer] [address] [place] [address] Granulocytes/100 WBC (Bld) 77.0 % Normal 40.0-80.0 [facility] Comment on above: Performed By: #### H EMDF, TROPN, CMP3 #### [facility] [address] [place] [address] Hematocrit (Bld) [Volume fraction] 41.6 % Normal 40.0-52.0 [facility] Comment on above: Performed By: #### H EMDF, TROPN, CMP3 #### [facility] [address] [place] [address] Hemoglobin (Bld) [Mass/Vol] 14.1 g/dL Normal 13.0-18.0 [facility] Comment on above: Performed By: #### H EMDF, TROPN, CMP3 #### [facility] [address] [place] [address] Lymphocytes (Bld) [#/Vol] 1.1 10*3/uL Normal 1.0-4.3 [facility] Comment on above: Performed By: #### H EMDF, TROPN, CMP3 #### [facility] [address] [place] [address] Lymphocytes/100 WBC (Bld) 14.6 % Low 20.0-40.0 [facility] Comment on above: Performed By: #### H EMDF, TROPN, CMP3 #### [facility] [address] [place] [address] MCH (RBC) [Entitic mass] 30.7 pg Normal 26.0-34.0 [facility] Comment on above: Performed By: #### H EMDF, TROPN, CMP3 #### [facility] [address] [place] [address] MCHC 34.0 % Normal 32.0-36.0 [facility] Comment on above: Performed By: #### H EMDF, TROPN, CMP3 #### [facility] [address] [place] [address] MCV (RBC) [Entitic vol] 90.2 fL Normal 80.0-98.0 [facility] Comment on above: Performed By: #### H EMDF, TROPN, CMP3 #### [facility] [address] [place] [address] Monocytes (Bld) [#/Vol] 0.5 10*3/uL Normal 0.0-0.8 [facility] Comment on above: Performed By: #### H EMDBETHANY Chung, CMP3 #### [facility] [address] [place] [address] Monocytes/100 WBC (Bld) 6.4 % Normal 2.0-10.0 [facility] Comment on above: Performed By: #### H EMDBETHANY Chung, CMP3 #### [facility] [address] [place] [address] Platelet mean volume (Bld) [Entitic vol] 8.0 fL Normal 7.4-12.4 [facility] Comment on above: MPV is a calculated measurement using platelet volume ratio. Result Comment: MPV is a calculated measurement using platelet volume ratio. Performed By: #### H BETHANY NATHAN, CMP3 #### [facility] [address] [place] [address] Platelets (Bld) [#/Vol] 162 10*3/uL Normal 140-440 [facility] Comment on above: Performed By: #### H EMDBETHANY Chung, CMP3 #### [facility] [address] [place] [address] RBC (Bld) [#/Vol] 4.61 10*6/uL Normal 4.40-5.90 [facility] Comment on above: Performed By: #### H EMDFGEN, CMP3 #### [facility] [address] [place] [address] WBC (Bld) [#/Vol] 7.8 10*3/uL Normal 3.6-10.7 [facility] Comment on above: Performed By: #### H EMDFGEN, CMP3 #### [facility] [address] [place] [address] No Panel Informationon 03-17 Interpretation and review of laboratory results Abnormal [facility] Test Performed by [facility], [facility] [address] [place], [place] [address] [facility] Radiology Study observation (narrative) [facility] Work Phone: SARS-CoV-2, Flu A/B and RSVo n 07-20-2022 SARS-CoV-2 (COVID-19) RNA VERENICE+probe Ql (Unsp spec) SARS-CoV-2 --> Status: F Not Detected. Flu A PCR --> Status: F Not Detected. Flu B PCR --> Status: F Not Detected. RSV PCR --> Status: F Not Detected. Expected Result: Not Detected _ Method: Real-time, RT-PCR This assay was developed by [employer] and distributed under an Emergency Use Authorization (EUA) granted by the FDA for the qualitative detection of nucleic acids from SARS-CoV-2, Influenza A, Influenza B, and Respiratory Syncytial Virus. Provider and patient fact sheets can be found at https://www.fda.gov/ media/182481/downloa d and https://www.fda.gov/ media/436575/downloa d. Expected Result: Not Detected _ Method: Real-time, RT-PCR This assay was developed by [employer] and distributed under an Emergency Use Authorization (EUA) granted by the FDA for the qualitative detection of nucleic acids from SARS-CoV-2, Influenza A, Influenza B, and Respiratory Syncytial Virus. Provider and patient fact sheets can be found at https://www.fda.gov/ media/853493/downloa d and https://www.fda.gov/ media/392309/downloa d. Normal [facility] Comment on above: Performed By: #### C VFLR #### [facility] [address] [place] [address] , [address] Troponin Ion 03-17-2022 Troponin I.cardiac [Mass/Vol] ng/mL Normal 0.000-0.034 [facility] Comment on above: Result Comment: . Performed By: #### H EMDF, TROPN, CMP3 #### [facility] [address] [place] [address] Troponin x1on 03-17-2022 Troponin I.cardiac [Mass/Vol] ng/mL 0 - 0.034 ng/mL [facility] Comment on above: . Test Performed by [facility], [address] [place], [place] [address] [facility] CBCOrdered By: Alonzo cervantes 02-03-2021 Hematocrit (Bld) [Volume fraction] 41.8 % 40.0 - 52.0 % [facility] Work Phone: Hemoglobin.gastrointest inal spec 1 Ql (Stl) 13.9 g/dL 13.0 - 18.0 g/dL [employer] Work Phone: Interpretation and review of laboratory results Abnormal [facility] Work Phone: MCH (RBC) [Entitic mass] 30.4 pg 26.0 - 34.0 pg [employer] Work Phone: MCHC (RBC) [Mass/Vol] 33.3 % 32.0 - 36.0 % [employer] Work Phone: MCV (RBC) [Entitic vol] 91.4 fL 80.0 - 98.0 fL [employer] Work Phone: Platelet distribution width (Bld) [Ratio] 15.8 % High 11.5 - 14.5 % [facility] Work Phone: Platelet mean volume (Bld) [Entitic vol] 7.5 fL 7.4 - 10.4 fL [facility] Work Phone: Platelets (Bld) [#/Vol] 188 10*3/uL 140 - 440 10*3/uL [facility] Work Phone: RBC (Bld) [#/Vol] 4.57 10*6/uL 4.40 - 5.9 0 10*6/uL [facility] Work Phone: WBC (Bld) [#/Vol] 6.3 10*3/uL 3.6 - 10.7 10*3/uL [facility] Work Phone: Test Performed by [employer] [facility], [address] [place] [address]. [place], [place] [address] [facility] Work Phone: [facility] Work Phone: Comprehensive Metabolic Pane lOrdered By: Alonzo Zheng on 02-03-2021 Albumin [Mass/Vol] 4.0 g/dL 3.5 - 5.0 g/dL [facility] Work Phone: ALP (Bld) [Catalytic activity/Vol] 66 U/L 38 - 126 U/L [facility] Work Phone: ALT [Catalytic activity/Vol] 12 U/L 0 - 49 U/L [facility] Work Phone: Comment on above: The ALT test is perf ormed by an updated assay method. Please note that the reference intervals have been changed and are now sex specific. Anion gap [Moles/Vol] 4 mmol/L 3 - 13 mmol/L [facility] Work Phone: AST [Catalytic activity/Vol] 18 U/L 15 - 46 U/L [facility] Work Phone: Bilirubin [Mass/Vol] 0.7 mg/dL 0.2 - 1 .3 mg/dL [facility] Work Phone: Calcium [Mass/Vol] 9.3 mg/dL 8.4 - 10. 4 mg/dL [facility] Work Phone: Chloride [Moles/Vol] 109 mmol/L High 98 - 10 7 mmol/L [facility] Work Phone: CO2 [Moles/Vol] 25 mmol/L 22 - 30 mmol/L [facility] Work Phone: Creatinine [Mass/Vol] 0.97 mg/dL 0.52 - 1.25 mg/dL [facility] Work Phone: EGFR IF NonAfrican Belizean 76.2 mL/min >60 [facility] Work Phone: Comment on above: KDIGO guidelines [...] fraction] 6.6 g/dL 6.3 - 8.2 g/dL [facility] Work Phone: GFR/1.73 sq M.predicted among blacks MDRD (S/P/Bld) [Vol rate/Area] 88.3 mL/min/{1.73_m2} >60 [facility] Work Phone: Glucose [Mass/Vol] 98 mg/dL 70 - 100 mg/dL [facility] Work Phone: Interpretation and review of laboratory results Abnormal [facility] Work Phone: Potassium [Moles/Vol] 4.5 mmol/L 3.5 - 5.1 mmol/L [facility] Work Phone: Sodium [Moles/Vol] 138 mmol/L 135 - 145 mmol/L [facility] Work Phone: Urea nitrogen (BldV) [Mass/Vol] 11 mg/dL 7 - 20 mg/dL [facility] Work Phone: Test Performed by [employer] [facility], [address] [place] [id number] [place], [place] [address] Work Phone: [facility] Work Phone: EMG REPORTon 11-28-2020 Josh Sanz MD - 11/28/2020 3:19 PM EDT PATIENT: ANSON JIMENEZ DATE OF SERVICE: 11/28/2020 ORDER NUMBER: DATE OF : 1945 AGE: 75 ADMITTING PHYSICIAN: Eric Mcdermott DO ATTENDING PHYSICIAN: Eric Mcdermott DO DICTATING PHYSICIAN: Josh Sanz MD EMG REFERRING PHYSICIAN: Angus FaulknerOCeline TEST #: [id number] and [id number] NERVE CONDUCTION STUDIES AND ELECTROMYOGRAPHY OF BOTH UPPER EXTREMITIES LOCATION: Testing was conducted at [facility] as an outpatient. FINDINGS: Sensory nerve conduction [...] or distal to the wrist, with mixed [id number] relative severity. The nerve conduction studies indicated [...] Clinical correlation is advised. Gabi Job ID: [id number] DOD:11/28/2020 01:42 P MERARI/dg DOT:11/28/2020 03:19 P Job Number: [id number] Document Number: [id number] ###### cc: Eric Mcdermott, DO Family Practice - [address] Work Phone: VL ARTERIAL PVR LOWER WO EXE RCISEon 05-03-2020 [facility] Multilevel Lower Extremity Arterial Evaluation Report Ordering Physician: Desi Cortez Jet Inspector: Lazaro Hatfield Interpreting Physician: Miguel Simmons MD Location: [facility] Indications: PVD. Conclusions 1. Right resting JOANNA [...] supine position. Images were obtained using a [employer] vascular ultrasound machine. Arterial pressure indices: + [...] signed by Miguel Simmons MD 05/03/2020 10:02 [employer] [place], [place] Wandy Horowitz Incoming Cardiology Results From Shanice/Alfredo - 05/03/2020 10:02 AM EDT [facility] Multilevel Lower Extremity Arterial Evaluation Report Ordering Physician: Desi Cortez Jet Inspector: Lazaro Htafield Interpreting Physician: Miguel Simmons MD Location: [facility] Indications: PVD. Conclusions 1. Right resting JOANNA [...] supine position. Images were obtained using a [employer] vascular ultrasound machine. Arterial pressure indices: + [...] signed by Miguel Simmons MD 05/03/2020 10:02 [place], [place] [facility]2018 [facility] Letter Jagruti Cruz [id number] [place], [place] [address]Mhown: [phone]: [phone]: 01/09/2018Provider: HELEN Aguirreatient Name: Anson EastOB: 1945Mitul Muhammad, SPRINKLER REPAIR TECHNICIAN,Thank you for referring Anson for a Screening Colonoscopy. We have checkedthe [...] time concerning this matter.Sincerely,Hector Cruz MD Normal [facility] Vital Signs Date Time Vital Sign Value Performing Clinician Marquitai mata 03-17-2022 20:32-0400 Diastolic blood pressure 73 mm[Hg] Ant Islas MD Work Phone: [facility] 03-17-2022 20:32-0400 Heart rate 80 /min Ant Islas MD Work Phone: [facility] 03-17-2022 20:32-0400 SaO2% (BldA) [Mass fraction] 100 % Ant Islas MD Work Phone: [facility] 03-17-2022 20:32-0400 Systolic blood pressure 122 mm[Hg] Ant Islas MD Work Phone: [facility] 03-17-2022 12:07-0400 Body mass index (BMI) [Ratio] 26.5 kg/m2 Ant Islas MD Work Phone: [facility] 03-17-2022 12:07-0400 Body temperature 97.7 [degF] Ant Islas MD Work Phone: [facility] 03-17-2022 12:07-0400 Body weight 86.18 kg Ant Islas MD Work Phone: [facility] 03-17-2022 12:07-0400 Respiratory rate 20 /min Ant Islas MD Work Phone: [facility] 02-10-2021 11:45-0400 Diastolic blood pressure 70 mm[Hg] Alonzo Zheng MD Work Phone: [facility] Work Phone: 02-10-2021 11:45-0400 Heart rate 72 /min Alonzo Zheng MD Work Phone: [facility] Work Phone: 02-10-2021 11:45-0400 Respiratory rate 21 /min Alonzo Zheng MD Work Phone: [facility] Work Phone: 02-10-2021 11:45-0400 SaO2% (BldA) [Mass fraction] 97 % Alonzo Zheng MD Work Phone: [facility] Work Phone: 02-10-2021 11:45-0400 Systolic blood pressure 111 mm[Hg] Alonzo Zheng MD Work Phone: [facility] Work Phone: 02-10-2021 11:21-0400 Body temperature 97.39 [degF] Alonzo Zheng MD Work Phone: [facility] Work Phone: 02-10-2021 08:16-0400 Body height 175.3 cm Alonzo Zheng MD Work Phone: [facility] Work Phone: 02-10-2021 08:16-0400 Body mass index (BMI) [Ratio] 29.14 kg/m2 Alonzo Zheng MD Work Phone: [facility] Work Phone: 02-10-2021 08:16-0400 Body weight 89.5 kg Alonzo Zheng MD Work Phone: [facility] Work Phone: 02-03-2021 09:27-0400 Body height 175.3 cm Alonzo Zheng MD Work Phone: [facility] Work Phone: 02-03-2021 09:27-0400 Body mass index (BMI) [Ratio] 30.29 kg/m2 Alonzo Zheng MD Work Phone: [facility] Work Phone: 02-03-2021 09:27-0400 Body weight 93.04 kg Alonzo Zheng MD Work Phone: [facility] Work Phone: 02-03-2021 09:25-0400 Body temperature 98.1 [degF] Alonzo Zheng MD Work Phone: [facility] Work Phone: 02-03-2021 09:25-0400 Diastolic blood pressure 83 mm[Hg] Alonzo Zheng MD Work Phone: [facility] Work Phone: 02-03-2021 09:25-0400 Heart rate 66 /min Alonzo Zheng MD Work Phone: [facility] Work Phone: 02-03-2021 09:25-0400 Respiratory rate 16 /min Alonoz Zheng MD Work Phone: [employer] Work Phone: 02-03-2021 09:25-0400 SaO2% (BldA) [Mass fraction] 99 % Alonzo Zheng MD Work Phone: [employer] Work Phone: 02-03-2021 09:25-0400 Systolic blood pressure 154 mm[Hg] Alonzo Zheng MD Work Phone: [employer] Work Phone: Encounters Encounter Date Encounter Type Care Provider Facility Start: 07-03-2025 ambulatory Barrett MADRIGAL Facil ity:[facility] Start: 01-28-2025 ambulatory Barrett MADRIGAL Facil ity:[facility] Start: 12-03-2024 End: 12-03-2024 ambulatory Barrett MADRIGAL [facility] Work Phone: Start: 12-03-2024 End: 12-03-2024 Departed Referred Barrett Razo -[facility] [address] Start: 12-03-2024 End: 12-03-2024 ambulatory Barrett MADRIGAL Facility:[facility] Start: 11-28-2024 End: 11-28-2024 Departed Referred Barrett Razo -[facility] [address] Start: 11-28-2024 End: 11-28-2024 ambulatory Barrett MADRIGAL Facility:[facility] Start: 07-30-2024 End: 07-30-2024 ambulatory Barrett MADRIGAL Facility:[facility] Start: 11-28-2023 End: 11-28-2023 ambulatory [facility] Work Phone: Start: 11-28-2023 End: 11-28-2023 Departed Referred [facility] [address] Start: 07-29-2023 End: 07-29-2023 ambulatory [facility] Work Phone: Start: 07-29-2023 End: 07-29-2023 Departed Referred [facility] [address] Start: 03-22-2022 End: 03-22-2022 Departed Referred [facility] [address] Start: 03-17-2022 End: 03-17-2022 Emergency department patient visit Ant Islas MD Work Phone: [facility] Comment on above: Right leg weakness ( Primary Dx); Frequent falls; Degenerative disc disease, lumbar Start: 02-10-2021 End: 02-10-2021 Subsequent hospital visit by physician Alonzo Zheng MD Work Phone: [facility] Comment on above: Carpal tunnel syndro me of right wrist (Primary Dx) Start: 02-03-2021 End: 02-03-2021 Subsequent hospital visit by physician Alonzo Zheng MD Work Phone: [facility] Pre-Admit Testing Comment on above: Arrived Start: 11-28-2020 End: 11-28-2020 Subsequent hospital visit by physician Eric Mcdermott Work Phone: [facility] Neuro Comment on above: Arrived Start: 05-03-2020 End: 05-03-2020 Subsequent hospital visit by physician Desi Cortez Work Phone: [facility] Vascular Lab Comment on above: Arrived Start: 04-24-2019 End: 04-24-2019 Subsequent hospital visit by physician Eric Mcdermott Work Phone: [facility] Radiology Procedures Date Procedure Procedure Detail Performing Clinician Start: 03-17-2022 COVID-19, FLU A/B, A ND RSV COMBO Nils Moore LIFE MANAGEMENT TEACHER - COOK APPRENTICE PASTRY Work Phone: Start: 03-17-2022 Ct head/brain w/o co ntrast material Nils Moore LIFE MANAGEMENT TEACHER - COOK APPRENTICE PASTRY Work Phone: Start: 03-17-2022 Ct lumbar spine w/o contrast material Nils Moore LIFE MANAGEMENT TEACHER - COOK APPRENTICE PASTRY Work Phone: Start: 03-17-2022 Comprehensive metabo lic panel Nils Millan CNP Work Phone: Start: 03-17-2022 Ecg routine ecg w/le ast 12 lds w/i&r Nils Millan CNP Work Phone: Start: 02-03-2021 Comprehensive metabo lic panel Jersonbilly Storm MD Work Phone: Start: 02-03-2021 Ecg routine ecg w/le ast 12 lds w/i&r Jerson Edvin Storm MD Work Phone: Start: 11-28-2020 EMG REPORT Josh workman Work Phone: Start: 05-03-2020 Non-invasive physiol ogic study extremity 3 levls Desi Cortez Work Phone: Plan of Treatment Date Care Activity Detail Author Start: 04-29-2022 Influenza vaccination Flu vaccine (# 1) [facility] Start: 03-11-2021 COVID-19 Vaccine (2 - Booster for Daniel series) COVID-19 Vaccine (2 - Booster for Daniel series) [facility] Start: 02-26-2021 End: 02-26-2021 Patient encounter procedure 02/26/2021 Office Visit Orthopedic Surgery Alonzo Zheng MD [address] [place] [address] [phone] [facility] [place] Start: 02-10-2021 End: 02-10-2021 Patient encounter procedure 02/10/2021 Appointment General Surgery Alonzo Zheng MD [address] [place] [address] [phone] [facility] [place] [facility] Start: 04-29-2020 Influenza vaccination Flu vaccine (# 1) [place], [place] Start: 05-31-2019 Annual Wellness Visi t (AWV) Annual Wellness Visit (AWV) [place], [place] Start: 04-29-2019 Influenza vaccination Flu vaccine (# 1) [place] Start: 12-07-2017 Pneumococcal 65+ yea rs Vaccine (2 - PCV) Pneumococcal 65+ years Vaccine (2 - PCV) [facility] Start: 2011 Abdominal aortic aneurysm screening AAA screen [facility] Start: 2011 Pneumococcal 65+ yea rs Vaccine (1 of 1 - PPSV23) Pneumococcal 65+ years Vaccine (1 of 1 - PPSV23) [place], [place] Start: 2011 Pneumococcal 65+ yea rs Vaccine (1 of 2 - PCV13) Pneumococcal 65+ years Vaccine (1 of 2 - PCV13) [place] Start: 1996 Screening for malign ant neoplasm of colon Colon cancer screen colonoscopy [place], [place] Start: 1996 Shingles Vaccine (1 of 2) Shingles Vaccine (1 of 2) [facility] Start: 1991 Screening for malign ant neoplasm of colon [facility] Start: 1986 Lipid panel Lipid screen [place], [place] Start: 1965 DTaP/Tdap/Td vaccine (1 - Tdap) DTaP/Tdap/Td vaccine (1 - Tdap) [facility] Start: 1964 Hepatitis C screening Hepatitis C sc reen [facility] Start: 1962 COVID-19 Vaccine (1) COVID-19 Vaccin e (1) [facility] Work Phone: Start: 1958 Depression Screen Depression Screen [facility] Start: 1956 Lipid panel [facility] Start: 1946 Abdominal aortic aneurysm screening AAA screen [facility] Work Phone: Start: 1946 Annual Wellness Visi t (AWV) Annual Wellness Visit (AWV) [facility] Start: 1946 Hepatitis C screening Hepatitis C sc reen [place], [place] Blood glucose - POCT [facility] Work Phone: Comment on above: As Needed until disc ontinued starting 02/10/2021 EKG 12 Lead EKG 12 Lead ECG Routine 02/03/2021 9:32 AM EDT [facility] Work Phone: End: 02-10-2021 Intermittent pulse oximetry Pulse Oximetry Spot Check Respiratory Care Routine One Time for 1 Occurrences starting 02/10/2021 until 02/10/2021 [facility] Work Phone: Comment on above: One Time for 1 Occur rences starting 02/10/2021 until 02/10/2021 Oxygen therapy [[facility] Data Set] Initiate Oxygen Therapy Protocol Respiratory Care Routine Daily until discontinued starting 02/10/2021 [facility] Work Phone: Comment on above: Daily until disconti nued starting 02/10/2021 Spirometry panel Incentive enrrique metry Respiratory Care Routine Q1H PRN until discontinued starting 02/10/2021 [facility] Work Phone: Comment on above: Q1H PRN until discon tinued starting 02/10/2021 End: 04-24-2019 XR Cervical Spine W Obliques Flexion and Extension XR Cervical Spine W Obliques Flexion and Extension Imaging Routine Once for 1 Occurrences starting 04/24/2019 until 04/24/2019 [place], [place] Comment on above: Once for 1 Occurrenc es starting 04/24/2019 until 04/24/2019 XR Cervical Spine W Obliques Flexion and Extension XR Cervical Spine W Obliques Flexion and Extension Imaging Routine 04/24/2019 9:25 AM EDT [place], [place] Payers Date Payer Category Payer Self-pay 2024 Unknown [id number] 2024 Unknown [id number] 2019 Medicare [id number] Medicare MEDICARE PART A B [id number] Unknown [id number] Unknown [id number] Unknown [id number] Unknown [id number] Unknown [id number] Social History Date Type Detail Facility [facility] Start: 1945 Sex Assigned At Not on file [facility] Start: 02-03-2021 End: 02-10-2021 Tobacco smoking status NHIS Current every day smoker [employer] Work Phone: History of tobacco use Cigarette Smoker S [facility] Start: 02-03-2021 End: 02-10-2021 Cigarettes smoked current (pack per day) - Reported [employer] Work Phone: Start: 02-03-2021 End: 02-10-2021 Tobacco use and exposure Never used [facility] Start: 02-03-2021 End: 03-17-2022 Alcohol intake Lifetime non-drinker (finding) [employer] Work Phone: Start: 02-03-2021 History SDOH Alcohol Frequency 1 [employer] Work Phone: Start: 03-07-2022 End: 03-17-2022 Exposure to SARS-CoV-2 (event) Not sure [employer] Start: 02-10-2021 Tobacco Comment last smoked 2200 [employer] Work Phone: Start: 1945 Sex Assigned At Male [facility] smoked [facility] Work Phone: Start: 12-25-2024 Sex Male (finding) [facility] Hospital Discharge instructions 03-17-2022 Discharge Instr - SONDRA Note Date & Type Note Facility 03-17-2022 Hospital Discharg e instructions Lazaro Loza, RUSLAN - 03/17/2022 3:34 PM EDT Continuity of Care Form Patient Name: Anson Jimenez : 1945 Admit date: 03/17/2022 Discharge [...] BACK SURGERY 10 years ago MICRODISECTOMY AT [facility] CARPAL TUNNEL RELEASE Right 02/10/2021 Right [...] (190 lb) Mental Status: {IP PT MENTAL STATUS:71477} IV Access: { SONDRA IV ACCESS:779337362} Nursing Mobility/ADLs: Walking Assisted Transfer Assisted Bathing Assisted Dressing Assisted Toileting Assisted Feeding Assisted Web Operations Lead Assisted Med Delivery whole Wound Care Documentation [...] Daily Fluid Restriction: {CHP DME Yes amt example:510795524} Last Modified Barium Swallow with Video (Video Swallowing Test): {Done Not Done Date:} Treatments at the Time of Hospital Discharge: Respiratory Treatments: Oxygen Therapy: {Therapy; copd oxygen:89158} Ventilator: {MH CC Vent List:369546281} Rehab Therapies: Physical Therapy and Occupational Therapy Weight Bearing Status/Restrictions: No weight bearing restrictions Other Medical Equipment (for information only, NOT a DME order): walker Other Treatments: Patient's personal belongings (please select all that are sent with patient): {CHP DME Belongings:257035456} RN SIGNATURE: {Esignature:358525550} CASE MANAGEMENT/SOCIAL WORK SECTION Inpatient Status Date: Readmission Risk Assessment Score: Readmission Risk Risk of Unplanned Readmission: 0 Discharging to Facility/ Agency Name: [facility] Address: [address] [place] [address] Dialysis Facility (if applicable) Name: Address: Dialysis Schedule: Phone: Fax: Ruby Rails Developer/Blanket Weaver signature: PHYSICIAN SECTION Prognosis: Good Condition at Discharge: Stable Rehab Potential (if transferring to Rehab): Good Recommended Labs or Other Treatments After Discharge: PT/OT for gait instability, degenerative lumbar disc disease, frequent falls Physician Certification: I certify the above information and transfer of Anson Jimenez is necessary for the continuing treatment [...] of Present illness Narrative Physical Therapy Facility/Department: [facility] Physical Therapy Initial Assessment Name: Anson Jimenez : 1945 Date of Service: 03/17/2022 Discharge Recommendations: Subacute/Assisted Facility PT Equipment Recommendations Other: tbd at [...] (10 years ago); Colonoscopy; Endoscopy, colon, diagnostic; [place] tooth extraction; and Carpal tunnel release (Right, [...] Prognosis: Good Decision Making: Medium Complexity [facility] Clinical Presentation: Pt admitted 03/17 with leg [...] Ambulation Assistance: Independent Transfer Assistance: Independent 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 Therapist cues pt for hand and foot [...] AM-PAC Inpatient Mobility Raw Score : 15 (03/17/221526) AM-PAC Inpatient T-Scale Score : 39.45 (03/17/221526) Mobility Inpatient CMS 0-100% Score: 57.7 (03/17/221526) Mobility Inpatient CMS G-Code Modifier : CK [...] 10 Kamlesh Lord PT Occupational Therapy Facility/Department: [facility] Occupational Therapy Initial Assessment Name: Anson Jimenez : 1945 Date of Service: 03/17/2022 Discharge Recommendations: Subacute/Assisted Facility Patient Diagnosis(es): The primary encounter diagnosis [...] (10 years ago); Colonoscopy; Endoscopy, colon, diagnostic; [place] tooth extraction; and Carpal tunnel release (Right, [...] Ambulation Assistance: Independent Transfer Assistance: Independent Active Tutorial Laboratory Supervisor: Yes Mode of Transportation: Car (tilll a [...] but required mod assist to stand [place] [facility] (bed very high versus [place] [facility] height) [...] FROM OR VIA CART. SPONT RESP. WITH SAFETY BELT INSTALLER IN ATTENDANCE. PLACED ON MONITOR. MONITOR ALARMS ON IN PACU. Ice pack to RT elbow/FA Timeout performed prior to regional block procedure. Dr Meehan in attendance. Patient lives alone due to his being in a prison. I spoke with his ride today, his [...] sent through Care Everywhere.Carpal Tunnel Release: Post-op (Wolof)Carpal Tunnel Release: Pre-op (Wolof)documented in this encounter [facility] Work Phone: Evaluation note Note Date & Type Note Facility Evaluation note Diagnosis Carpal tunnel syndrome of right wrist- Primary Carpal tunnel syndrome documented in this encounter [employer] Work Phone: Evaluation note Note Date & Type Note Facility Evaluation note Diagnosis Right leg weakness- Primary Other musculoskeletal symptoms referable to limbs Frequent falls Personal history of fall Degenerative disc disease, lumbar Degeneration of lumbar or lumbosacral intervertebral disc documented in this encounter [employer] Work Phone: Evaluation note Note Date & Type Note Facility Evaluation note No assessment information availa [facility] Work Phone: Hospital Discharge instructions Instructions [...] questions or concerns documented in this encounter [facility] Work Phone: Reason for referral (narrative) Note Date & Type Note Facility Reason for referral (narrative) No reason for referral information available [facility] Work Phone: Summary Purpose Family History No Family History Records FoundNo Family History Records FoundNo Family History Records Found Advance Directives No Advanced Directives Records FoundDocuments on File Type Date Recorded 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 ACP-Advance Directive ACP-Power of Medical Assistant Internal Medicine Latest Code Status on File Code Status Date Activated Date Inactivated Comments Full Code 02/10/2021 7:57 AM Latest Code Status on File Code Status Date Activated Date Inactivated Comments Full Code 02/10/2021 7:57 AM 02/10/2021 2:48 PM Chief Complaint and Reason for Visit Chief Complaint LABWORK Chief Complaint Admit Date RESIDENTIAL LAB WORK November 28, 2024 5: 00am RESIDENTIAL LAB WORK December 03, 2024 5: 00am Additional Source Comments (unrecognized sect ion and content) No Status Records FoundNo Status Records FoundNo Status Records Found INFORMATION SOURCE (unrecogn ized section and content) DATE CREATED AUTHOR 02/15/2018 [facility] DATE CREATED AUTHOR AUTHOR'S ORGANIZ ATION 03/20/2022 [facility] DATE CREATED AUTHOR AUTHOR'S ORGANIZ ATION 07/11/2025 [facility] Ordered Prescriptions (unrec ognized section and content) [...] % 100 mL IVPB 2,000 mg, Intravenous, PEST CONTROLLER ASSISTANT TO O.R., 1 dose, On Tue02/10/21 at 0815, Administer within 1 hour prior to incision. Recommend to repeat in 3-4 hours after initial dose if still intra-op., Pre-op (day of surgery) 814 (Due) dexameth sod auik-bsqmp-upvi (TAP) syringe SOSY 30 mL (COMPLETED) 30 mL, Transabdominal Plane, ONCE, On Tue02/10/21 at 0915, For 1 dose, Not a TAP block, brachial plexus block, PACU only 905 (Given by Other - Provider: Esthela Mclaughlin RN) famotidine (PEPCID) tablet 20 mg (COMPLETED) 20 mg, Oral, ONCE, On Tue02/10/21 at 0815, For 1 dose, Pre-op (day of surgery) 851 (Given - Provid er: Flavia Aleman RN) lidocaine PF 1 % injection 2 mL (COMPLETED) 2 mL, Intradermal, ONCE, On Tue02/10/21 at 0915, For 1 dose, Draw up for preparation of administration during block procedure., PACU only 904 (Given by Other - Provider: Esthela Mclaughlin, [...] HR is 60 or greater. If beta jose is contraindicated (HR less than 60, heart [...] Olivia RN)2031 (Not Given - Provider: Ashlyn Olivia RN - Reason: Loss of IV access) Linked Groups Order Group 1: Saline lock IV (COMPLETED) Routine, CONTINUOUS, Starting on Tue03/17/22 at 1230, Until Specified And sodium chloride flush 0.9 % injection 3 mLJump to med 3 mL, IntraVENous, EVERY 8 HOURS, First dose on Tue03/17/22 at 1221, Until Discontinued
Flush line with 3-5 mL
Care Teams (unrecognized sec tion and content) Corn Popper Relationship Specialty Start Date End Date Eric Mcdermott DO [address] [place] [id number] PCP - General 04/24/19 Team Status: Inactive Member Role Status Dates Barrett MADRIGAL Attending Provider Active Team Status: Inactive Member Role Status Dates Barrett MADRIGAL Attending Provider Active Star t: November 28, [...] BE BASED ON THE PRIMARY CLINICAL RECORDS. [facility] [employer] [facility]. provides no warranty or guarantee of the accuracy or completeness of information in this document.
[2025-07-30 08:30] LABS: Hematocrit 42.4 % (40-54); Hemoglobin 13.9 g/dL (13.0-16.5); Mean Corp Hgb Conc 32.8 g/dL (32-36); Mean Corpuscular Volume 92.8 fL (80-94); Mean Platelet Vol. 10.1 fl (6.2-12.0); Platelet Count 201 K/mm3 (150-450); RBC Distribution Width CV 15.0 % (11.6-14.6); RBC Distribution Width SD 51.8 fl (35.1-43.9); Red Blood Count 4.57 M/mm3 (4.6-6.2); White Blood Count 8.9 K/mm3 (4.4-11.0)
[2025-07-30 09:04] LABS: AST(SGOT) 18 U/L (<=37); Alanine Aminotransfer ALT/SGPT 14 U/L (<=46); Albumin, Serum 4.0 g/dL (3.4-4.8); Alkaline Phosphatase 95 U/L (40-129); Anion Gap 10 (5-15); BUN 18 mg/dL (4-19); BUN/Creat Ratio 14.4 RATIO (10-20); Calcium,Total 9.5 mg/dL (7.6-11.0); Carbon Dioxide 28.9 mmol/L (21.0-32.0); Chloride 103 mmol/L (98-108); Cholesterol 122 mg/dL (<=200); Globulin 2.8 g/dL (2.2-4.2); Glucose 91 mg/dL (70-99); Low Density Lipoprotein Calc. 50 mg/dL; Potassium 4.1 mmol/L (3.3-5.1); Triglycerides 64 mg/dL; Very Low Density Lipoprotein 13 mg/dL (5-40); Vitamin D,25 Hydroxy 52.7 ng/mL (30-100); cholesterol:hdl ratio screen 2.11
== END ==
LOC: OLS.ACW300 04:00
PROVIDERS: Referring Provider Family Medicine; Visit Provider Family Medicine
DX: M54.50 Low back pain, unspecified (principal); R53.81 Other malaise; F41.9 Anxiety disorder, unspecified; R26.81 Unsteadiness on feet
CPT/HCPCS: 36415; 80053; 80061; 82306; 85027